=== PATIENT | female | born 1965 | race Caucasian/White ===

== ENCOUNTER 2017-12-01 06:01 | Day surgery (SDC) | payer BC, SELFPAY ==
[2017-12-01] VITALS (10 sets, daily range): BP systolic 102–133; BP diastolic 44–86; PULSE 57–73; RESP 16–17; TEMP 36.3–37.1; O2SAT 90–100; BMI 24.3
--- NOTE | 2017-12-01 07:30 | GALL_PTH ---
PATIENT: SEJAL BALTAZAR LOC: [facility] – [place] U#:[id number] AGE/SX: 52/F ROOM: RE12/01/[address]: Dr. Mikel Ayoub MD : 1965 BED: DIS: 12/01/2017 SPEC #: [id number] RECD: 12/01/17 09:08 STATUS: ANGELO EVIN #: [id number] SORIN: 12/01/17 07:[address]: Mikel Ayoub DEPT: SURGICAL PATHOLOGY RECD BY: Bibi Cummings ENTERED: 12/01/17 10:03 SP TYPE: MAURICIO BUSTILLO DR: Dr. Albaro Anaya III, MD Tissues: Gallbladder, NOS Procedures: Surgery Specimen Level III HEADER OPERATION: Laparoscopic cholecystectomy with IOC PRE-OP DIAGNOSIS: Right upper quadrant pain, abnormal biliary HIDA scan TISSUE SUBMITTED: Gallbladder MICROSCOPIC DIAGNOSIS Gallbladder: Minimal chronic cholecystitis. No stones are identified in the container or in the gallbladder. SJ:deyanira 12/02/17 MICROSCOPIC DESCRIPTION Slides are reviewed. GROSS DESCRIPTION Received is one container labeled with the patient's name and designated gallbladder. The specimen consists of a gallbladder measuring 8 x 2.5 x 2.5 cm. The external surface is smooth and glistening. Focally, it is granular, hemorrhagic and contains cautery artifact. The lumen of the gallbladder contains mucoid bile and no calculi. The mucosa is bile-stained and without any mass lesions. The gallbladder wall averages 0.1 cm in thickness and is free of mass lesions. Ip/Mosaic Technician sections of the gallbladder and the cystic duct are submitted in one cassette. / AM:deyanira 12/01/17 TC:3 CPT: 82702
[2017-12-01] MEDS: Cefazolin 2 GM in 0.9% Normal Saline 100 ML IV (07:41)
[2017-12-01] MEDS: Bupivacaine 0.5% PF 10 ML VIAL (09:00)
--- NOTE | 2017-12-01 09:07 | PCM.OPRPT ---
Report of Operation Date of Procedure: 12/01/17 Pre-Operative Diagnosis: biliary colic Post-Operative Diagnosis: biliary colic, normal IOC Surgery/Procedure Performed:: laparoscopic cholecystectomy with intraoperative cholangiogram Description of Surgical Findings:: as above learning and development associate: Alvarado Ribeiro Type of Anesthesia:: General Anesthesiologist: Zach Rodriguez - ASA2 Specimen's removed: gallbladder Estimated Blood Loss (mL): 10 Fluids Replaced: 900 Description of Procedure: The patient was brought to the operating suite. Sign in was performed verifying patient, site, position, SCIP antibiotic prophylaxis- 2 gm of Ancef and DVT prophylaxis with SCDs. Following induction of general anesthetic. The patients abdomen was prepped and draped in the usual fashion. Timeout was performed verifying patient, site, position. Local anesthetic was injected below the umbilicus. Incision made and dissection carried down to the umbilical root fascia. 2 stay sutures were placed. Incision made in the fascia, the peritoneum entered under direct visualization. A 10 mm Peralta trocar was inserted and secured with the stay sutures. Pneumoperitoneum to 15 mmHg was insufflated. Visual inspection revealed few adhesions to the gallbladder. the remainder of the visualized intra-abdominal structures were unremarkable. 3 right upper quadrant 5 ports were placed in the standard position. The gallbladder was grasped retracted upward and outward. Dissection was carried out in Calots triangle. When a critical view of the neck of the gallbladder funneling of the cystic duct with no signs of aberrant ductal structures were seen, a clip was placed on the neck of the gallbladder cystic duct junction. A partial ductotomy was made. A Cholangiocath was inserted into the duct and secured with a clip. Intraoperative cholangiogram was performed demonstrating filling of the cystic duct filling the common bile duct and emptying into the duodenum without signs of obstruction area and the clip and catheter were removed. 2 clips placed on the cystic duct and the cystic duct divided. Dissection was continued until the cystic artery was clearly dissected and identified. The artery was then doubly clipped proximally singly clipped distally and divided. The gallbladder was then dissected free from the gallbladder fossa using electrocautery. The gallbladder was placed in an Endobag and removed through the umbilical port site. An 0 PDS diouln-fk-wqavo suture was placed around the umbilical port site defect. Pneumoperitoneum was reestablished. The gallbladder fossa was checked for hemostasis. With good hemostasis, the area was irrigated and aspirated to clear. 5mm ports were removed under direct visualization with no signs of bleeding. Pneumoperitoneum was released. The Peralta trocar was removed. The umbilical fascial suture was secured area did skin was closed with interrupted 4-0 Monocryl subcuticular sutures. Steri-Strips and bandages were applied. The patient was brought to recovery room in stable condition. - Admit VTE Documentation VTE Present on Admission: No VTE Mechan Device Prophylaxis: SCD's VTE Pharm Prophylaxis ordered?: No
--- NOTE | 2017-12-01 09:12 | PCM.DC.GB ---
Discharge Diet: Light diet - advance as tolerated Discharge Activity: May Not Drive - for 2-3 days or while taking narcotic pain medications., - - Do not drive, work heavy equipment or sign legal documents for 24 hours. May shower in (days): 1 - with the bandage in place. Additional Activity Instructions:: Pain medication may cause nausea. You should typically eat light foods as you take your pain medications. Pain medication may also cause constipation. If this is a problem for you, please discuss with your doctor. Call your doctor if your incision/area has: Continuous Slow Oozing, Sudden Increased Bleeding, Increased Pain/ Swelling, Increased Redness, Foul Smelling Discharge Call your doctor if you observe: Fever of 101 or Higher Suture Line Care: Avoid Pulling/Pushing, Avoid Pinching/Bending Additional Dressing/Incision Instructions:: Leave operative bandaids on for 2 days. When you remove dressing, leave Steri-Strips on until your follow-up appointment, or until the Steri-Strips fall off on their own. Allergies/Adverse Reactions: Allergies doxycycline Adverse Reaction (Verified 12/01/17 06:55) not sure- n/v erythromycin base Adverse Reaction (Verified 11/26/17 11:01) Nausea/Vom/Diarrhea nitrofurantoin [From Macrobid] Adverse Reaction (Verified 11/26/17 11:01) Nausea/Vom/Diarrhea tramadol [From Ultram] Adverse Reaction (Verified 11/26/17 11:01) Nausea/Vom/Diarrhea Medications to take at Discharge Omeprazole [Prilosec] 20 mg PO DAILY 03/23/16 Multivitamin [Multiple Vitamins] 1 each PO DAILY 11/26/17 Oxycodone HCl/Acetaminophen [Percocet 5/325] 1 tab PO Q4H PRN PRN 7 Days #14 tab 12/01/17 The following prescriptions were given: Oxycodone HCl/Acetaminophen [Percocet 5/325] 1 tab PO Q4H PRN PRN 7 Days #14 tab PRN Reason: Pain Primary Care Physician: Albaro Anaya III, MD [Primary Care Provider] - Test Results: Test results from this visit will be discussed in further detail at your follow-up appointment, if applicable. Please Follow Up With: Mikel Ayoub MD - Please call [phone] to schedule an appointment. When: 7 days after your surgery
== END 2017-12-01 11:52 | disposition home or self-care (01) ==
LOC: SDC 06:03 → AC 06:04
PROVIDERS: Family Provider Family Medicine; PCP Family Medicine; Visit Provider Surgery
PROC: (CPT 47610; principal; 2017-12-01 07:10)
DX: K81.1 Chronic cholecystitis (principal); E78.4 Other hyperlipidemia; K21.9 Gastro-esophageal reflux disease without esophagitis; Z78.0 Asymptomatic menopausal state; Z79.899 Other long term (current) drug therapy
CPT/HCPCS: 00790; 47563; 74300; 76000; 88304; 93005; J7120

== ENCOUNTER → 2018-07-13 15:51 | Outpatient (CLI) | payer BC, SELFPAY ==
[2017-12-01 06:57] VITALS: BMI 24.3
== END ==
PROVIDERS: Family Provider Family Medicine; PCP Family Medicine; Referring Provider Otolaryngology; Visit Provider Otolaryngology
DX: H66.41 Suppurative otitis media, unspecified, right ear (principal)
CPT/HCPCS: 87070; 87075; 87077; 87186; 87205

== ENCOUNTER → 2023-06-09 | Outpatient (CLI) | payer OTHER, SELFPAY ==
--- OUTSIDE RECORDS SUMMARY | 2023-06-09 10:28 | XMS RPT_ITS | CCD ---
Author Name Unknown Address [address] [place] [address] Organization [facility] Care Team Providers Care [facility] Name Role Phone KERRY PARISH (SIMONIZER) Unavailable Unavailable JAMES, ANNIE PAC Admitting Unavailable JAMES, ANNIE PAC Attending Unavailable JAMES, ANNIE PAC Primary Care Unavailable CEBUL ALEXANDRE III Consulting Unavailable PROVIDER, UNKNOWN Consulting Unavailable JAMES, ANNIE PAC Admitting Unavailable JAMES, ANNIE PAC Attending Unavailable JAMES, ANNIE PAC Primary Care Unavailable CEBUAliyah ALEXANDRE III Consulting Unavailable PROVIDER, UNKNOWN Consulting Unavailable Ramez Sanchez MD Primary Care Provider Ramez Sanchez MD Primary Care Provider RAMEZ SANCHEZ Primary Care Unavailab RAMEZ Varela Primary Care Unavailab CYNTHIA Bunch Attending Unavailable JAZMYNE PINEDA Referring Unavailable RAMEZ SANCHEZ Primary Care Unavailab RAMEZ Varela Primary Care Unavailab JAZMYNE Schneider Attending Unavailable RAMEZ SANCHEZ Primary Care Unavailab MIKY Shelley Attending Unavailable MIKY URBANO Referring Unavailable RAMEZ SANCHEZ Primary Care Unavailab MIKY Shelley Attending Unavailable RAMEZ SANCHEZ Primary Care Unavailab MIKY Shelley Referring Unavailable RAMEZ SANCHEZ Primary Care Unavailab RAMEZ Varela Referring Unavailab RAMEZ Varela Primary Care Unavailab RAMEZ Varela Attending Unavailab RAMEZ Varela Primary Care Unavailab RAMEZ Varela Attending Unavailab RAMEZ Varela Referring Unavailab RAMEZ Varela Primary Care Unavailab RAMEZ Varela Primary Care Unavailab le Allergies Allergy Classification Reported Allergen(s) Allergy Type Date of Onset Reaction(s) Facility (20 sources) doxycycline; Translations: [DOXYCYCLINE] Drug Allergy 02-16-[address] [facility] Repository (20 sources) erythromycin; Translations: [ERYTHROMYCIN] Drug Allergy 11-21-[address] [facility]ository (20 sources) traMADol; Translations: [TRAMADOL HCL] Drug Allergy 11-21-[address] [facility]ository (20 sources) NITROFURANTOIN MONOHYD/M-CRYST; Translations: [NITROFURANTOIN MONOHYD/M-CRYST] Propensity to adverse reactions to drug (disorder) 08-18-19 10 GI Upset, Vomiting [facility] Medications Current Medications Medication Drug Class(es) Dates Sig (Normalized) Sig (Original) cephalexin 500 mg oral capsule (2 sources) Cephalosporin Antibacterial Start: 06-02-2023 End: 06-09-2023 take 1 capsule by mouth twice daily cephALEXin (KEFLEX) 500 mg capsule Indications: Urinary frequency Take 1 capsule by mouth two times a day for 7 days. 14 capsule 0 06/02/2023 06/09/2023 Active Completed/Discontinued Medications Medication Drug Class(es) Dates Sig (Normalized) Sig (Original) MULTI-VITAMIN TAB (19 sources) Start: 03-03-2005 MULTI-VITAMIN TAB .QD 0 03/03/2005 Active Problems Active Problems Problem Classification Problem Date Documented Date Episodic/Chronic Esophageal disorders (20 sources) Gastroesophageal reflux disease without esophagitis; Translations: [Gastro-esophageal reflux disease without esophagitis] Onset: 11-20-2004 10-17-2018 Chronic Nonmalignant breast conditions (1 source) Mastodynia; Translations: [Mastodynia] Episodic Other connective tissue disease (1 source) Pain of left upper arm; Translations: [Pain in left upper arm] Episodic Other female genital disorders (1 source) Vaginal irritation; Translations: [Other specified noninflammatory disorders of vagina] Episodic Other nervous system disorders (20 sources) Bilateral carpal tunnel syndrome; Translations: [Carpal tunnel syndrome, bilateral upper limbs] Onset: 04-17-2019 04-17-2019 Chronic Other nervous system disorders (1 source) Neuropathy; Translations: [Polyneuropathy, unspecified] 12-14-2022 Chronic Other nervous system disorders (1 source) Numbness and tingling sensation of skin; Translations: [Anesthesia of skin] Episodic Other nutritional; endocrine; and metabolic disorders (1 source) Overweight in adulthood with body mass index of 25 or more but less than 30; Translations: [Overweight] 12-14-2022 Episodic Other screening for suspected conditions (not mental disorders or infectious disease) (5 sources) Patient encounter status; Translations: [Encounter for screening mammogram for malignant neoplasm of breast] Onset: 03-09-2023 Episodic Other skin disorders (1 source) Longitudinal melanonychia; Translations: [Other nail disorders] Episodic Other upper respiratory disease (1 source) Other seasonal allergic rhinitis; Translations: [Seasonal allergies] Onset: 08-24-2022 Chronic Other upper respiratory infections (3 sources) Acute upper respiratory infection; Translations: [Acute upper respiratory infection, unspecified] Episodic Spondylosis; intervertebral disc disorders; other back problems (20 sources) Degeneration of lumbar intervertebral disc; Translations: [Other intervertebral disc degeneration, lumbar region] Onset: 08-20-2015 08-20-2015 Chronic Past or Other Problems Problem Classification Problem Date Documented Date Episodic/Chronic Abdominal pain (20 sources) Right upper quadrant pain; Translations: [Epigastric pain] Onset: 10-19-2017 10-17-2018 Episodic Genitourinary symptoms and ill-defined conditions (4 sources) Increased frequency of urination; Translations: [Frequency of micturition] Onset: 10-13-2022 Episodic Immunizations and screening for infectious disease (4 sources) Needs influenza immunization; Translations: [Encounter for immunization] Onset: 12-14-2022 Episodic Other female genital disorders (1 source) Other specified noninflammatory disorders of vagina; Translations: [Vaginal irritation] Onset: 10-13-2022 Episodic Other nervous system disorders (1 source) Anesthesia of skin; Translations: [Numbness and tingling] Onset: 06-19-2022 Episodic Other nervous system disorders (1 source) Paresthesia of skin; Translations: [Numbness and tingling] Onset: 06-19-2022 Episodic Other nutritional; endocrine; and metabolic disorders (1 source) Overweight; Translations: [Overweight (BMI 25.0-29.9)] Onset: 08-24-2022 Episodic Residual codes; unclassified (19 sources) Family history of osteoporosis; Translations: [Family history of osteoporosis] Onset: 12-18-2014 12-18-2014 Episodic Sexually transmitted infections (not HIV or hepatitis) (20 sources) Human papillomavirus deoxyribonucleic acid test positive, high risk on cervical specimen; Translations: [Cervical high risk human papillomavirus (HPV) DNA test positive] Onset: 03-29-2020 03-29-2020 Episodic Spondylosis; intervertebral disc disorders; other back problems (20 sources) Low back pain; Translations: [Lumbago] Onset: 05-11-2000 11-20-2004 Episodic Results Test Name Value Interpretation Reference Range Facil ity Vital Signs Date Time Vital Sign Value Performing Clinician Faci lity 06-02-2023 11:37-0500 Body temperature 97.81 [degF] Nancy Bennett APRN.SIMONIZER Work Phone: [facility] 06-02-2023 11:37-0500 Body weight 71.58 kg Nancy Bennett APRN.SIMONIZER Work Phone: [facility] 06-02-2023 11:37-0500 Diastolic blood pressure 82 mm[Hg] Nancy Bennett APRN.SIMONIZER Work Phone: [facility] 06-02-2023 11:37-0500 Heart rate 81 /min Nancy Bennett APRN.SIMONIZER Work Phone: [facility] 06-02-2023 11:37-0500 Respiratory rate 19 /min Nancy Bennett APRN.SIMONIZER Work Phone: [facility] 06-02-2023 11:37-0500 SaO2% (BldA) [Mass fraction] 97 % Nancy Bennett APRN.SIMONIZER Work Phone: [facility] 06-02-2023 11:37-0500 Systolic blood pressure 110 mm[Hg] Nancy Bennett APRN.SIMONIZER Work Phone: [facility] 12-14-2022 09:37-0400 Body weight 71.76 kg Ramez Sanchez MD Work Phone: [facility] 12-14-2022 09:37-0400 Diastolic blood pressure 76 mm[Hg] Ramez Sanchez MD Work Phone: [facility] 12-14-2022 09:37-0400 Heart rate 74 /min Ramez Sanchez MD Work Phone: [facility] 12-14-2022 09:37-0400 Respiratory rate 16 /min Ramez Sanchez MD Work Phone: [facility] 12-14-2022 09:37-0400 SaO2% (BldA) [Mass fraction] 100 % Ramez Sanchez MD Work Phone: [facility] 12-14-2022 09:37-0400 Systolic blood pressure 112 mm[Hg] Ramez Sanchez MD Work Phone: [facility] 10-13-2022 10:41-0400 Body temperature 97.59 [degF] Ramez Sanchez MD Work Phone: [facility] 10-13-2022 10:41-0400 Diastolic blood pressure 70 mm[Hg] Ramez Sanchez MD Work Phone: [facility] 10-13-2022 10:41-0400 Heart rate 66 /min Ramez Sanchez MD Work Phone: [facility] 10-13-2022 10:41-0400 Respiratory rate 16 /min Ramez Sanchez MD Work Phone: [facility] 10-13-2022 10:41-0400 SaO2% (BldA) [Mass fraction] 98 % Ramez Sanchez MD Work Phone: [facility] 10-13-2022 10:41-0400 Systolic blood pressure 110 mm[Hg] Ramez Sanchez MD Work Phone: [facility] 10-02-2022 15:28-0400 Body temperature 99.7 [degF] Reji Lafleur MD Work Phone: [facility] 10-02-2022 15:28-0400 Body weight 70.58 kg Reji Lafleur MD Work Phone: [facility] 10-02-2022 15:28-0400 Diastolic blood pressure 94 mm[Hg] Reji Lafleur MD Work Phone: [facility] 10-02-2022 15:28-0400 Heart rate 92 /min Reji Lafleur MD Work Phone: [facility] 10-02-2022 15:28-0400 Respiratory rate 18 /min Reji Lafleur MD Work Phone: [facility] 10-02-2022 15:28-0400 SaO2% (BldA) [Mass fraction] 98 % Reji Lafleur MD Work Phone: [facility] 10-02-2022 15:28-0400 Systolic blood pressure 130 mm[Hg] Reji Lafleur MD Work Phone: [facility] 09-21-2022 13:43-0400 Body temperature 96.91 [degF] Maggi Praisler-Wood ADMINISTRATIVE SERVICES OFFICER.SIMONIZER Work Phone: [facility] 09-21-2022 13:43-0400 Body weight 71.67 kg Maggi Praisler-Wood ADMINISTRATIVE SERVICES OFFICER.SIMONIZER Work Phone: [facility] 09-21-2022 13:43-0400 Diastolic blood pressure 72 mm[Hg] Maggi Praisler-Wood ADMINISTRATIVE SERVICES OFFICER.SIMONIZER Work Phone: [facility] 09-21-2022 13:43-0400 Heart rate 80 /min Maggi Praisler-Wood ADMINISTRATIVE SERVICES OFFICER.SIMONIZER Work Phone: [facility] 09-21-2022 13:43-0400 Respiratory rate 16 /min Maggi Praisler-Wood ADMINISTRATIVE SERVICES OFFICER.SIMONIZER Work Phone: [facility] 09-21-2022 13:43-0400 SaO2% (BldA) [Mass fraction] 95 % Maggi Praisler-Wood ADMINISTRATIVE SERVICES OFFICER.SIMONIZER Work Phone: [facility] 09-21-2022 13:43-0400 Systolic blood pressure 122 mm[Hg] Maggi Praisler-Wood ADMINISTRATIVE SERVICES OFFICER.SIMONIZER Work Phone: [facility] 06-19-2022 11:41-0500 Body temperature 98.1 [degF] Jazmyne Tannhof ADMINISTRATIVE SERVICES OFFICER.SIMONIZER Work Phone: [facility] 06-19-2022 11:41-0500 Body weight 69.4 kg Jazmyne Tannhof ADMINISTRATIVE SERVICES OFFICER.SIMONIZER Work Phone: [facility] 06-19-2022 11:41-0500 Diastolic blood pressure 88 mm[Hg] Jazmyne Tannhof ADMINISTRATIVE SERVICES OFFICER.SIMONIZER Work Phone: [facility] 06-19-2022 11:41-0500 Heart rate 82 /min Jazmyne Tannhof ADMINISTRATIVE SERVICES OFFICER.SIMONIZER Work Phone: [facility] 06-19-2022 11:41-0500 Respiratory rate 16 /min Jazmyne Tannhof ADMINISTRATIVE SERVICES OFFICER.SIMONIZER Work Phone: [facility] 06-19-2022 11:41-0500 SaO2% (BldA) [Mass fraction] 96 % Jazmyne Tannhof ADMINISTRATIVE SERVICES OFFICER.SIMONIZER Work Phone: [facility] 06-19-2022 11:41-0500 Systolic blood pressure 120 mm[Hg] Jazmyne Tannhof ADMINISTRATIVE SERVICES OFFICER.SIMONIZER Work Phone: [facility] 04-27-2022 15:06-0500 Body temperature 97.81 [degF] Cynthia Podlogar ADMINISTRATIVE SERVICES OFFICER.SIMONIZER Work Phone: [facility] 04-27-2022 15:06-0500 Body weight 70.22 kg Cynthia Podlogar ADMINISTRATIVE SERVICES OFFICER.SIMONIZER Work Phone: [facility] 04-27-2022 15:06-0500 Diastolic blood pressure 68 mm[Hg] Cynthia Podlogar ADMINISTRATIVE SERVICES OFFICER.SIMONIZER Work Phone: [facility] 04-27-2022 15:06-0500 Heart rate 81 /min Cynthia Podlogar ADMINISTRATIVE SERVICES OFFICER.SIMONIZER Work Phone: [facility] 04-27-2022 15:06-0500 Respiratory rate 20 /min Cynthia Podlogar ADMINISTRATIVE SERVICES OFFICER.SIMONIZER Work Phone: [facility] 04-27-2022 15:06-0500 SaO2% (BldA) [Mass fraction] 99 % Cynthia Podlogar ADMINISTRATIVE SERVICES OFFICER.SIMONIZER Work Phone: [facility] 04-27-2022 15:06-0500 Systolic blood pressure 126 mm[Hg] Cynthia Podlogar ADMINISTRATIVE SERVICES OFFICER.SIMONIZER Work Phone: [facility] 03-23-2022 15:16-0500 Body weight 69.4 kg Miky Urbano MD Work Phone: [facility] 03-23-2022 15:16-0500 Diastolic blood pressure 82 mm[Hg] Miky Urbano MD Work Phone: [facility] 03-23-2022 15:16-0500 Systolic blood pressure 122 mm[Hg] Miky Urbano MD Work Phone: [facility] 03-03-2022 14:01-0500 Body height 158.8 cm Miky Urbano MD Work Phone: [facility] 03-03-2022 14:01-0500 Body weight 68.49 kg Miky Urbano MD Work Phone: [facility] 03-03-2022 14:01-0500 Diastolic blood pressure 78 mm[Hg] Miky Urbano MD Work Phone: [facility] 03-03-2022 14:01-0500 Systolic blood pressure 116 mm[Hg] Miky Urbano MD Work Phone: [facility] 02-11-2022 14:42-0400 Body weight 69.31 kg Cynthia Podlogar ADMINISTRATIVE SERVICES OFFICER.SIMONIZER Work Phone: [facility] 02-11-2022 14:42-0400 Diastolic blood pressure 84 mm[Hg] Cynthia Podlogar ADMINISTRATIVE SERVICES OFFICER.SIMONIZER Work Phone: [facility] 02-11-2022 14:42-0400 Heart rate 69 /min Cynthia Podlogar ADMINISTRATIVE SERVICES OFFICER.SIMONIZER Work Phone: [facility] 10-26-2022 14:42-0400 Respiratory rate 16 /min Cynthia Podlogar ADMINISTRATIVE SERVICES OFFICER.SIMONIZER Work Phone: [facility] 02-11-2022 14:42-0400 SaO2% (BldA) [Mass fraction] 96 % Cynthia Podlogar ADMINISTRATIVE SERVICES OFFICER.SIMONIZER Work Phone: [facility] 02-11-2022 14:42-0400 Systolic blood pressure 122 mm[Hg] Cynthia Podlogar ADMINISTRATIVE SERVICES OFFICER.SIMONIZER Work Phone: [facility] Encounters Encounter Date Encounter Type Care Provider Facility Start: 06-02-2023 End: 06-02-2023 ambulatory RAMEZ SANCHEZ Facility:[facility] Start: 06-02-2023 End: 06-02-2023 Patient encounter procedure Nancy Bennett APRN.SIMONIZER Work Phone: [facility] Procedures Date Procedure Procedure Detail Performing Clinician Start: 06-02-2023 Urnls dip stick/tabl et rgnt auto w/o microscopy Nancy Bennett APRN.SIMONIZER Work Phone: Start: 12-14-2022 Lipid 1996 panel - S dilan or Plasma Screen Wstr Start: 10-13-2022 Urnls dip stick/tabl et rgnt auto w/o microscopy Ramez Sanchez MD Work Phone: Start: 10-13-2022 Urnls dip stick/tabl et rgnt auto w/o microscopy Ramez Sanchez MD Work Phone: Start: 10-02-2022 Urnls dip stick/tabl et rgnt auto w/o microscopy Nancy Bennett APRN.SIMONIZER Work Phone: Start: 09-21-2022 COVID WITH FLUA+B, ROUTINE Maggi Taveras ADMINISTRATIVE SERVICES OFFICER.SIMONIZER Work Phone: Start: 09-21-2022 STREP A MOLECULAR (POC) Jaquelin Schmid PA-C Work Phone: Start: 03-23-2022 INFLUENZA VACCINE QUADRIVALENT 6 MO - 64 YRS IM Miky Urbano MD Work Phone: Start: 03-23-2022 Urine test visual color cmprsn meths Miky Urbano MD Work Phone: Start: 03-05-2022 MINDI SCREENING W JEZ Co juanito Noble ADMINISTRATIVE SERVICES OFFICER.CNM Work Phone: Start: 03-05-2022 Mammography Mammograph y Coordinator Start: 02-19-2021 Mammography Cynthia Podl joon ADMINISTRATIVE SERVICES OFFICER.SIMONIZER Work Phone: Start: 07-16-2017 Colonoscopy Cynthia Podl ogdanis ADMINISTRATIVE SERVICES OFFICER.SIMONIZER Work Phone: Plan of Treatment Date Care Activity Detail Author Start: 03-09-2028 HPV Testing HPV Testing [facility] Start: 03-09-2028 Pap Testing Pap Testing [facility] Start: 03-09-2028 Screening for malign ant neoplasm of cervix [facility] Start: 12-15-2027 Lipid 1996 panel - S dilan or Plasma Lipid Screening [facility] Start: 12-15-2027 Lipid panel Lipid Screening [facility] Start: 12-15-2027 LIPID SCREEN LIPID SCREEN [facility] Start: 09-28-2027 Urine microalbumin profile [facility] Start: 07-17-2027 Colonoscopy COLONOSCOPY [facility] Start: 07-17-2027 COLORECTAL CANCER SCREENING COLORECTAL CANCER SCREENING [facility] Start: 07-17-2027 Screening for malign ant neoplasm of colon [facility] Start: 03-03-2027 HPV TESTING HPV TESTING [facility] Start: 03-03-2027 PAP TESTING PAP TESTING [facility] Start: 04-14-2026 LIPID SCREEN LIPID SCREEN [facility] Start: 03-07-2026 HPV TESTING HPV TESTING [facility] Start: 03-07-2026 PAP TESTING PAP TESTING [facility] Start: 12-14-2025 DIABETES SCREEN DIABETES SCREEN [facility] Start: 12-14-2025 Diabetes Screening Diabetes Screenin g [facility] Start: 06-19-2025 DIABETES SCREEN DIABETES SCREEN [facility] Start: 04-14-2024 DIABETES SCREEN DIABETES SCREEN [facility] Start: 03-09-2024 Mammography Mammogram Screening [facility] Start: 03-09-2024 Screening for malign ant neoplasm of breast Mammogram Screening [facility] Start: 12-15-2023 COVID-19 VACCINE (#1) COVID-19 VACCI NE (#1) [facility] Immunizations Immunization Date Immunization Notes Care Provider Dayana matos 03-23-2022 influenza, injectabl e, quadrivalent, contains preservative Miky Urbano MD Work Phone: [facility] 03-23-2022 influenza virus vacc ine, unspecified formulation Screen Wstr [facility] 03-19-2021 influenza, injectabl e, quadrivalent, contains preservative Cynthia Podlogar ADMINISTRATIVE SERVICES OFFICER.SIMONIZER Work Phone: [facility] 02-18-2020 influenza, seasonal, injectable Cynthia Podlogar ADMINISTRATIVE SERVICES OFFICER.[facility] Work Phone: [facility] 02-17-2019 influenza, seasonal, injectable Cynthia Podlogar ADMINISTRATIVE SERVICES OFFICER.[facility] Work Phone: [facility] 01-26-2018 influenza, injectabl e, quadrivalent, preservative free Cynthia Podlogar ADMINISTRATIVE SERVICES OFFICER.[facility] Work Phone: [facility] Work Phone: 09-27-2017 tetanus toxoid, redu jasper diphtheria toxoid, and acellular pertussis vaccine, adsorbed Cynthia Podlogar ADMINISTRATIVE SERVICES OFFICER.[facility] Work Phone: [facility] 02-17-2011 influenza virus vacc ine, unspecified formulation Cynthia Podlogar ADMINISTRATIVE SERVICES OFFICER.[facility] Work Phone: [facility] 04-03-2009 novel Influenza-H1N1 -09, live virus for nasal administration Cynthia Podlogar ADMINISTRATIVE SERVICES OFFICER.SIMONIZER Work Phone: [facility] Work Phone: 12-18-2002 influenza virus vacc ine, unspecified formulation Cynthia Podlogar ADMINISTRATIVE SERVICES OFFICER.[facility] Work Phone: [facility] 12-18-2002 influenza virus vacc ine, whole virus Cynthia Podlogar ADMINISTRATIVE SERVICES OFFICER.[facility] Work Phone: [facility] Work Phone: Payers Date Payer Category Payer Unknown [id number] 2022 Unknown [id number] 2011 Unknown [id number] 1965 Unknown [id number] 1965 Unknown [id number] Unknown [id number] Social History Date Type Detail Facility Start: 02-11-2022 Tobacco smoking stat us LAIS Never smoked tobacco [facility] Start: 02-11-2022 Tobacco use and exposure Smoke less tobacco non-user [facility] Start: 02-11-2022 End: 06-02-2023 Alcohol intake Current drinker of alcohol (finding) [facility] Start: 02-20-2020 End: 08-23-2022 History SDOH Alcohol Frequency 3 [facility] Start: 02-20-2020 End: 08-23-2022 History SDOH Alcohol Std Drinks 1 [facility] Start: 04-05-2014 [facility] Start: 1965 Sex Assigned At Not on file [facility] Start: 02-21-2022 End: 03-03-2022 Exposure to SARS-CoV-2 (event) Not sure [facility] Start: 08-23-2022 History SDOH Alcohol Std Drinks 2 [facility] Start: 08-23-2022 History SDOH Social Connections Phone 5 [facility] Start: 08-23-2022 History SDOH Physica l Activity DPW 4 [facility] Start: 08-23-2022 History SDOH Physica l Activity MPS 6 [facility] Start: 08-23-2022 End: 12-14-2022 [facility] Start: 08-23-2022 End: 12-14-2022 Social connection and isolation panel [facility] Do you belong to any clubs or organizations such as judaism groups, unions, fraternal or athletic groups, or school groups? No [facility] Attends Club or Organization Meetings Not on file [facility] Are you now , , , , never or living with a partner? [facility] How often to you hav e a drink containing alcohol? 2-4 times a month [facility] How many standard dr inks containing alcohol do you have on a typical day? 3 or 4 [facility] How often do you hav e 6 or more drinks on 1 occasion? Monthly [facility] Do you feel stress - tense, restless, nervous, or anxious, or unable to sleep at night because your mind is troubled all the time - these days [OSQ] Not at all [facility] (I/We) worried wheth er (my/our) food would run out before (I/we) got money to buy more. Never true [facility] How many standard dr inks containing alcohol do you have on a typical day? 1 or 2 [facility] How often do you hav e 6 or more drinks on 1 occasion? Never [facility] How often do you hav e 6 or more drinks on 1 occasion? Monthly [facility] Clinical Notes 10-17-2018 to 06-02-2023 Nancy Bennett APRN.[facility] - 06/02/2023 11:37 AM ESTTelephone Encounter - Lizette Urban LPN - 03/23/2023 10:16 AM ESTTelephone Encounter - Lizette Urban LPN - 03/23/2023 10:13 AM EST Note Date & Type Note Facility 06-02-2023 Note HNO ID: [id number] Author: NANCY BENNETT APRN.[place] Service: ? Author Type: Nurse Practitioner Type: Progress Notes Filed: 06/02/2023 11:49 Note Text: CC: Patient presents with: Urinary Problem: Frequency, painful x 3 days HPI Carlene Baltazar is a 57 year old female who presents with complaint of possible UTI. These symptoms have been present for 3 days. Associated symptoms: burning and frequency Denies: fever, chills, sweats, abdominal pain, and flank pain Treatments: nothing The ROS was otherwise negative. PMH, Medications, labs, allergies, and recent past visits with PCP were reviewed and updated as able. 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-[facility] [place] [facility] Carpal tunnel syndrome Right Cervical high risk HPV (human papillomavirus) test positive 2018,2019,2020 Degenerative lumbar disc 08/20/2015 Esophageal reflux resolved Hyperlipidemia LDL goal <130 11/20/2004 Lumbago Better Lumbosacral radiculopathy at S1 12/26/2015 Other and unspecified hyperlipidemia Palpitations resolved Piriformis syndrome of left side 08/20/2015 Plantar fasciitis Snoring PAST SURGICAL HISTORY Procedure Laterality Date COLONOSCOPY FLX DX W/COLLJ SPEC WHEN PFRMD 07/16/2017 Colonoscopy - normal-10 year follow-up ESOPHAGOGASTRODUODENOSCOPY TRANSORAL DIAGNOSTIC 11/05/2017 EGD ESSURE Approx 2004 LAPAROSCOPY SURG CHOLECYSTECTOMY 12/01/2017 Cholecystectomy, lap PAST SURGICAL HISTORY OF Left 08/2021 Removal of basosquamous skin cancer from left shoulder RETROGRADE URETHROGRAM REVISE MEDIAN N/CARPAL TUNNEL SURG Right 11/2021 ALLERGIES Doxycycline, Erythromycin, Macrobid [Nitrofurantoin Monohyd/M-Cryst], and Ultram [Tramadol Hcl] MEDICATIONS omeprazole (PRILOSEC) 20 mg capsule TAKE 1 CAPSULE DAILY BEFOREBREAKFAST; 1/2 HOUR BEFORE A MEAL MULTI-VITAMIN TAB .QD FAMILY HISTORY Problem Relation Age of Onset Thyroid Mother Osteoporosis Mother other (gerd) Mother Alcohol/Drug Father CIRRHOSIS Cancer Maternal Uncle Diabetes Paternal Grandmother Hypertension Paternal Grandmother Stroke Paternal Grandmother Diabetes Paternal Grandfather of [place] Diabetes Brother Alcohol/Drug Brother Social History Tobacco Use Smoking status: Never Smokeless tobacco: Never Vaping Use Vaping Use: Never used Substance Use Topics Alcohol use: Yes Alcohol/week: 3.0 standard drinks of alcohol Types: 3 Glasses of wine per week Comment: Occasionally Drug use: No ASSESSMENT/PLAN: 1. Urinary frequency - ICD9: 788.41, ICD10: R35.0 - UA DIP, URINE (POC) - URINE CULTURE - CEPHALEXIN 500 MG CAPSULE Prescription instructions reviewed with patient as applicable. Potential red flag symptoms discussed with the patient. Reviewed appropriate action plan to take if red flag symptoms occur. Patient agreeable to treatment plan. Nancy Bennett APRN.[facility] 06-02-2023 History of Presen t illness Narrative CC: Patient presents with: Urinary Problem: Frequency, painful x 3 days HPI Carlene Baltazar is a 57 year old female who presents with complaint of possible UTI. These symptoms have been present for 3 days. Associated symptoms: burning and frequency Denies: fever, chills, sweats, abdominal pain, and flank pain Treatments: nothing The ROS was otherwise negative. PMH, Medications, labs, allergies, and recent past visits with PCP were reviewed and updated as able. PHYSICAL EXAM: [facility] 12/09/2014 General: Well appearing and alert CV: Regular rate and rhythm without obvious murmur Lungs: clear to auscultation bilaterally Back: straight and symmetric Abdomen: soft, nontender, nondistended PAST MEDICAL HISTORY Diagnosis Date Arthritis of left hip 08/20/2015 Basosquamous carcinoma of skin Removed 08/2021-[facility] [place] [facility] Carpal tunnel syndrome Right Cervical high risk HPV (human papillomavirus) test positive 2018,2019,2020 Degenerative lumbar disc 08/20/2015 Esophageal reflux resolved Hyperlipidemia LDL goal <130 11/20/2004 Lumbago Better Lumbosacral radiculopathy at S1 12/26/2015 Other and unspecified hyperlipidemia Palpitations resolved Piriformis syndrome of left side 08/20/2015 Plantar fasciitis Snoring PAST SURGICAL HISTORY Procedure Laterality Date COLONOSCOPY FLX DX W/COLLJ SPEC WHEN PFRMD 07/16/2017 Colonoscopy - normal-10 year follow-up ESOPHAGOGASTRODUODENOSCOPY TRANSORAL DIAGNOSTIC 11/05/2017 EGD ESSURE Approx 2004 LAPAROSCOPY SURG CHOLECYSTECTOMY 12/01/2017 Cholecystectomy, lap PAST SURGICAL HISTORY OF Left 08/2021 Removal of basosquamous skin cancer from left shoulder RETROGRADE URETHROGRAM REVISE MEDIAN N/CARPAL TUNNEL SURG Right 11/2021 ALLERGIES Doxycycline, Erythromycin, Macrobid [Nitrofurantoin Monohyd/M-Cryst], and Ultram [Tramadol Hcl] MEDICATIONS omeprazole (PRILOSEC) 20 mg capsule TAKE 1 CAPSULE DAILY BEFOREBREAKFAST; 1/2 HOUR BEFORE A MEAL MULTI-VITAMIN TAB .QD FAMILY HISTORY Problem Relation Age of Onset Thyroid Mother Osteoporosis Mother other (gerd) Mother Alcohol/Drug Father CIRRHOSIS Cancer Maternal Uncle Diabetes Paternal Grandmother Hypertension Paternal Grandmother Stroke Paternal Grandmother Diabetes Paternal Grandfather of [place] Diabetes Brother Alcohol/Drug Brother Social History Tobacco Use Smoking status: Never Smokeless tobacco: Never Vaping Use Vaping Use: Never used Substance Use Topics Alcohol use: Yes Alcohol/week: 3.0 standard drinks of alcohol Types: 3 Glasses of wine per week Comment: Occasionally Drug use: No ASSESSMENT/PLAN: 1. Urinary frequency - ICD9: 788.41, ICD10: R35.0 - UA DIP, URINE (POC) - URINE CULTURE - CEPHALEXIN 500 MG CAPSULE Prescription instructions reviewed with patient as applicable. Potential red flag symptoms discussed with the patient. Reviewed appropriate action plan to take if red flag symptoms occur. Patient agreeable to treatment plan. Nancy Bennett APRN.[facility] documented in this encounter [facility] 03-31-2023 Note HNO ID: [id number] Author: Miky Urbano MD Service: ? Author Type: Physician Type: Progress Notes Filed: 03/31/2023 4:17 PM Note Text: Emergency Dispatch Operator offered: Patient accepts, visit chaperoned by Elisa Rodas MA. Carlene is a 57 year old who presents today for a colposcopy. The patient's last pap smear was Positive HPV from February 2023. Patient has a history of abnormal pap: Yes. The patient has had prior treatment: Colposcopy. test: negative UNIVERSAL PROTOCOL / SAFETY CHECKLIST Procedure to be Performed: Colposcopy Sign In: A Moment of CARE was completed. Personnel directly involved with the procedure wore the appropriate PPE (Personal Protective Equipment). Patient/Surrogate Stated/Verified: PATIENT VERIFIED(optional for EMERGENT procedures): Patient name, Date of , Relevant allergies, and The intended procedure Time Out Communication: Intended patient and procedure match the source documents. Consent documented and matches the intended procedure. Relevant labs, photos, and/or imaging studies have been reviewed. No implant(s) inserted. Sign Out: SIGN OUT (optional for EMERGENT procedures): All specimen containers correctly labeled. All instruments, equipment, possible retained foreign bodies accounted for. Post-procedure follow-up management communicated and Plan of Care Visit completed when applicable. PROCEDURE: EXTERNAL GENITALIA: Normal in appearance without lesions VAGINA: Normal in appearance without lesions CERVIX: Speculum placed in vagina and excellent visualization of cervix achieved. Cervix swabbed x 3 with 3% acetic acid solution. Cervix grossly normal. Squamocolumnar junction visualized. acetowhite changes noted at 12-1, 3 oclock, punctations noted -none, mosaicism noted -12 oclock, and atypical vasculature noted -none. BIOPSY: Done at 3:00, 6:00, 9:00, and 12:00 ECC: done HEMOSTASIS: Obtained with silver nitrate and pressure Procedure Summary: Patient tolerated procedure well and colposcopy was adequate. ASSESSMENT: HPV effect PLAN: Specimens labeled and sent to Pathology. Will notify patient of results in 1-2 weeks. Post-procedure instructions reviewed and written material given to the patient. If indicated, lesion by colpo is amenable to office LEEP as lesion is small. Miky Urbano MD [facility] 03-23-2023 Miscellaneous Notes Pt notified and appointment scheduled. Lizette Urban LPN ----- Message from Miky Urbano MD sent at 03/23/2023 10:03 AM EST ----- Please schedule colp. w/ me. Mychart message sent. documented in this encounter [facility] 03-09-2023 Note HNO ID: [id number] Author: Miky Urbano MD Service: ? Author Type: Physician Type: Progress Notes Filed: 03/09/2023 2:13 PM Note Text: Carlene is a 57 year old who presents for an annual gynecologic exam without complaints. Hot flashes improved Postmenopausal: yes HRT use: No. 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 History LMP: 12/09/2014, Postmenopausal Age at Menarche: Age at First : Age at Menopause: Press Assistant And Feeder History Comments: Sexual Activity: Yes; Male; ESSURE procedure Contraception: Surgical PAST MEDICAL HISTORY Diagnosis Date Arthritis of left hip 08/20/2015 Basosquamous carcinoma of skin Removed 08/2021-[facility] [place] [facility] Carpal tunnel syndrome Right Cervical high risk HPV (human papillomavirus) test positive 2018,2019,2020 Degenerative lumbar disc 08/20/2015 Esophageal reflux resolved Hyperlipidemia LDL goal <130 11/20/2004 Lumbago Better Lumbosacral radiculopathy at S1 12/26/2015 Other and unspecified hyperlipidemia Palpitations resolved Piriformis syndrome of left side 08/20/2015 Plantar fasciitis Snoring PAST SURGICAL HISTORY Procedure Laterality Date COLONOSCOPY FLX DX W/COLLJ SPEC WHEN PFRMD 07/16/2017 Colonoscopy - normal-10 year follow-up ESOPHAGOGASTRODUODENOSCOPY TRANSORAL DIAGNOSTIC 11/05/2017 EGD ESSURE Approx 2004 LAPAROSCOPY SURG CHOLECYSTECTOMY 12/01/2017 Cholecystectomy, lap PAST SURGICAL HISTORY OF Left 08/2021 Removal of basosquamous skin cancer from left shoulder RETROGRADE URETHROGRAM REVISE MEDIAN N/CARPAL TUNNEL SURG Right 11/2021 FAMILY HISTORY Problem Relation Age of Onset Thyroid Mother Osteoporosis Mother other (gerd) Mother Alcohol/Drug Father CIRRHOSIS Cancer Maternal Uncle Diabetes Paternal Grandmother Hypertension Paternal Grandmother Stroke Paternal Grandmother Diabetes Paternal Grandfather of [place] Diabetes Brother Alcohol/Drug Brother SOCIAL HISTORY Social History Tobacco Use Smoking status: Never Smokeless tobacco: Never Vaping Use Vaping Use: Never used Substance Use Topics Alcohol use: Yes Alcohol/week: 3.0 standard drinks of alcohol Types: 3 Glasses of wine per week Comment: Occasionally Drug use: No REVIEW OF SYSTEMS Abdomen: No abdominal pain, nausea, vomiting, diarrhea, or constipation. No bloating, early satiety, indigestion, or increased flatulence. Bladder: No dysuria, gross hematuria, urinary frequency, urinary urgency, or incontinence Breast: No breast lumps, nipple d/c, overlying skin changes, redness or skin retraction Allergies and current medication updated:Yes EXAM: BP 110/72 Ht 5' 2.5 (1.59m) Wt 159 lb (72.1kg) LMP 12/09/2014 BMI 28.60 kg/(m2). GENERAL: pleasant, female in no apparent distress HEENT: Normocephalic, atraumatic, mucus membranes moist, and no lesions NECK: Supple, full range of motion, no adenopathy, and thyroid normal DERMATOLOGY: Normal, without lesions, non-icteric, and non-hirsute BREAST: soft, non-tender, symmetric, no dominant mass, normal nipple-areolar complex, no lymphadenopathy, and no nipple discharge CHEST: Normal inspiratory effort ABDOMEN: soft, non-tender, and no masses PELVIC: external genitalia normal, normal Bartholin's glands, urethra, [place]'s glands, no vulvar lesions, no cervical lesions, good vaginal support, physiologic discharge present, normal appearing perineal body and perianal region BIMANUAL: uterus normal size, shape and consistency, no adnexal masses, and non-tender RECTOVAGINAL: deferred. NEURO: alert and oriented x3,exam grossly non-focal EXTREMITIES: normal ASSESSMENT/PLAN: 1) Health maintenance: Pap done with HPV. Mammogram ordered Colon cancer screening: up to date with screening 2) Follow up one year or sooner as needed Miky Urbano MD [facility] 03-09-2023 Note HNO ID: [id number] Author: Joe Vizcaino Mammo Tech Service: ? Author Type: Technologist Type: Progress Notes Filed: 03/09/2023 1:27 PM Note Text: Radiology Service Progress Note PATIENT NAME: Carlene Baltazar DATE OF SERVICE: March 09, 2023 TIME: 1:26 PM PATIENT IDENTITY VERIFICATION COMPLETED USING TWO (2) IDENTIFIERS: Name and Date of confirmed by patient verbally. FALL SCREENING: Has the patient had 2 falls in the last year or 1 fall with injury or currently using an Ambulatory Assistive Device (Walker, Cane, Wheelchair, Crutches, etc.)? No PATIENT GENDER DATA: Female. status: : No status: NO. PATIENT RELEVANT IMPLANT DATA REVIEWED: Not Applicable RADIOLOGY DEPARTMENT: Mammography PERIPHERAL IV DATA: Not applicable SIGNED BY: Joey Zamora March 09, 2023 1:26 PM [facility] documented in this encounter [facility]08-28-2023 NoteHNO ID: [id number] Author: Ramez Sanchez MD Service: ? Author Type: Physician Type: Progress Notes Filed: 12/14/2022 1:56 PM Note Text: Chief Complaint Patient presents with: Physical HPI Carlene Baltazar is a 57 year old female who presents here today for Above Complaints. Patient notes that she was evaluated for numbness/tingling all over her body back in June with normal blood work. States that she continues to get symptoms of a brief chill throughout her body and numbness/tingling in her hands and feet. History of carpal tunnel with surgery on right about a year ago. Has history of tarsal tunnel with surgery, but cannot remember how long ago. Denies slurred speech, vision changes, headache, weakness. Has been drinking plexus to help with weight loss for the last 8 months. Exercising 3-4 days per week with walking or use of elliptical. Does not follow specific diet and does not eat healthy typically. PHQ-2 / Depression screen He in the past two weeks denies having felt down, depressed, hopeless or with little interest or pleasure in doing things. Up to date on cancer screening. Refusing vaccinations today. Past medical history, appointments, medications, allergies reviewed. Previous Medical History PAST MEDICAL HISTORY Diagnosis Date Arthritis of left hip 08/20/2015 Cervical high risk HPV (human papillomavirus) test positive 2018,2019,2020 Degenerative lumbar disc 08/20/2015 Esophageal reflux resolved Hyperlipidemia LDL goal <130 11/20/2004 Lumbago Better Lumbosacral radiculopathy at S1 12/26/2015 Other and unspecified hyperlipidemia Palpitations resolved Piriformis syndrome of left side 08/20/2015 Plantar fasciitis Snoring Previous Surgical History PAST SURGICAL HISTORY Procedure Laterality Date COLONOSCOPY FLX DX W/COLLJ SPEC WHEN PFRMD 07/16/2017 Colonoscopy - normal-10 year follow-up ESOPHAGOGASTRODUODENOSCOPY TRANSORAL DIAGNOSTIC 11/05/2017 EGD ESSURE Approx 2004 LAPAROSCOPY SURG CHOLECYSTECTOMY 12/01/2017 Cholecystectomy, lap RETROGRADE URETHROGRAM Family History FAMILY HISTORY Problem Relation Age of Onset Thyroid Mother Osteoporosis Mother other (gerd) Mother Alcohol/Drug Father CIRRHOSIS Cancer Maternal Uncle Diabetes Paternal Grandmother Hypertension Paternal Grandmother Stroke Paternal Grandmother Diabetes Paternal Grandfather of [place] Diabetes Brother Alcohol/Drug Brother Patient Allergies ALLERGIES Allergen Reactions Doxycycline Erythromycin Macrobid [Nitrofura* GI Upset, Vomiting Ultram [Tramadol Hc* GI Upset Current Medications Current Outpatient Medications on File Prior to Visit Medication Sig omeprazole (PRILOSEC) 20 mg capsule TAKE 1 CAPSULE DAILY BEFOREBREAKFAST; 1/2 HOUR BEFORE A MEAL MULTI-VITAMIN TAB .QD No current facility-administered medications on file prior to visit. Social History Social History Tobacco Use Smoking status: Never Smokeless tobacco: Never Vaping Use Vaping Use: Never used Substance Use Topics Alcohol use: Yes Comment: Occasionally Drug use: No Review of Symptoms REVIEW OF SYSTEMS GENERAL: No weight loss, malaise or fevers HEENT: Negative for frequent or significant headaches, No changes in hearing or vision, no nose bleeds or other nasal problems NECK: Negative for lumps, goiter, pain and significant neck swelling RESPIRATORY: Negative for cough, hemoptysis, wheezing, COPD, dyspnea or shortness of breath CARDIOVASCULAR: Negative for chest pain, leg swelling, hypertension, CHF or palpitations GI: No nausea, vomiting, or diarrhea : No history of dysuria, frequency or incontinence 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: Negative for abnormal vaginal bleeding, abnormal vaginal discharge MUSCULOSKELETAL: Negative for joint pain or swelling, back pain or muscle pain SKIN: Negative for lesions, rash, and itching PSYCH: Negative for sleep disturbance, mood disorder and recent psychosocial stressors HEMATOLOGY/LYMPHOLOGY: Negative for prolonged bleeding, bruising easily or swollen nodes ENDOCRINE: Negative for cold or heat intolerance, polyuria, polydipsia and goiter NEURO: No history of headaches, syncope, paralysis, seizures or tremors EXAM: BP 112/76 Pulse 74 Resp 16 Wt 71.8 kg (158 lb 3.2 oz) LMP 12/09/2014 SpO2 100% BMI 28.47 kg/m? General Appearance: Well appearing, alert, in no acute distress, well-hydrated, well nourished.. Skin: Skin color, texture, turgor normal, no suspicious rashes or lesions. Head: Normocephalic, no masses, lesions, tenderness or abnormalities. Eyes: Anicteric sclera. Pupils are equally round and reactive to light. Extraocular movements are intact. . Ears: External ears normal, canals clear. Oropharynx: Lips, mucosa, and tongue normal, teeth and gums normal, oropharynx normal. Neck: Supple, no adenopathy; thyroid symmetric, normal size, no bruits. Lungs: Lungs clear to auscultation. No (more content not included)...[facility]08-28-2023 History of Present illness Narrative* Ramez Sanchez MD - 12/14/2022 9:48 AM EDT Chief Complaint Patient presents with: Physical HPI Carlene Baltazar is a 57 year old female who presents here today for Above Complaints. Patient notes that she was evaluated for numbness/tingling all over her body back in June with normal blood work. States that she continues to get symptoms of a brief chill throughout her body and numbness/tingling in her hands and feet. History of carpal tunnel with surgery on right about a year ago. Has history of tarsal tunnel with surgery, but cannot remember how long ago. Denies slurred speech, vision changes, headache, weakness. Has been drinking plexus to help with weight loss for the last 8 months. Exercising 3-4 days per week with walking or use of elliptical. Does not follow specific diet and does not eat healthy typically. PHQ-2 / Depression screen He in the past two weeks denies having felt down, depressed, hopeless or with little interest or pleasure in doing things. Up to date on cancer screening. Refusing vaccinations today. Past medical history, appointments, medications, allergies reviewed. Previous Medical History PAST MEDICAL HISTORY Diagnosis Date Arthritis of left hip 08/20/2015 Cervical high risk HPV (human papillomavirus) test positive 2018,2019,2020 Degenerative lumbar disc 08/20/2015 Esophageal reflux resolved Hyperlipidemia LDL goal <130 11/20/2004 Lumbago Better Lumbosacral radiculopathy at S1 12/26/2015 Other and unspecified hyperlipidemia Palpitations resolved Piriformis syndrome of left side 08/20/2015 Plantar fasciitis Snoring Previous Surgical History PAST SURGICAL HISTORY Procedure Laterality Date COLONOSCOPY FLX DX W/COLLJ SPEC WHEN PFRMD 07/16/2017 Colonoscopy - normal-10 year follow-up ESOPHAGOGASTRODUODENOSCOPY TRANSORAL DIAGNOSTIC 11/05/2017 EGD ESSURE Approx 2004 LAPAROSCOPY SURG CHOLECYSTECTOMY 12/01/2017 Cholecystectomy, lap RETROGRADE URETHROGRAM Family History FAMILY HISTORY Problem Relation Age of Onset Thyroid Mother Osteoporosis Mother other (gerd) Mother Alcohol/Drug Father CIRRHOSIS Cancer Maternal Uncle Diabetes Paternal Grandmother Hypertension Paternal Grandmother Stroke Paternal Grandmother Diabetes Paternal Grandfather of [place] Diabetes Brother Alcohol/Drug Brother Patient Allergies ALLERGIES Allergen Reactions Doxycycline Erythromycin Macrobid [Nitrofura* GI Upset, Vomiting Ultram [Tramadol Hc* GI Upset Current Medications Current Outpatient Medications on File Prior to Visit Medication Sig omeprazole (PRILOSEC) 20 mg capsule TAKE 1 CAPSULE DAILY BEFOREBREAKFAST; 1/2 HOUR BEFORE A MEAL MULTI-VITAMIN TAB .QD No current facility-administered medications on file prior to visit. Social History Social History Tobacco Use Smoking status: Never Smokeless tobacco: Never Vaping Use Vaping Use: Never used Substance Use Topics Alcohol use: Yes Comment: Occasionally Drug use: No Review of Symptoms REVIEW OF SYSTEMS GENERAL: No weight loss, malaise or fevers HEENT: Negative for frequent or significant headaches, No changes in hearing or vision, no nose bleeds or other nasal problems NECK: Negative for lumps, goiter, pain and significant neck swelling RESPIRATORY: Negative for cough, hemoptysis, wheezing, COPD, dyspnea or shortness of breath CARDIOVASCULAR: Negative for chest pain, leg swelling, hypertension, CHF or palpitations GI: No nausea, vomiting, or diarrhea : No history of dysuria, frequency or incontinence 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: Negative for abnormal vaginal bleeding, abnormal vaginal discharge MUSCULOSKELETAL: Negative for joint pain or swelling, back pain or muscle pain SKIN: Negative for lesions, rash, and itching PSYCH: Negative for sleep disturbance, mood disorder and recent psychosocial stressors HEMATOLOGY/LYMPHOLOGY: Negative for prolonged bleeding, bruising easily or swollen nodes ENDOCRINE: Negative for cold or heat intolerance, polyuria, polydipsia and goiter NEURO: No history of headaches, syncope, paralysis, seizures or tremors EXAM: BP 112/76 Pulse 74 Resp 16 Wt 71.8 kg (158 lb 3.2 oz) LMP 12/09/2014 SpO2 100% BMI 28.47 kg/m General Appearance: Well appearing, alert, in no acute distress, well-hydrated, well nourished.. Skin: Skin color, texture, turgor normal, no suspicious rashes or lesions. Head: Normocephalic, no masses, lesions, tenderness or abnormalities. Eyes: Anicteric sclera. Pupils are equally round and reactive to light. Extraocular movements are intact. . Ears: External ears normal, canals clear. Oropharynx: Lips, mucosa, and tongue normal, teeth and gums normal, oropharynx normal. Neck: Supple, no adenopathy; thyroid symmetric, normal size, no bruits. Lungs: Lungs clear to auscultation. No wheezing, rhonchi, rales.. Heart: RRR without murmur, gallop, or rubs. No ectopy. Abdomen: Normal abdominal exam, Abdomen soft, non-tender. Bowel sounds normal. No masses, organomegaly. Extremities: No deformities, edema, skin discoloration, clubbing or cyanosis. Good capillary refill. . Musculoskeletal: No joint swelling, deformity, or tenderness, 5/5 director graphics strength bilaterally. Peripheral Pulses: Pulses: radial=4/4,dorsalis pedis=4/4, posterior tibial=4/4. Lymph Nodes: No cervical lymphadenopathy and No supraclavicular lymphadenopathy. Feet: Shoes and socks removed, No deformities, ulcers, calluses, normal distal pulses, and sensitive to 10 gm monofilament Health Maintenance List HEPATITIS B(1 of 3 - 3-dose series) Never done COVID-19 VACCINE(1) Never done HEPATITIS C SCREENING Never done HIV SCREENING Never done SHINGRIX VACCINE(1 of 2) Never done DEPRESSION ASSESSMENT Never done MAMMOGRAM due on 03/05/2023 INFLUENZA(1) due on 12/18/2022 DIABETES SCREEN due on 06/19/2025 LIPID SCREEN due on 04/14/2026 PAP TESTING due on 03/03/2027 HPV TESTING due on 03/03/2027 COLORECTAL CANCER SCREENING due on 07/17/2027 DTAP,TDAP,TD(2 - Td or Tdap) due on 09/28/2027 ASSESSMENT/PLAN: 1. Annual physical exam - ICD9: V70.0, ICD10: Z00.00 (primary diagnosis) - Counseled on healthy diet and regular exercise - Calcium intake with supplements or by diet of 1000 mg/day for under 50, 1200- 1500 mg/day for 50+ - Depression screening tool completed and reviewed with patient. Based on score and interview, patient is not at risk for depression and recommended no further intervention at this time. - Follow up for annual exam in one year - CBC + DIFF - COMP METABOLIC PANEL - LIPID PANEL, NONFASTING - HGB A1C - DEPRESSION SCREENING/ASSESSMENT - TSH BLD 2. Neuropathy - ICD9: 355.9, ICD10: G62.9 Previous workup negative. Discussed symptoms are remnants of carpal tunnel and tarsal tunnel and should follow back up with surgeons if symptoms persist or worsen. Red flags for re-assessment reviewed with patient in detail. 3. Carpal tunnel syndrome, bilateral - ICD9: 354.0, ICD10: G56.03 See above. 4. Gastroesophageal reflux disease without esophagitis - ICD9: 530.81, ICD10: K21.9 - Discussed lifestyle modifications including losing weight, limiting caffeine, and no meals three hours before sleep 5. Overweight with body mass index (BMI) of 28 to 28.9 in adult - ICD9: 278.02, V85.24, ICD10: E66.3, Z68.28 Weight increasing - Behavioral intervention - Recommended stopping plexus if not helping with weight loss after 8 months. 6. Special screening examination for viral disease - ICD9: V73.99, ICD10: Z11.59 - HEPATITIS C ANTIBODY IA WITH CONFIRMATION 7. Screening for HIV (human immunodeficiency virus) - ICD9: V73.89, ICD10: Z11.4 - HIV 1 2 COMBO(AG/AB),WITH REFLEX TO DIFFERENTIATION Ramez Sanchez MD documented in this encounterOhio[facility] Miscellaneous Notes* Telephone Encounter - Rebekah Garrett - 10/29/2022 8:40 AM EDT Patient has been identified by name and date of : Yes Requested Prescriptions Pending Prescriptions Disp Refills omeprazole (PRILOSEC) 20 mg capsule 90 capsule 1 Sig: TAKE 1 CAPSULE DAILY BEFOREBREAKFAST; 1/2 HOUR BEFORE A MEAL ARABELLA-10/13/22 Labs-06/19/22 NOV-12/14/22 RX INSTRUCTIONS: Patient aware RX will be sent to pharmacy. No need to notify patient. Rebekah Jimenez documented in this encounterOhiohealth [facility]06-27-2023 NoteHNO ID: [id number] Author: Ramez Sanchez MD Service: ? Author Type: Physician Type: Progress Notes Filed: 10/13/2022 11:49 AM Note Text: Chief Complaint Patient presents with: Follow Up: Patient seen in 10/02/22 and treated for UTI. Completed ATB and reports yeast infection. Wanting to see if UTI gone due to still having back pain. HPI Carlene Baltazar is a 57 year old female who presents here today for Above Complaints.. Evaluated at on 10/02 for complaint of urinary frequency with following HPI: Symptoms since yesterday. Dysuria: Yes Frequency: Yes Hematuria: No Nausea: No Fever or chills: chills. Has had nasal congestion, sinus pressure, and sore throat yesterday. Back pain: bilateral lumbar Abdominal pain: No Prior UTI: Yes Personal history of kidney stones: No Family history of kidney stones: No UA at that time was positive for WBC and hemoglobin and was started on Keflex. Urine culture negative for infection. Patient states that she completed 5 days of Keflex and urinary symptoms have resolved. States that she has developed vaginal itching and thinks that she may have yeast infection. Denies vaginal discharge or foul odor, fever/chills, nausea, vomiting, abdominal pain. No new sexual partners. Not taking anything OTC for these symptoms. Past medical history, appointments, medications, allergies reviewed. Previous Medical History PAST MEDICAL HISTORY Diagnosis Date Arthritis of left hip 08/20/2015 Cervical high risk HPV (human papillomavirus) test positive 2018,2019,2020 Degenerative lumbar disc 08/20/2015 Esophageal reflux resolved Hyperlipidemia LDL goal <130 11/20/2004 Lumbago Better Lumbosacral radiculopathy at S1 12/26/2015 Other and unspecified hyperlipidemia Palpitations resolved Piriformis syndrome of left side 08/20/2015 Snoring Previous Surgical History PAST SURGICAL HISTORY Procedure Laterality Date COLONOSCOPY FLX DX W/COLLJ SPEC WHEN PFRMD 07/16/2017 Colonoscopy - normal-10 year follow-up ESOPHAGOGASTRODUODENOSCOPY TRANSORAL DIAGNOSTIC 11/05/2017 EGD ESSURE Approx 2004 LAPAROSCOPY SURG CHOLECYSTECTOMY 12/01/2017 Cholecystectomy, lap RETROGRADE URETHROGRAM Family History FAMILY HISTORY Problem Relation Age of Onset Thyroid Mother Osteoporosis Mother other (gerd) Mother Alcohol/Drug Father CIRRHOSIS Cancer Maternal Uncle Diabetes Paternal Grandmother Hypertension Paternal Grandmother Stroke Paternal Grandmother Diabetes Paternal Grandfather of [place] Diabetes Brother Alcohol/Drug Brother Patient Allergies ALLERGIES Allergen Reactions Doxycycline Erythromycin Macrobid [Nitrofura* GI Upset, Vomiting Ultram [Tramadol Hc* GI Upset Current Medications Current Outpatient Medications on File Prior to Visit Medication Sig olopatadine (PATANOL) 0.1 % ophthalmic solution Use 1 Drop in both eyes twice daily. omeprazole (PRILOSEC) 20 mg capsule TAKE 1 CAPSULE DAILY BEFOREBREAKFAST; 1/2 HOUR BEFORE A MEAL MULTI-VITAMIN TAB .QD No current facility-administered medications on file prior to visit. Social History Social History Tobacco Use Smoking status: Never Smokeless tobacco: Never Vaping Use Vaping Use: Never used Substance Use Topics Alcohol use: Yes Comment: Occasionally Drug use: No Review of Symptoms REVIEW OF SYSTEMS See HPI EXAM: BP 110/70 Pulse 66 Temp 36.4 ?C (97.6 ?F) Resp 16 LMP 12/09/2014 SpO2 98% General Appearance: Well appearing, alert, in no acute distress, well-hydrated, well nourished.. Skin: Skin color, texture, turgor normal, no suspicious rashes or lesions. Abdomen: Normal abdominal exam, Abdomen soft, non-tender. Bowel sounds normal. No masses, organomegaly, Negative CVA tenderness. Health Maintenance List HEPATITIS B(1 of 3 - 3-dose series) Never done COVID-19 VACCINE(1) Never done HEPATITIS C SCREENING Never done HIV SCREENING Never done SHINGRIX VACCINE(1 of 2) Never done DEPRESSION ASSESSMENT Never done MAMMOGRAM due on 03/05/2023 DIABETES SCREEN due on 06/19/2025 LIPID SCREEN due on 04/14/2026 PAP TESTING due on 03/03/2027 HPV TESTING due on 03/03/2027 COLORECTAL CANCER SCREENING due on 07/17/2027 DTAP,TDAP,TD(2 - Td or Tdap) due on 09/28/2027 INFLUENZA Completed Data reviewed Component Latest Ref Rng AND Units 10/13/2022 GLUCOSE UA (POCT) Negative mg/dL Negative BILIRUBIN UA (POCT) Negative Negative KETONE UA (POCT) Negative mg/dL Negative SPECIFIC GRAVITY UA (POCT) 1.005 - 1.030 1.015 HEMOGLOBIN/BLOOD UA (POCT) Negative Negative PH UA (POCT) 4.5 - 8.0 6.5 PROTEIN UA (POCT) Negative mg/dL Negative UROBILINOGEN UA (POCT) Normal E.U./dL 0.2 NITRITE UA (POCT) Negative Negative LEUKOCYTES UA (POCT) Negative Negative COLOR UA (POCT) Yellow CLARITY UA (POCT) Clear ASSESSMENT/PLAN: 1. Dysuria - ICD9: 788.1, ICD10: R30.0 (primary diagnosis) Resolved with abx. Repea (more content not included)...[facility]06-27-2023 History of Present illness Narrative* Ramez Sanchez MD - 10/13/2022 10:34 AM EDT Chief Complaint Patient presents with: Follow Up: Patient seen in 10/02/22 and treated for UTI. Completed ATB and reports yeast infection. Wanting to see if UTI gone due to still having back pain. HPI Carlene Baltazar is a 57 year old female who presents here today for Above Complaints.. Evaluated at on 10/02 for complaint of urinary frequency with following HPI: Symptoms since yesterday. Dysuria: Yes Frequency: Yes Hematuria: No Nausea: No Fever or chills: chills. Has had nasal congestion, sinus pressure, and sore throat yesterday. Back pain: bilateral lumbar Abdominal pain: No Prior UTI: Yes Personal history of kidney stones: No Family history of kidney stones: No UA at that time was positive for WBC and hemoglobin and was started on Keflex. Urine culture negative for infection. Patient states that she completed 5 days of Keflex and urinary symptoms have resolved. States that she has developed vaginal itching and thinks that she may have yeast infection. Denies vaginal discharge or foul odor, fever/chills, nausea, vomiting, abdominal pain. No new sexual partners. Not taking anything OTC for these symptoms. Past medical history, appointments, medications, allergies reviewed. Previous Medical History PAST MEDICAL HISTORY Diagnosis Date Arthritis of left hip 08/20/2015 Cervical high risk HPV (human papillomavirus) test positive 2018,2019,2020 Degenerative lumbar disc 08/20/2015 Esophageal reflux resolved Hyperlipidemia LDL goal <130 11/20/2004 Lumbago Better Lumbosacral radiculopathy at S1 12/26/2015 Other and unspecified hyperlipidemia Palpitations resolved Piriformis syndrome of left side 08/20/2015 Snoring Previous Surgical History PAST SURGICAL HISTORY Procedure Laterality Date COLONOSCOPY FLX DX W/COLLJ SPEC WHEN PFRMD 07/16/2017 Colonoscopy - normal-10 year follow-up ESOPHAGOGASTRODUODENOSCOPY TRANSORAL DIAGNOSTIC 11/05/2017 EGD ESSURE Approx 2004 LAPAROSCOPY SURG CHOLECYSTECTOMY 12/01/2017 Cholecystectomy, lap RETROGRADE URETHROGRAM Family History FAMILY HISTORY Problem Relation Age of Onset Thyroid Mother Osteoporosis Mother other (gerd) Mother Alcohol/Drug Father CIRRHOSIS Cancer Maternal Uncle Diabetes Paternal Grandmother Hypertension Paternal Grandmother Stroke Paternal Grandmother Diabetes Paternal Grandfather of [place] Diabetes Brother Alcohol/Drug Brother Patient Allergies ALLERGIES Allergen Reactions Doxycycline Erythromycin Macrobid [Nitrofura* GI Upset, Vomiting Ultram [Tramadol Hc* GI Upset Current Medications Current Outpatient Medications on File Prior to Visit Medication Sig olopatadine (PATANOL) 0.1 % ophthalmic solution Use 1 Drop in both eyes twice daily. omeprazole (PRILOSEC) 20 mg capsule TAKE 1 CAPSULE DAILY BEFOREBREAKFAST; 1/2 HOUR BEFORE A MEAL MULTI-VITAMIN TAB .QD No current facility-administered medications on file prior to visit. Social History Social History Tobacco Use Smoking status: Never Smokeless tobacco: Never Vaping Use Vaping Use: Never used Substance Use Topics Alcohol use: Yes Comment: Occasionally Drug use: No Review of Symptoms REVIEW OF SYSTEMS See HPI EXAM: BP 110/70 Pulse 66 Temp 36.4 C (97.6 F) Resp 16 LMP 12/09/2014 SpO2 98% General Appearance: Well appearing, alert, in no acute distress, well-hydrated, well nourished.. Skin: Skin color, texture, turgor normal, no suspicious rashes or lesions. Abdomen: Normal abdominal exam, Abdomen soft, non-tender. Bowel sounds normal. No masses, organomegaly, Negative CVA tenderness. Health Maintenance List HEPATITIS B(1 of 3 - 3-dose series) Never done COVID-19 VACCINE(1) Never done HEPATITIS C SCREENING Never done HIV SCREENING Never done SHINGRIX VACCINE(1 of 2) Never done DEPRESSION ASSESSMENT Never done MAMMOGRAM due on 03/05/2023 DIABETES SCREEN due on 06/19/2025 LIPID SCREEN due on 04/14/2026 PAP TESTING due on 03/03/2027 HPV TESTING due on 03/03/2027 COLORECTAL CANCER SCREENING due on 07/17/2027 DTAP,TDAP,TD(2 - Td or Tdap) due on 09/28/2027 INFLUENZA Completed Data reviewed Component Latest Ref Rng & Units 10/13/2022 GLUCOSE UA (POCT) Negative mg/dL Negative BILIRUBIN UA (POCT) Negative Negative KETONE UA (POCT) Negative mg/dL Negative SPECIFIC GRAVITY UA (POCT) 1.005 - 1.030 1.015 HEMOGLOBIN/BLOOD UA (POCT) Negative Negative PH UA (POCT) 4.5 - 8.0 6.5 PROTEIN UA (POCT) Negative mg/dL Negative UROBILINOGEN UA (POCT) Normal E.U./dL 0.2 NITRITE UA (POCT) Negative Negative LEUKOCYTES UA (POCT) Negative Negative COLOR UA (POCT) Yellow CLARITY UA (POCT) Clear ASSESSMENT/PLAN: 1. Dysuria - ICD9: 788.1, ICD10: R30.0 (primary diagnosis) Resolved with abx. Repeat UA negative/normal. Discussed pushing PO fluids to prevent UTI. Call if symptoms return. - UA DIP, URINE (POC) 2. Vaginal irritation - ICD9: 623.9, ICD10: N89.8 Will treat possible vaginal yeast infection with up to 3 doses of diflucan. Call if not improving in 2 days and will call in additional rx if first dose does not resolve her symptoms. Ramez Sanchez MD documented in this encounterOhio[facility]06-26-2023 Miscellaneous Notes* Telephone Encounter - Ziggy Jiang RN - 10/12/2022 4:35 PM EDT Phoned patient and given provider's message below with verbalized understanding. Scheduled appt. * Telephone Encounter - Ramez Sanchez MD - 10/12/2022 2:02 PM EDT Recommend OV to address. I have openings today if she would like * Telephone Encounter - Angelic Nickerson RN - 10/12/2022 1:40 PM EDT Patient calling to ask Dr. Sanchez to advise. Pt states she was seen in (10/02/22) and was prescribed cephalexin for 5 days for treatment of probable UTI. Her urine culture revealed insignificant bacterial growth, however was advised that if her symptoms were improving, to continue the antibiotics, which she has completed. She was also advised to follow up with Dr. Sanchez to ensure that the blood in her urine has resolved. Pt reports her lumbar discomfort continues but states it may not be urinary related because she hasa history of low back pain at times. She is also experiencing vaginal itching and irritation. Pt asking if she needs to make a F/U appt or if any orders or treatment can be ordered and she can be advised by phone? Please advise. Thank you. documented in this encounterOhiohealth [facility]06-16-2023 NoteHNO ID: [id number] Author: Reji Lafleur MD Service: ? Author Type: Physician Type: Progress Notes Filed: 10/02/2022 3:49 PM Note Text: Patient presents with: Urinary Frequency: With low back pain x1 day HPI: Symptoms since yesterday. Dysuria: Yes Frequency: Yes Hematuria: No Nausea: No Fever or chills: chills. Has had nasal congestion, sinus pressure, and sore throat yesterday. Back pain: bilateral lumbar Abdominal pain: No Prior UTI: Yes Personal history of kidney stones: No Family history of kidney stones: No MEDICATIONS: Current Outpatient Medications Medication Sig olopatadine (PATANOL) 0.1 % ophthalmic solution Use 1 Drop in both eyes twice daily. omeprazole (PRILOSEC) 20 mg capsule TAKE 1 CAPSULE DAILY BEFOREBREAKFAST; 1/2 HOUR BEFORE A MEAL MULTI-VITAMIN TAB .QD No current facility-administered medications for this visit. ALLERGIES: ALLERGIES Allergen Reactions Doxycycline Erythromycin Macrobid [Nitrofura* GI Upset, Vomiting Ultram [Tramadol Hc* GI Upset VITALS: BP 130/94 Pulse 92 Temp 37.6 ?C (99.7 ?F) Resp 18 Wt 70.6 kg (155 lb 9.6 oz) LMP 12/09/2014 SpO2 98% BMI 28.01 kg/m? PHYSICAL EXAM: GEN: NAD HEENT: EOMI, conjunctiva clear, HEART: regular rate and rhythm, no murmurs LUNGS: clear to auscultation, no wheezes or crackles, no increased WOB ABDOMEN: Soft, nondistended, no masses, no suprapubic pressure BACK: No CVA tenderness ASSESSMENT/PLAN: 1. Urinary frequency - ICD9: 788.41, ICD10: R35.0 - UA positive for moderate kasie esterase and blood -probable UTI. - UA DIP, URINE (POC) - URINE CULTURE - CEPHALEXIN 500 MG CAPSULE Allergies versus viral URI also. Continue allergy medication. Reji Lafleur [facility]06-16-2023 History of Present illness Narrative* Reji Lafleur MD - 10/02/2022 3:40 PM EDT Patient presents with: Urinary Frequency: With low back pain x1 day HPI: Symptoms since yesterday. Dysuria: Yes Frequency: Yes Hematuria: No Nausea: No Fever or chills: chills. Has had nasal congestion, sinus pressure, and sore throat yesterday. Back pain: bilateral lumbar Abdominal pain: No Prior UTI: Yes Personal history of kidney stones: No Family history of kidney stones: No MEDICATIONS: Current Outpatient Medications Medication Sig olopatadine (PATANOL) 0.1 % ophthalmic solution Use 1 Drop in both eyes twice daily. omeprazole (PRILOSEC) 20 mg capsule TAKE 1 CAPSULE DAILY BEFOREBREAKFAST; 1/2 HOUR BEFORE A MEAL MULTI-VITAMIN TAB .QD No current facility-administered medications for this visit. ALLERGIES: ALLERGIES Allergen Reactions Doxycycline Erythromycin Macrobid [Nitrofura* GI Upset, Vomiting Ultram [Tramadol Hc* GI Upset VITALS: BP 130/94 Pulse 92 Temp 37.6 C (99.7 F) Resp 18 Wt 70.6 kg (155 lb 9.6 oz) LMP 12/09/2014 SpO2 98% BMI 28.01 kg/m PHYSICAL EXAM: GEN: NAD HEENT: EOMI, conjunctiva clear, HEART: regular rate and rhythm, no murmurs LUNGS: clear to auscultation, no wheezes or crackles, no increased WOB ABDOMEN: Soft, nondistended, no masses, no suprapubic pressure BACK: No CVA tenderness ASSESSMENT/PLAN: 1. Urinary frequency - ICD9: 788.41, ICD10: R35.0 - UA positive for moderate kasie esterase and blood -probable UTI. - UA DIP, URINE (POC) - URINE CULTURE - CEPHALEXIN 500 MG CAPSULE Allergies versus viral URI also. Continue allergy medication. Reji Lafleur MD documented in this encounterOhiohealth Marion [facility] Hospital06-05-2023 NoteHNO ID: [id number] Author: Maggi Taveras APRN.SIMONIZER Service: ? Author Type: Nurse Practitioner Type: Progress Notes Filed: 09/21/2022 2:42 PM Note Text: Subjective Cough Associated symptoms include sore throat. Pertinent negatives include no chills, no ear pain, no headaches and no myalgias. Carlene Baltazar is a 57 year old female who presents with a cough, sore throat and fatigue since yesterday. She returned from a trip to [place] yesterday and was on planes and in airports. She has not had any known sick contacts. She has not had a fever. She has not taken any medication for her symptoms. Review of Systems Constitutional: Positive for malaise/fatigue. Negative for chills and fever. HENT: Positive for sore throat. Negative for congestion and ear pain. Respiratory: Positive for cough. Cardiovascular: Negative. Musculoskeletal: Negative for myalgias. Neurological: Negative for headaches. BP 122/72 Pulse 80 Temp 36.1 ?C (96.9 ?F) Resp 16 Wt 71.7 kg (158 lb) LMP 12/09/2014 SpO2 95% BMI 28.44 kg/m? PAST MEDICAL HISTORY Diagnosis Date Arthritis of left hip 08/20/2015 Cervical high risk HPV (human papillomavirus) test positive 2018,2019,2020 Degenerative lumbar disc 08/20/2015 Esophageal reflux resolved Hyperlipidemia LDL goal <130 11/20/2004 Lumbago Better Lumbosacral radiculopathy at S1 12/26/2015 Other and unspecified hyperlipidemia Palpitations resolved Piriformis syndrome of left side 08/20/2015 Snoring PAST SURGICAL HISTORY Procedure Laterality Date COLONOSCOPY FLX DX W/COLLJ SPEC WHEN PFRMD 07/16/2017 Colonoscopy - normal-10 year follow-up ESOPHAGOGASTRODUODENOSCOPY TRANSORAL DIAGNOSTIC 11/05/2017 EGD ESSURE Approx 2004 LAPAROSCOPY SURG CHOLECYSTECTOMY 12/01/2017 Cholecystectomy, lap RETROGRADE URETHROGRAM ALLERGIES Doxycycline, Erythromycin, Macrobid [Nitrofurantoin Monohyd/M-Cryst], and Ultram [Tramadol Hcl] MEDICATIONS olopatadine (PATANOL) 0.1 % ophthalmic solution Use 1 Drop in both eyes twice daily. omeprazole (PRILOSEC) 20 mg capsule TAKE 1 CAPSULE DAILY BEFOREBREAKFAST; 1/2 HOUR BEFORE A MEAL MULTI-VITAMIN TAB .QD FAMILY HISTORY Problem Relation Age of Onset Thyroid Mother Osteoporosis Mother other (gerd) Mother Alcohol/Drug Father CIRRHOSIS Cancer Maternal Uncle Diabetes Paternal Grandmother Hypertension Paternal Grandmother Stroke Paternal Grandmother Diabetes Paternal Grandfather of [place] Diabetes Brother Alcohol/Drug Brother Social History Tobacco Use Smoking status: Never Smokeless tobacco: Never Vaping Use Vaping Use: Never used Substance Use Topics Alcohol use: Yes Comment: Occasionally Drug use: No Objective Physical Exam Vitals and nursing note reviewed. Constitutional: General: She is not in acute distress. Appearance: Normal appearance. She is not ill-appearing. HENT: Right Ear: Tympanic membrane, ear canal and external ear normal. Left Ear: Tympanic membrane, ear canal and external ear normal. Nose: Nose normal. Mouth/Throat: Mouth: Mucous membranes are moist. Pharynx: Uvula midline. Posterior oropharyngeal erythema present. No oropharyngeal exudate. Cardiovascular: Rate and Rhythm: Normal rate and regular rhythm. Heart sounds: Normal heart sounds. Pulmonary: Effort: Pulmonary effort is normal. No respiratory distress. Breath sounds: Normal breath sounds. No wheezing or rales. Musculoskeletal: Cervical back: Neck supple. Lymphadenopathy: Cervical: No cervical adenopathy. Skin: General: Skin is warm and dry. Findings: No erythema or rash. Neurological: Mental Status: She is alert. ASSESSMENT/PLAN: 1. Sore throat - ICD9: 462, ICD10: J02.9 (primary diagnosis) - suspect viral - Alere Strep Test negative, no culture pending - Discussed supportive care treatment with fluids, rest and analgesia. - STREP A MOLECULAR (POC) 2. Viral URI with cough - ICD9: 465.9, ICD10: J06.9 - Discussed viral etiology and rationale for treatment. - Symptomatic treatment with prn analgesia - Supportive care with fluids and rest - COVID WITH FLUA+B, ROUTINE - Follow-up with your PCP in 3-5 days if symptoms have not improved or sooner if symptoms worsen - Discussed red flags and need for immediate medical evaluation if any occur. - Discussed supportive care treatment with fluids, rest and analgesia. - Discussed expected course of illness Maggi Taveras APRN.CNPAdams County Hospital06-05-2023 Instructions* Patient Instructions* Maggi Taveras APRN.CNP - 09/21/2022 2:07 PM EDT ASSESSMENT/PLAN: 1. Sore throat - ICD9: 462, ICD10: J02.9 (primary diagnosis) - suspect viral - Alere Strep Test negative, no culture pending - Discussed supportive care treatment with fluids, rest and analgesia. - STREP A MOLECULAR (POC) 2. Viral URI with cough - ICD9: 465.9, ICD10: J06.9 - Discussed viral etiology and rationale for treatment. - Symptomatic treatment with prn analgesia - Supportive care with fluids and rest - COVID WITH FLUA+B, ROUTINE - Follow-up with your PCP in 3-5 days if symptoms have not improved or sooner if symptoms worsen - Discussed red flags and need for immediate medical evaluation if any occur. - Discussed supportive care treatment with fluids, rest and analgesia. - Discussed expected course of illness Maggi Taveras APRN.CNP Treatment for Viral Upper Respiratory Tract Infections Your body will kill off the virus by itself. Additionally, you can prime your body's immune system.This may help you get better more quickly. Drink lots of fluids Make sure you are eating well Get plenty of rest We do not have any medications that kill off these viruses. Antibiotics are used to treat bacterialinfections; however, they are not active against viral infections. There are some things that mighthelp you feel better, though. Vaporizers, humidifiers, hot showers, and hot fluids help open respiratory and sinus passages [place] Nasal [place] may offer relief of nasal and head congestion Trevor's Vapor Rub may relieve congestion Tylenol and Advil help control fevers and headaches Salt water gargles help relieve sore throats Chloraceptic spray or throat lozenges may also help relieve sore throat symptoms Occasionally, viral infections turn into something more serious. You should see your doctor or return to the Urgent Care if: You have fevers for longer than five days You have fevers above 102 degrees You are still sick after 10 days You have shortness of breath or wheezing After several days you are getting worse rather than better documented in this encounterOhiohealth [facility]06-05-2023 History of Present illness Narrative* Maggi Taveras APRN.CHADWICK - 09/21/2022 2:06 PM EDT Subjective Cough Associated symptoms include sore throat. Pertinent negatives include no chills, no ear pain, no headaches and no myalgias. Carlene Baltazar is a 57 year old female who presents with a cough, sore throat and fatigue since yesterday. She returned from a trip to [place] yesterday and [place] and[employer] [place]. She has not had any known sick contacts. She has not had a fever. She has not taken any medication for her symptoms. Review of Systems Constitutional: Positive for malaise/fatigue. Negative for chills and fever. HENT: Positive for sore throat. Negative for congestion and ear pain. Respiratory: Positive for cough. Cardiovascular: Negative. Musculoskeletal: Negative for myalgias. Neurological: Negative for headaches. BP 122/72 Pulse 80 Temp 36.1 C (96.9 F) Resp 16 Wt 71.7 kg (158 lb) LMP 12/09/2014 CcO506% BMI 28.44 kg/m PAST MEDICAL HISTORY Diagnosis Date Arthritis of left hip 08/20/2015 Cervical high risk HPV (human papillomavirus) test positive 2018,2019,2020 Degenerative lumbar disc 08/20/2015 Esophageal reflux resolved Hyperlipidemia LDL goal <130 11/20/2004 Lumbago Better Lumbosacral radiculopathy at S1 12/26/2015 Other and unspecified hyperlipidemia Palpitations resolved Piriformis syndrome of left side 08/20/2015 Snoring PAST SURGICAL HISTORY Procedure Laterality Date COLONOSCOPY FLX DX W/COLLJ SPEC WHEN PFRMD 07/16/2017 Colonoscopy - normal-10 year follow-up ESOPHAGOGASTRODUODENOSCOPY TRANSORAL DIAGNOSTIC 11/05/2017 EGD ESSURE Approx 2004 LAPAROSCOPY SURG CHOLECYSTECTOMY 12/01/2017 Cholecystectomy, lap RETROGRADE URETHROGRAM ALLERGIES Doxycycline, Erythromycin, Macrobid [Nitrofurantoin Monohyd/M-Cryst], and Ultram [Tramadol Hcl] MEDICATIONS olopatadine (PATANOL) 0.1 % ophthalmic solution Use 1 Drop in both eyes twice daily. omeprazole (PRILOSEC) 20 mg capsule TAKE 1 CAPSULE DAILY BEFOREBREAKFAST; 1/2 HOUR BEFORE A MEAL MULTI-VITAMIN TAB .QD FAMILY HISTORY Problem Relation Age of Onset Thyroid Mother Osteoporosis Mother other (gerd) Mother Alcohol/Drug Father CIRRHOSIS Cancer Maternal Uncle Diabetes Paternal Grandmother Hypertension Paternal Grandmother Stroke Paternal Grandmother Diabetes Paternal Grandfather of [place] Diabetes Brother Alcohol/Drug Brother Social History Tobacco Use Smoking status: Never Smokeless tobacco: Never Vaping Use Vaping Use: Never used Substance Use Topics Alcohol use: Yes Comment: Occasionally Drug use: No Objective Physical Exam Vitals and nursing note reviewed. Constitutional: General: She is not in acute distress. Appearance: Normal appearance. She is not ill-appearing. HENT: Right Ear: Tympanic membrane, ear canal and external ear normal. Left Ear: Tympanic membrane, ear canal and external ear normal. Nose: Nose normal. Mouth/Throat: Mouth: Mucous membranes are moist. Pharynx: Uvula midline. Posterior oropharyngeal erythema present. No oropharyngeal exudate. Cardiovascular: Rate and Rhythm: Normal rate and regular rhythm. Heart sounds: Normal heart sounds. Pulmonary: Effort: Pulmonary effort is normal. No respiratory distress. Breath sounds: Normal breath sounds. No wheezing or rales. Musculoskeletal: Cervical back: Neck supple. Lymphadenopathy: Cervical: No cervical adenopathy. Skin: General: Skin is warm and dry. Findings: No erythema or rash. Neurological: Mental Status: She is alert. ASSESSMENT/PLAN: 1. Sore throat - ICD9: 462, ICD10: J02.9 (primary diagnosis) - suspect viral - Alere Strep Test negative, no culture pending - Discussed supportive care treatment with fluids, rest and analgesia. - STREP A MOLECULAR (POC) 2. Viral URI with cough - ICD9: 465.9, ICD10: J06.9 - Discussed viral etiology and rationale for treatment. - Symptomatic treatment with prn analgesia - Supportive care with fluids and rest - COVID WITH FLUA+B, ROUTINE - Follow-up with your PCP in 3-5 days if symptoms have not improved or sooner if symptoms worsen - Discussed red flags and need for immediate medical evaluation if any occur. - Discussed supportive care treatment with fluids, rest and analgesia. - Discussed expected course of illness Maggi Taveras APRN.CNP documented in this encounterOhiohealth [facility]-08-[facility]23 NoteHNO ID: [id number] Author: Cynthia Rubio APRN.CNP Service: ? Author Type: Nurse Practitioner Type: Progress Notes Filed: 08/24/2022 8:16 AM Note Text: 08/24/2022 Patient presents with: Weight loss Allergies: Has had for 2 weeks and is currently taking zyzol SUBJECTIVE: This is a 57 year old that is here today for Above Complaints. Allergies: For the past two weeks has had allergy symptoms of sneezing, runny nose, watery/itchy eyes. Zyzol OTC works some what but wears off. Not using any other OTC meds. Reports used to get allergy shots but that was some time ago Reports gaining weight. Has been doing intermittent fasting,. Quit her job but has remained active. Works out about 4 days a week. Does treadmill and ellipictal PAST MEDICAL HISTORY Diagnosis Date Arthritis of left hip 08/20/2015 Cervical high risk HPV (human papillomavirus) test positive 2018,2019,2020 Degenerative lumbar disc 08/20/2015 Esophageal reflux resolved Hyperlipidemia LDL goal <130 11/20/2004 Lumbago Better Lumbosacral radiculopathy at S1 12/26/2015 Other and unspecified hyperlipidemia Palpitations resolved Piriformis syndrome of left side 08/20/2015 Snoring ALLERGIES Doxycycline, Erythromycin, Macrobid [Nitrofurantoin Monohyd/M-Cryst], and Ultram [Tramadol Hcl] MEDICATIONS Current Outpatient Medications Medication Sig omeprazole (PRILOSEC) 20 mg capsule TAKE 1 CAPSULE DAILY BEFOREBREAKFAST; 1/2 HOUR BEFORE A MEAL MULTI-VITAMIN TAB .QD No current facility-administered medications for this visit. Medications and allergies reviewed by this provider. SOCIAL HISTORY Social History Tobacco Use Smoking status: Never Smokeless tobacco: Never Vaping Use Vaping Use: Never used Substance Use Topics Alcohol use: Yes Comment: Occasionally Drug use: No REVIEW OF SYSTEMS All other reviewed and negative other than HPI. OBJECTIVE: BP 122/84 Pulse 75 Resp 18 Wt 71.2 kg (157 lb) LMP 12/09/2014 SpO2 98% BMI 28.26 kg/m? . Vital signs reviewed by this provider. APPEARANCE Well appearing, alert, in no acute distress, well-hydrated, well nourished. EYES: Mild puffiness to under eyes. Clear drainage observed HEPATITIS B(1 of 3 - 3-dose series) Never done COVID-19 VACCINE(1) Never done HEPATITIS C SCREENING Never done HIV SCREENING Never done SHINGRIX VACCINE(1 of 2) Never done DEPRESSION ASSESSMENT Never done MAMMOGRAM due on 03/05/2023 DIABETES SCREEN due on 06/19/2025 LIPID SCREEN due on 04/14/2026 PAP TESTING due on 03/03/2027 HPV TESTING due on 03/03/2027 COLORECTAL CANCER SCREENING due on 07/17/2027 DTAP,TDAP,TD(2 - Td or Tdap) due on 09/28/2027 INFLUENZA Completed ASSESSMENT/PLAN: 1. Seasonal allergies - ICD9: 477.9, ICD10: J30.2 (primary diagnosis) - may use zyrtec/Claritin OTC and Flonase nasal spray as directed on packaging. Rinse mouth after using Flonase - may use benadryl at night to help sleep - OLOPATADINE 0.1 % EYE DROPS - would recommend seeing observatory director if not improving 2. Overweight (BMI 25.0-29.9) - ICD9: 278.02, ICD10: E66.3 Newly diagnosed - Behavioral intervention - discussed different medication options for weight loss along with trying NOOM or weight watchers - Lengthy discussion in office today regarding diet and exercise. Discussed use of small plate to eat meals from, drink 1 glass of water 10-15 minutes prior to eating meal, drink 8 glasses of water daily, eat fresh fruit and vegetable during meal first then lean protein such as grilled/baked chicken breast or fish, limit carbohydrate intake (less pasta, breads, rice and snack foods) as well as limiting sugars (desserts etc). Important to count / track your calories and exercise as well. - follow-up as needed Cynthia Podlogar, ADMINISTRATIVE SERVICES OFFICER.SIMONIZER Prescription instructions reviewed with patient as applicable. Patient advised if symptoms do not improve or if symptoms worsen sooner, to contact their primary care physician. Potential red flag symptoms discussed with the patient. Reviewed appropriate action plan to take if red flag symptoms occur. Patient agreeable to treatment plan. I spent a total of 30 minutes on the date of the service which included preparing to see the patient, [id number] patient care, completing clinical documentation, obtaining and/or reviewing separately obtained history, performing a medically appropriate examination, counseling and educating the patient/family/caregiver, and ordering medications, tests, or procedures. .[facility]03-10-2023 Miscellaneous Notes* Telephone Encounter - Paola Hagan Ma - 06/26/2022 2:39 PM EST Provider message sent to pt via [email or web address]. Paola Hagan Ma * Telephone Encounter - Mellisa Buck Ma - 06/22/2022 9:19 AM EST [email or web address] message sent to pt notifying her of results below from Provider. Asked pt to contact officein regards to symptoms. Will keep encounter open until pt provides update. Mellisa Buck Ma * Telephone Encounter - Jazmyne Pineda APRN.CNP - 06/22/2022 8:19 AM EST Can you please call the patient and let her know that I reviewed her lab results. Labs were all normal. At this time I do not see any causes for her current symptoms. Can you pleaseask if symptoms have improved since stopping supplement? Thank you. Jazmyne Pineda APRN.CNP documented in this encounterOhio[facility]03-03-2023 NoteHNO ID: [id number] Author: Jazmyne Pineda APRN.CNP Service: ? Author Type: Nurse Practitioner Type: Progress Notes Filed: 06/19/2022 2:49 PM Note Text: This is a 56 year old female who presents today with: Patient presents with: Acute Visit: pins and needles all over. worst on feet HISTORY OF PRESENT ILLNESS: Carlene Baltazar is a 56 year old female. Patient presents with: Acute Visit: pins and needles all over. worst on feet Patient of Dr. Sanchez here in the office for pins and needle sensation all over body. Sensation is intermittent, will come and go. Symptoms started about 1 week ago. No history of diabetes or B-12 deficiency. Refer she just started a new supplement 1 week ago, Plexus Xfactor: Vit C, E, D, Thiamin, B6, folate, B12, Pantothenic acid PAST MEDICAL HISTORY: PAST MEDICAL HISTORY Diagnosis Date Arthritis of left hip 08/20/2015 Cervical high risk HPV (human papillomavirus) test positive 2018,2019,2020 Degenerative lumbar disc 08/20/2015 Esophageal reflux resolved Hyperlipidemia LDL goal <130 11/20/2004 Lumbago Better Lumbosacral radiculopathy at S1 12/26/2015 Other and unspecified hyperlipidemia Palpitations resolved Piriformis syndrome of left side 08/20/2015 Snoring PAST SURGICAL HISTORY Procedure Laterality Date COLONOSCOPY FLX DX W/COLLJ SPEC WHEN PFRMD 07/16/2017 Colonoscopy - normal-10 year follow-up ESOPHAGOGASTRODUODENOSCOPY TRANSORAL DIAGNOSTIC 11/05/2017 EGD ESSURE Approx 2004 LAPAROSCOPY SURG CHOLECYSTECTOMY 12/01/2017 Cholecystectomy, lap RETROGRADE URETHROGRAM ALLERGIES Doxycycline, Erythromycin, Macrobid [Nitrofurantoin Monohyd/M-Cryst], and Ultram [Tramadol Hcl] MEDICATIONS Current Outpatient Medications Medication Sig omeprazole (PRILOSEC) 20 mg capsule TAKE 1 CAPSULE DAILY BEFOREBREAKFAST; 1/2 HOUR BEFORE A MEAL MULTI-VITAMIN TAB .QD No current facility-administered medications for this visit. FAMILY HISTORY Problem Relation Age of Onset Thyroid Mother Osteoporosis Mother other (gerd) Mother Alcohol/Drug Father CIRRHOSIS Cancer Maternal Uncle Diabetes Paternal Grandmother Hypertension Paternal Grandmother Stroke Paternal Grandmother Diabetes Paternal Grandfather of [place] Diabetes Brother Alcohol/Drug Brother Social History Tobacco Use Smoking status: Never Smokeless tobacco: Never Vaping Use Vaping Use: Never used Substance Use Topics Alcohol use: Yes Comment: Occasionally Drug use: No REVIEW OF SYSTEMS GENERAL: No weight loss, malaise or fevers/chills HEENT: Negative for frequent or significant headaches, No changes in hearing or vision. NECK: Negative for lumps, goiter, pain and significant neck swelling RESPIRATORY: Negative for cough, hemoptysis, wheezing, dyspnea or shortness of breath CARDIOVASCULAR: Negative for chest pain, leg swelling, orthopnea, or palpitations GI: No nausea, vomiting, or diarrhea/constipation. No hematochezia/melena. No heartburn or reflux symptoms. : No history of dysuria, frequency or incontinence MUSCULOSKELETAL: Negative for joint pain or swelling. SKIN: Negative for lesions, rash, and itching ENDOCRINE: Negative for cold or heat intolerance, polyuria, polydipsia and goiter NEURO: + Tingling Sensation MOOD: Negative for depression, anxiety, or suicidal ideation. EXAM: BP 120/88 Pulse 82 Temp 36.7 ?C (98.1 ?F) (Left Tympanic) Resp 16 Wt 69.4 kg (153 lb) LMP 12/09/2014 SpO2 96% BMI 27.54 kg/m? PHYSICAL EXAM: General Appearance: Well appearing, alert, in no acute distress, well-hydrated, well nourished. Skin: Skin color, texture, turgor normal, no suspicious rashes or lesions. Head: Normocephalic, no masses, lesions, tenderness or abnormalities. Eyes: Anicteric sclera. Extraocular movements are intact. Lungs: Lungs clear to auscultation. No wheezing, rhonchi, rales. Heart: RRR without murmur, gallop, or rubs. No ectopy. Extremities: No deformities, edema, skin discoloration, clubbing or cyanosis. Good capillary refill. Musculoskeletal: No joint swelling, deformity, or tenderness. Peripheral Pulses: Normal, Capillary refill <2secs, strong peripheral pulses, Pulses palpable. Neurologic: Gait normal. Reflexes normal and symmetric. Sensation grossly intact., Negative findings: speech normal, mental status intact, cranial nerves 2-12 intact, muscle tone normal, muscle strength normal, sensation to light touch and pinprick normal, reflexes normal and symmetric. ASSESSMENT/PLAN: 1. Numbness and tingling - ICD9: 782.0, ICD10: R20.0, R20.2 - Exam WNL - Instructed to stop taking new supplement, concerns that this could be causing her symptoms. - Get the following labs completed for further evaluation. - VITAMIN D 25 HYDROXY - VITAMIN B12 BLOOD - CBC + DIFF - COMP METABOLIC PANEL - HGB A1C - FOLATE SERUM - TSH BLD - MAGNESIUM BLD Follow-up pending test results or sooner as needed. (more content not included)...[facility]03-03-2023 Instructions * Patient Instructions* Jazmyne Pineda APRN.CNP - 06/19/2022 11:59 AM EST Get labs completed today. Stop taking new supplement today. Rest from exercise over the weekend. Stay well hydrated. Follow up pending test results or sooner as needed. documented in this encounterOhio[facility]03-03-2023 History of Present illness Narrative* Jazmyne Pineda APRN.CNP - 06/19/2022 11:40 AM EST This is a 56 year old female who presents today with: Patient presents with: Acute Visit: pins and needles all over. worst on feet HISTORY OF PRESENT ILLNESS: Carlene Baltazar is a 56 year old female. Patient presents with: Acute Visit: pins and needles all over. worst on feet Patient of Dr. Sanchez here in the office for pins and needle sensation all over body. Sensation isintermittent, will come and go. Symptoms started about 1 week ago. No history of diabetes or B-12 deficiency. Refer she just started a new supplement 1 week ago, Plexus Xfactor: Vit C, E, D, Thiamin, B6, folate, B12, Pantothenic acid PAST MEDICAL HISTORY: PAST MEDICAL HISTORY Diagnosis Date Arthritis of left hip 08/20/2015 Cervical high risk HPV (human papillomavirus) test positive 2018,2019,2020 Degenerative lumbar disc 08/20/2015 Esophageal reflux resolved Hyperlipidemia LDL goal <130 11/20/2004 Lumbago Better Lumbosacral radiculopathy at S1 12/26/2015 Other and unspecified hyperlipidemia Palpitations resolved Piriformis syndrome of left side 08/20/2015 Snoring PAST SURGICAL HISTORY Procedure Laterality Date COLONOSCOPY FLX DX W/COLLJ SPEC WHEN PFRMD 07/16/2017 Colonoscopy - normal-10 year follow-up ESOPHAGOGASTRODUODENOSCOPY TRANSORAL DIAGNOSTIC 11/05/2017 EGD ESSURE Approx 2004 LAPAROSCOPY SURG CHOLECYSTECTOMY 12/01/2017 Cholecystectomy, lap RETROGRADE URETHROGRAM ALLERGIES Doxycycline, Erythromycin, Macrobid [Nitrofurantoin Monohyd/M-Cryst], and Ultram [Tramadol Hcl] MEDICATIONS Current Outpatient Medications Medication Sig omeprazole (PRILOSEC) 20 mg capsule TAKE 1 CAPSULE DAILY BEFOREBREAKFAST; 1/2 HOUR BEFORE A MEAL MULTI-VITAMIN TAB .QD No current facility-administered medications for this visit. FAMILY HISTORY Problem Relation Age of Onset Thyroid Mother Osteoporosis Mother other (gerd) Mother Alcohol/Drug Father CIRRHOSIS Cancer Maternal Uncle Diabetes Paternal Grandmother Hypertension Paternal Grandmother Stroke Paternal Grandmother Diabetes Paternal Grandfather of [place] Diabetes Brother Alcohol/Drug Brother Social History Tobacco Use Smoking status: Never Smokeless tobacco: Never Vaping Use Vaping Use: Never used Substance Use Topics Alcohol use: Yes Comment: Occasionally Drug use: No REVIEW OF SYSTEMS GENERAL: No weight loss, malaise or fevers/chills HEENT: Negative for frequent or significant headaches, No changes in hearing or vision. NECK: Negative for lumps, goiter, pain and significant neck swelling RESPIRATORY: Negative for cough, hemoptysis, wheezing, dyspnea or shortness of breath CARDIOVASCULAR: Negative for chest pain, leg swelling, orthopnea, or palpitations GI: No nausea, vomiting, or diarrhea/constipation. No hematochezia/melena. No heartburn or reflux symptoms. : No history of dysuria, frequency or incontinence MUSCULOSKELETAL: Negative for joint pain or swelling. SKIN: Negative for lesions, rash, and itching ENDOCRINE: Negative for cold or heat intolerance, polyuria, polydipsia and goiter NEURO: + Tingling Sensation MOOD: Negative for depression, anxiety, or suicidal ideation. EXAM: BP 120/88 Pulse 82 Temp 36.7 C (98.1 F) (Left Tympanic) Resp 16 Wt 69.4 kg (153 lb) LMP 12/09/2014 SpO2 96% BMI 27.54 kg/m PHYSICAL EXAM: General Appearance: Well appearing, alert, in no acute distress, well-hydrated, well nourished. Skin: Skin color, texture, turgor normal, no suspicious rashes or lesions. Head: Normocephalic, no masses, lesions, tenderness or abnormalities. Eyes: Anicteric sclera. Extraocular movements are intact. Lungs: Lungs clear to auscultation. No wheezing, rhonchi, rales. Heart: RRR without murmur, gallop, or rubs. No ectopy. Extremities: No deformities, edema, skin discoloration, clubbing or cyanosis. Good capillary refill. Musculoskeletal: No joint swelling, deformity, or tenderness. Peripheral Pulses: Normal, Capillary refill <2secs, strong peripheral pulses, Pulses palpable. Neurologic: Gait normal. Reflexes normal and symmetric. Sensation grossly intact., Negative findings: speech normal, mental status intact, cranial nerves 2-12 intact, muscle tone normal, muscle strength normal, sensation to light touch and pinprick normal, reflexes normal and symmetric. ASSESSMENT/PLAN: 1. Numbness and tingling - ICD9: 782.0, ICD10: R20.0, R20.2 - Exam WNL - Instructed to stop taking new supplement, concerns that this could be causing her symptoms. - Get the following labs completed for further evaluation. - VITAMIN D 25 HYDROXY - VITAMIN B12 BLOOD - CBC + DIFF - COMP METABOLIC PANEL - HGB A1C - FOLATE SERUM - TSH BLD - MAGNESIUM BLD Follow-up pending test results or sooner as needed. Discussed treatment plan and patient voices understanding. Patient's questions answered appropriately. Medications and potential side effects were discussed and patient voices understanding. Jazmyne Pineda APRN.CHADWICK This note was partially generated using Parac[employer]m voice recognition system. Note was reviewed for accuracy. There may be minor misspellings or grammar miscues with Parac[employer]m voice recognition. documented in this encounterOhiohealth [facility] Hospital02-13-2023 Miscellaneous Notes* Telephone Encounter - Paola Hagan Ma - 06/01/2022 5:12 PM EST Last office visit: 04/27/22 F/u scheduled: none Paola Hagan Ma * Telephone Encounter - Mayra Jimenez - 06/01/2022 4:00 PM EST Patient has been identified by name and date of : Yes Requested Prescriptions Pending Prescriptions Disp Refills omeprazole (PRILOSEC) 20 mg capsule 90 capsule 1 Sig: TAKE 1 CAPSULE DAILY BEFOREBREAKFAST; 1/2 HOUR BEFORE A MEAL RX INSTRUCTIONS: Patient aware RX escripted to mail away pharmacy. No need to notify patient. Mayra Peterson Pss documented in this encounterOhiohealth [facility] Hospital01-10-2023 Miscellaneous Notes* Telephone Encounter - Angelic Nickerson RN - 04/28/2022 8:19 AM EST Pt notified. Angelic Nickerson RN * Telephone Encounter - Cynthia Rubio APRN.CNP - 04/28/2022 7:49 AM EST Please call patient and let her know her COVID-19 and influenza testing are negative. Cynthia Rubio APRN.CNP documented in this encounterOhiohealth [facility]01-09-2023 History of Present illness Narrative* Cynthia Rubio APRN.CNP - 04/27/2022 3:12 PM EST 04/27/2022 Patient presents with: URI: Sore throat, cough, nasal congestion & feeling winded after walking x3 days Nail Fungus: Black and yellow fungus to both big toes on feet SUBJECTIVE: This is a 56 year old that is here today for Above Complaints.. For the last three days has had cough, sore throat and nasal congestion [place] winded after walking to mailbox. Also admits to chills and rhinorrhea. Father in law had influenza A but that was about one week ago. Taking Nyquil or dayquil with mild symptom relief. Denies fevers, muscle aches, headaches, wheezing, chest pain, nausea, vomiting or diarrhea NAILS: reports a year ago right big toenail developed fungus. Two or three months ago started with it on her left big toe. Has not treated with anything. Denies nail trauma PAST MEDICAL HISTORY Diagnosis Date Arthritis of left hip 08/20/2015 Cervical high risk HPV (human papillomavirus) test positive 2018,2019,2020 Degenerative lumbar disc 08/20/2015 Esophageal reflux resolved Hyperlipidemia LDL goal <130 11/20/2004 Lumbago Better Lumbosacral radiculopathy at S1 12/26/2015 Other and unspecified hyperlipidemia Palpitations resolved Piriformis syndrome of left side 08/20/2015 Snoring ALLERGIES Doxycycline, Erythromycin, Macrobid [Nitrofurantoin Monohyd/M-Cryst], and Ultram [Tramadol Hcl] MEDICATIONS Current Outpatient Medications Medication Sig omeprazole (PRILOSEC) 20 mg capsule TAKE 1 CAPSULE DAILY BEFOREBREAKFAST; 1/2 HOUR BEFORE A MEAL MULTI-VITAMIN TAB .QD No current facility-administered medications for this visit. Medications and allergies reviewed by this provider. SOCIAL HISTORY Social History Tobacco Use Smoking status: Never Smokeless tobacco: Never Vaping Use Vaping Use: Never used Substance Use Topics Alcohol use: Yes Comment: Occasionally Drug use: No REVIEW OF SYSTEMS All other reviewed and negative other than HPI. OBJECTIVE: BP 126/68 Pulse 81 Temp 36.6 C (97.8 F) Resp 20 Wt 70.2 kg (154 lb 12.8 oz) LMP 04/13/2015 (Exact Date) SpO2 99% BMI 27.86 kg/m . Vital signs reviewed by this provider. APPEARANCE Well appearing, alert, in no acute distress, well-hydrated, well nourished. EYES conjunctiva and sclera normal. EARS External ears normal, canals clear THROAT normal, no erythema NECK Supple, no adenopathy; thyroid symmetric, normal size, no bruits HEART RRR with normal S1 and S2, no murmurs, no gallops, no JVD appreciated LUNG clear to auscultation. No wheezes, rhonchi or rales. Moist cough noted. Able to speak in full sentences without difficulty SKIN Skin color, texture, turgor normal, no suspicious rashes or lesions to exposed skin FEET: bilateral toenails with black streaking under big toe nails HEPATITIS B(1 of 3 - 3-dose series) Never done COVID-19 VACCINE(1) Never done HEPATITIS C SCREENING Never done HIV SCREENING Never done SHINGRIX VACCINE(1 of 2) Never done DEPRESSION ASSESSMENT Never done MAMMOGRAM due on 03/05/2023 DIABETES SCREEN due on 04/14/2024 LIPID SCREEN due on 04/14/2026 PAP TESTING due on 03/03/2027 HPV TESTING due on 03/03/2027 COLORECTAL CANCER SCREENING due on 07/17/2027 DTAP,TDAP,TD(2 - Td or Tdap) due on 09/28/2027 INFLUENZA Completed ASSESSMENT/PLAN: 1. Upper respiratory infection, acute - ICD9: 465.9, ICD10: J06.9 (primary diagnosis) - Discussed viral etiology and rationale for treatment. - Symptomatic treatment with prn analgesia - Supportive care with fluids and rest - The patient may also use OTC decongestants prn, warm salt water gargles, throat lozenges and/or OTC throat spray as needed, and nasal saline gtts and suction prn. - Follow up in 3-5 days if symptoms persist or sooner if worsening of symptoms - COVID WITH FLUA+B, ROUTINE - 2019 CORONAVIRUS - isolate pending results 2. 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 Patient advised if symptoms do not improve or if symptoms worsen sooner, to contact their primary care physician. Potential red flag symptoms discussed with the patient. Reviewed appropriate action plan to take if red flag symptoms occur. Patient agreeable to treatment plan. I spent a total of 25 minutes on the date of the service which included preparing to see the patient, [id number] patient care, completing clinical documentation, obtaining and/or reviewing separately obtained history, performing a medically appropriate examination, counseling and educating the pat ient/family/caregiver, and ordering medications, tests, or procedures. documented in this encounterOhiohealth [facility] Hospital01-09-2023 Miscellaneous Notes* Telephone Encounter - Cynthia Rubio APRN.CNP - 04/27/2022 11:22 AM EST Reviewed. Cynthia Rubio APRN.CNP * Telephone Encounter - Betty Castro RN - 04/27/2022 10:45 AM EST Patient calls to report cough with sore throat and mild SOB. Nurse triage completed. Protocol recommends see provider within 4 hours. Transferred to schedule appointment. Reason for Disposition [1] MILD difficulty breathing (e.g., minimal/no SOB at rest, SOB with walking, pulse <100) AND [2] still present when not coughing Answer Assessment - Initial Assessment Questions 1. ONSET: Two days ago 2. SEVERITY: Bothersome 3. SPUTUM: clear to yellow 4. HEMOPTYSIS: No 5. DIFFICULTY BREATHING: - MILD: No SOB at rest, mild SOB with walking, speaks normally in sentences, can lie down, no retractions, pulse < 100. 6. FEVER: No 7. CARDIAC HISTORY: No history of heart attack or congestive heart failure. 8. LUNG HISTORY: No history of lung disease, pulmonary embolus, asthma, or emphysema. 9. PE RISK FACTORS: No recent major surgery, prolonged travel, and not bedridden. 10. OTHER SYMPTOMS: Sore throat. No runny nose, wheezing, or chest pain. Protocols used: Cough - Acute [id number] documented in this encounterOhiohealth Marion [facility] Hospital12-05-2022 Instructions* Patient Instructions* Jaxson Argueta Tn - 03/23/2022 3:06 PM EST YOUR RECOVERY It may take a few weeks for your cervix to heal. While your cervix heals, you may have: - Vaginal bleeding (less than a normal menstrual period) - Mild cramping - A brown-black vaginal discharge (similar to coffee grounds) which is a result of the paste used to help stop bleeding from the procedure Do NOT put anything in the vagina for 1 week after your colposcopy if your doctor does a biopsy of your cervix. This includes sex, tampons, and douches. If you have any discomfort, you may take an over the counter pain medication (motrin, advil, ibuprofen, tylenol, etc). If this does not relieve your discomfort, contact your doctor's office for a prescription strength pain medication. It is okay to wear a sanitary pad until the discharge and spotting stops. RISKS Although problems seldom occur with colposcopy, there can be some complications. You may feel faintduring and shortly after the procedure as well as have some bleeding and vaginal discharge after the procedure. There is also a risk of infection after the procedure. These complications are rare andcan be easily treated. You should contact you doctor is you have any of the following: - Heavy bleeding (more than your normal period) - Bleeding with clots - Severe abdominal pain - Fever (more than 100.4F) - Foul smelling vaginal discharge RESULTS If a biopsy was taken, we will have the results of your biopsy in 1-2 weeks. If you do not hear theresults of your biopsy after 2 weeks, please contact your physicians office for the results. Depending on the biopsy results, your doctor will determine your follow up plan which may include further testing or treatments. STAYING HEALTHY After the procedure, you will need to see your doctor for follow up visits during the year. At these visits your doctor will check the health of your cervix with a pap smear. After three normal pap smears, your doctor will allow you to return to having exams once a year. If you have another abnormal pap smear, you may need closer follow up for longer or you may need additional treatment. By making a few lifestyle changes after the procedure, you can help protect the health of your cervix: - Have regular pelvic exams and pap smears as ordered by your doctor. - Stop smoking as smoking increases your risk of developing a cancer of the cervix - If you have more than one sexual partner, limit your number of partners and use condoms to reduceyour risks of STDs. If you have any additional questions, please contact your doctor's office. documented in this encounterOhiohealth Marion [facility] Hospital12-05-2022 History of Present illness Narrative* Miky Urbano MD - 03/23/2022 3:04 PM EST Carlene is a 56 year old who presents today for a colposcopy. The patient's last pap smear was ASCUS with positive HPV non 16/18 type from February 2022. Patient has a history of abnormal pap: Yes. Thepatient has had prior treatment: none. test: n/a UNIVERSAL PROTOCOL / SAFETY CHECKLIST Procedure to be Performed: colposcopy w/ possible biopsy Sign In: A Moment of CARE was completed. Personnel directly involved with the procedure wore the appropriate PPE (Personal Protective Equipment). Patient/Surrogate Stated/Verified: PATIENT VERIFIED(optional for EMERGENT procedures): Patient name, Date of , Relevant allergies, and The intended procedure Time Out Communication: Intended patient and procedure match the source documents. Consent documented and matches the intended procedure. No implant(s) inserted. Sign Out: SIGN OUT (optional for EMERGENT procedures): All specimen containers correctly labeled. All instruments, equipment, possible retained foreign bodies accounted for. Post-procedure follow-up management communicated and Plan of Care Visit completed when applicable. Miky Urbano M.D. PROCEDURE: EXTERNAL GENITALIA: Normal in appearance without lesions VAGINA: Normal in appearance without lesions CERVIX: Speculum placed in vagina and excellent visualization of cervix achieved. Cervix swabbed x 3 with 3% acetic acid solution. Cervix grossly normal. Squamocolumnar junction visualized. No acetowhite changes, punctations, mosaicism or atypical vasculature noted. BIOPSY: Done at 4:00 ECC: done HEMOSTASIS: Obtained with silver nitrate Procedure Summary: Patient tolerated procedure well and colposcopy was adequate. ASSESSMENT: HPV effect PLAN: Specimens labeled and sent to Pathology. Will notify patient of results in 1-2 weeks. Post-procedure instructions reviewed and written material given to the patient. Miky Urbano MD documented in this encounterOhiohealth Marion [facility] Hospital11-17-2022 Miscellaneous Notes* Letter - Mammography Coordinator - 03/05/2022 10:59 AM EST March 05, 2022 PID: [id number] Carlene Baltazar [phone] [place] [address] Dear Ms. Baltazar, We are pleased to inform you that the results of your recent breast imaging exam on 03/05/2022 are normal. Your mammogram demonstrates that you have dense breast tissue, which could hide abnormalities. Dense breast tissue, in and of itself, is a relatively common condition. Therefore, this information is not provided to cause undue concern; rather, it is to raise your awareness and promote discussion with your health care provider regarding the presence of dense breast tissue in addition to other riskfactors. Early detection of cancer is very important. We also understand recommendations regarding breast cancer screening are controversial. Please discuss with your primary care provider which strategy is best for you and whether a mammogram is right for you. Your imaging studies and report will be kept on file at [facility] as part of your permanent medical record and are available for your continuing care. Thank you for allowing us to help in meeting your health care needs. Sincerely, Dr. Roach Interpreting Radiologist [facility] (Normal over 40) documented in this encounterOhiohealth Marion General Hospital11-17-2022 History of Present illness Narrative* Sita Espana RT(R) - 03/05/2022 7:50 AM EST Radiology Service Progress Note PATIENT NAME: Carlene Baltazar DATE OF SERVICE: March 05, 2022 TIME: 7:55 AM PATIENT IDENTITY VERIFICATION COMPLETED USING TWO (2) IDENTIFIERS: Name and Date of confirmedby patient verbally. FALL SCREENING: Has the patient had 2 falls in the last year or 1 fall with injury or currently using an Ambulatory Assistive Device (Walker, Cane, Wheelchair, Crutches, etc.)? No PATIENT GENDER DATA: Female. status: : No status: NO. PATIENT RELEVANT IMPLANT DATA REVIEWED: Not Applicable RADIOLOGY DEPARTMENT: Mammography PERIPHERAL IV DATA: Not applicable SIGNED BY: RT Roxanna(R) March 05, 2022 7:55 AM documented in this encounterOhiohealth Marion [facility] Hospital11-15-2022 Miscellaneous Notes* Addendum Note - aJxson Argueta Ma - 03/03/2022 2:50 PM ESTAddended by: JAXSON ARGUETA MA on: 03/03/2022 02:50 PM Modules accepted: Orders * Addendum Note - Jaxson Argueta Ma - 03/03/2022 2:49 PM ESTAddended by: JAXSON ARGUETA MA on: 03/03/2022 02:49 PM Modules accepted: Orders documented in this encounterOhiohealth Marion [facility] Hospital11-15-2022 History of Present illness Narrative* Miky Urbano MD - 03/03/2022 1:53 PM EST Carlene is a 56 year old who presents for an annual gynecologic exam without obstetrics gyn physician c/o. 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 She indicates this has gotten worse in the past 1-2 months. She has goneback to the reverse unit operator and told her family doctor about this but was told it was not related to the removal of her skin lesion and she did not get any answers. It has persisted and she wants to know if there is anything to do for it. Postmenopausal: yes HRT use: No. 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 History Comments: Sexual Activity: Yes; Male; ESSURE procedure Contraception: Surgical PAST MEDICAL HISTORY Diagnosis Date Arthritis of left hip 08/20/2015 Cervical high risk HPV (human papillomavirus) test positive 2018,2019,2020 Degenerative lumbar disc 08/20/2015 Esophageal reflux resolved Hyperlipidemia LDL goal <130 11/20/2004 Lumbago Better Lumbosacral radiculopathy at S1 12/26/2015 Other and unspecified hyperlipidemia Palpitations resolved Piriformis syndrome of left side 08/20/2015 Snoring PAST SURGICAL HISTORY Procedure Laterality Date COLONOSCOPY FLX DX W/COLLJ SPEC WHEN PFRMD 07/16/2017 Colonoscopy - normal-10 year follow-up ESOPHAGOGASTRODUODENOSCOPY TRANSORAL DIAGNOSTIC 11/05/2017 EGD ESSURE Approx 2004 LAPAROSCOPY SURG CHOLECYSTECTOMY 12/01/2017 Cholecystectomy, lap RETROGRADE URETHROGRAM FAMILY HISTORY Problem Relation Age of Onset Thyroid Mother Osteoporosis Mother other (gerd) Mother Alcohol/Drug Father CIRRHOSIS Cancer Maternal Uncle Diabetes Paternal Grandmother Hypertension Paternal Grandmother Stroke Paternal Grandmother Diabetes Paternal Grandfather of [place] Diabetes Brother Alcohol/Drug Brother SOCIAL HISTORY Social History Tobacco Use Smoking status: Never Smokeless tobacco: Never Vaping Use Vaping Use: Never used Substance Use Topics Alcohol use: Yes Comment: Occasionally Drug use: No REVIEW OF SYSTEMS Abdomen: No abdominal pain, nausea, vomiting, diarrhea, or constipation. No bloating, early satiety, indigestion, or increased flatulence. Bladder: No dysuria, gross hematuria, urinary frequency, urinary urgency, or incontinence Breast: No breast lumps, nipple d/c, overlying skin changes, redness or skin retraction Allergies and current medication updated:Yes EXAM: BP 116/78 Ht 5' 2.5 (1.59m) Wt 151 lb (68.5kg) LMP 04/13/2015 BMI 27.16 kg/(m^2). GENERAL: pleasant, female in no apparent distress HEENT: Normocephalic, atraumatic, mucus membranes moist, and no lesions NECK: Supple, full range of motion, no adenopathy, and thyroid normal DERMATOLOGY: Normal, without lesions, non-icteric, and non-hirsute- scar right shoulder w/ o erythema or noducle BREAST: soft, non-tender, symmetric, no dominant mass, normal nipple-areolar complex, no lymphadenopathy, and no nipple discharge CHEST: Normal inspiratory effort ABDOMEN: soft, non-tender, and no masses PELVIC: external genitalia normal, normal Bartholin's glands, urethra, [place]'s glands, no vulvar lesions, no cervical lesions, good vaginal support, physiologic discharge present, normal appearing perineal body and perianal region BIMANUAL: uterus normal size, shape and consistency, no adnexal masses, and non-tender RECTOVAGINAL: deferred. NEURO: alert and oriented x3,exam grossly non-focal EXTREMITIES: normal ASSESSMENT/PLAN: 1) Health maintenance: Pap/HPV up to date. Mammogram ordered Colon cancer screening: colonoscopy ordered pain in scar c/w nerve pain. Trial neurontin cream 2) Follow up one year or sooner as needed Miky Urbano MD documented in this encounterOhiohealth Marion [facility] Hospital10-26-2022 History of Present illness Narrative* Cynthia Rubio APRN.[facility] - 02/11/2022 2:45 PM EDT 02/11/2022 Patient presents with: Acute Visit: Pain to left arm pit that comes and goes since getting biopsy to left arm in July SUBJECTIVE: This is a 56 year old that is here today for Above Complaints.. ONSET: after skin cancer biopsy LOCATION: left upper medial arm DURATION: intermittent CHARACTERISTICS: burning and other times hurts almost into the axilla AGGRAVATING FEATURES: nothing ALLEVIATING FEATURES: has not used anything Denies hx of injury to area, shoulder/neck, breast/ chest pain, swelling, redness, warmth to area, arm weakness, axillary mass or swelling, breat mass ,numbness, or tingling PAST MEDICAL HISTORY Diagnosis Date Arthritis of left hip 08/20/2015 Cervical high risk HPV (human papillomavirus) test positive 2018,2019,2020 Degenerative lumbar disc 08/20/2015 Esophageal reflux resolved Hyperlipidemia LDL goal <130 11/20/2004 Lumbago Better Lumbosacral radiculopathy at S1 12/26/2015 Other and unspecified hyperlipidemia Palpitations resolved Piriformis syndrome of left side 08/20/2015 Snoring ALLERGIES Doxycycline, Erythromycin, Macrobid [Nitrofurantoin Monohyd/M-Cryst], and Ultram [Tramadol Hcl] MEDICATIONS Current Outpatient Medications Medication Sig omeprazole (PRILOSEC) 20 mg capsule Take 1 capsule by mouth daily before breakfast. 1/2 hr before meal. MULTI-VITAMIN TAB .QD No current facility-administered medications for this visit. Medications and allergies reviewed by this provider. SOCIAL HISTORY Social History Tobacco Use Smoking status: Never Smokeless tobacco: Never Vaping Use Vaping Use: Never used Substance Use Topics Alcohol use: Yes Comment: Occasionally Drug use: No REVIEW OF SYSTEMS All other reviewed and negative other than HPI. OBJECTIVE: BP 122/84 Pulse 69 Resp 16 Wt 69.3 kg (152 lb 12.8 oz) LMP 04/13/2015 (Exact Date) SpO2 96% BMI 27.50 kg/m . Vital signs reviewed by this provider. APPEARANCE Well appearing, alert, in no acute distress, well-hydrated, well nourished. EYES PERRLA, conjunctiva and sclera normal. NECK Supple, no adenopathy. FROM without pain. No TTP SKIN approximately 1.5 inch healed incision to left medal upper arm. No TTP, surrounding erythema, or swelling. LEFT ARM/AXILLA/SHOULDER: no oblivious deformity, erythema, swelling, muscle wasting. No TTP. FROM without pain or difficulty. DTR 2+. Hand grasps equal and strong. 2+ radial pulse HEPATITIS B(1 of 3 - 3-dose series) Never done COVID-19 VACCINE(1) Never done SHINGRIX VACCINE(1 of 2) Never done DEPRESSION ASSESSMENT Never done INFLUENZA(1) due on 12/18/2021 MAMMOGRAM due on 02/19/2022 HEPATITIS C SCREENING due on 03/19/2022 HIV SCREENING due on 03/19/2022 DIABETES SCREEN due on 04/14/2024 PAP TESTING due on 03/07/2026 HPV TESTING due on 03/07/2026 LIPID SCREEN due on 04/14/2026 COLORECTAL CANCER SCREENING due on 07/17/2027 DTAP,TDAP,TD(2 - Td or Tdap) due on 09/28/2027 ASSESSMENT/PLAN: 1. Pain of left upper arm - ICD9: 729.5, ICD10: M79.622 - consider branchial plexus vs unknown - discussed EMG testing- patient declines at this time and opts for conservative treatment with OTCibuprofen - patient will be completing mammogram next month - no red flag symptoms or exam findings - red flag symptoms discussed, verbalizes understanding - follow-up if symptoms fail to improve to ER with red flag symptoms - recommend EMG testing if persists Cynthia Rubio APRN.CNP Prescription instructions reviewed with patient as applicable. Patient advised if symptoms do not improve or if symptoms worsen sooner, to contact their primary care physician. Potential red flag symptoms discussed with the patient. Reviewed appropriate action plan to take if red flag symptoms occur. Patient agreeable to treatment plan. I spent a total of 30 minutes on the date of the service which included preparing to see the patient, [id number] patient care, completing clinical documentation, obtaining and/or reviewing separately obtained history, performing a medically appropriate examination, and counseling and educating the patient/family/caregiver. documented in this encounterOhiohealth [facility] Hospital07-01-2019 History of Past illness Narrative* Problem Noted Date Resolved Date Plantar fasciitis 10/17/2018 02/20/2020 Piriformis syndrome of left side 08/20/2015 04/17/2019 Irregular menstrual cycle 12/11/20102013 Dysmenorrhea 12/11/2010 04/05/2014 Symptomatic menopausal or female climacteric sta john 12/11/2010 02/20/2020 Hyperlipidemia LDL goal <130 11/20/2004 Palpitations 11/20/2004 04/17/2019 documented as of this encounter (statuses as of 02/11/2022) [facility] of Past illness Narrative* Problem Noted Date Resolved Date Plantar fasciitis 10/17/2018 02/20/2020 Piriformis syndrome of left side 08/20/2015 04/17/2019 Irregular menstrual cycle 12/11/20102013 Dysmenorrhea 12/11/2010 04/05/2014 Symptomatic menopausal or female climacteric sta john 12/11/2010 02/20/2020 Hyperlipidemia LDL goal <130 11/20/2004 Palpitations 11/20/2004 04/17/2019 documented as of this encounter (statuses as of 03/03/2022) [facility] of [facility] illness Narrative* Problem Noted Date Resolved Date Plantar fasciitis 10/17/2018 02/20/2020 Piriformis syndrome of left side 08/20/2015 04/17/2019 Irregular menstrual cycle 12/11/20102013 Dysmenorrhea 12/11/2010 04/05/2014 Symptomatic menopausal or female climacteric sta john 12/11/2010 02/20/2020 Hyperlipidemia LDL goal <130 11/20/2004 Palpitations 11/20/2004 04/17/2019 documented as of this encounter (statuses as of 03/07/2022) [facility] of [facility] illness Narrative* Problem Noted Date Resolved Date Plantar fasciitis 10/17/2018 02/20/2020 Piriformis syndrome of left side 08/20/2015 04/17/2019 Irregular menstrual cycle 12/11/20102013 Dysmenorrhea 12/11/2010 04/05/2014 Symptomatic menopausal or female climacteric sta john 12/11/2010 02/20/2020 Hyperlipidemia LDL goal <130 11/20/2004 Palpitations 11/20/2004 04/17/2019 documented as of this encounter (statuses as of 03/23/2022) [facility] of [facility] illness Narrative* Problem Noted Date Resolved Date Plantar fasciitis 10/17/2018 02/20/2020 Piriformis syndrome of left side 08/20/2015 04/17/2019 Irregular menstrual cycle 12/11/20102013 Dysmenorrhea 12/11/2010 04/05/2014 Symptomatic menopausal or female climacteric sta john 12/11/2010 02/20/2020 Hyperlipidemia LDL goal <130 11/20/2004 Palpitations 11/20/2004 04/17/2019 documented as of this encounter (statuses as of 04/27/2022) [facility] of [facility] Narrative* Problem Noted Date Resolved Date Plantar fasciitis 10/17/2018 02/20/2020 Piriformis syndrome of left side 08/20/2015 04/17/2019 Irregular menstrual cycle 12/11/20102013 Dysmenorrhea 12/11/2010 04/05/2014 Symptomatic menopausal or female climacteric sta john 12/11/2010 02/20/2020 Hyperlipidemia LDL goal <130 11/20/2004 Palpitations 11/20/2004 04/17/2019 documented as of this encounter (statuses as of 04/27/2022) [facility] of [facility] Narrative* Problem Noted Date Resolved Date Plantar fasciitis 10/17/2018 02/20/2020 Piriformis syndrome of left side 08/20/2015 04/17/2019 Irregular menstrual cycle 12/11/20102013 Dysmenorrhea 12/11/2010 04/05/2014 Symptomatic menopausal or female climacteric sta john 12/11/2010 02/20/2020 Hyperlipidemia LDL goal <130 11/20/2004 Palpitations 11/20/2004 04/17/2019 documented as of this encounter (statuses as of 04/28/2022) [facility] Narrative* Problem Noted Date Resolved Date Plantar fasciitis 10/17/2018 02/20/2020 Piriformis syndrome of left side 08/20/2015 04/17/2019 Irregular menstrual cycle 12/11/20102013 Dysmenorrhea 12/11/2010 04/05/2014 Symptomatic menopausal or female climacteric sta john 12/11/2010 02/20/2020 Hyperlipidemia LDL goal <130 11/20/2004 Palpitations 11/20/2004 04/17/2019 documented as of this encounter (statuses as of 06/02/2022) [facility] Narrative* Problem Noted Date Resolved Date Plantar fasciitis 10/17/2018 02/20/2020 Piriformis syndrome of left side 08/20/2015 04/17/2019 Irregular menstrual cycle 12/11/20102013 Dysmenorrhea 12/11/2010 04/05/2014 Symptomatic menopausal or female climacteric sta john 12/11/2010 02/20/2020 Hyperlipidemia LDL goal <130 11/20/2004 Palpitations 11/20/2004 04/17/2019 documented as of this encounter (statuses as of 06/19/2022) [facility] Narrative* Problem Noted Date Resolved Date Plantar fasciitis 10/17/2018 02/20/2020 Piriformis syndrome of left side 08/20/2015 04/17/2019 Irregular menstrual cycle 12/11/20102013 Dysmenorrhea 12/11/2010 04/05/2014 Symptomatic menopausal or female climacteric sta john 12/11/2010 02/20/2020 Hyperlipidemia LDL goal <130 11/20/2004 Palpitations 11/20/2004 04/17/2019 documented as of this encounter (statuses as of 06/26/2022) [facility] Narrative* Problem Noted Date Resolved Date Plantar fasciitis 10/17/2018 02/20/2020 Piriformis syndrome of left side 08/20/2015 04/17/2019 Irregular menstrual cycle 12/11/20102013 Dysmenorrhea 12/11/2010 04/05/2014 Symptomatic menopausal or female climacteric sta john 12/11/2010 02/20/2020 Hyperlipidemia LDL goal <130 11/20/2004 Palpitations 11/20/2004 04/17/2019 documented as of this encounter (statuses as of 09/22/2022) [facility] Narrative* Problem Noted Date Resolved Date Plantar fasciitis 10/17/2018 02/20/2020 Piriformis syndrome of left side 08/20/2015 04/17/2019 Irregular menstrual cycle 12/11/20102013 Dysmenorrhea 12/11/2010 04/05/2014 Symptomatic menopausal or female climacteric sta john 12/11/2010 02/20/2020 Hyperlipidemia LDL goal <130 11/20/2004 Palpitations 11/20/2004 04/17/2019 documented as of this encounter (statuses as of 10/02/2022) [facility] Narrative* Problem Noted Date Resolved Date Plantar fasciitis 10/17/2018 02/20/2020 Piriformis syndrome of left side 08/20/2015 04/17/2019 Irregular menstrual cycle 12/11/20102013 Dysmenorrhea 12/11/2010 04/05/2014 Symptomatic menopausal or female climacteric sta john 12/11/2010 02/20/2020 Hyperlipidemia LDL goal <130 11/20/2004 Palpitations 11/20/2004 04/17/2019 documented as of this encounter (statuses as of 10/13/2022) [facility] Narrative* Problem Noted Date Resolved Date Plantar fasciitis 10/17/2018 02/20/2020 Piriformis syndrome of left side 08/20/2015 04/17/2019 Irregular menstrual cycle 12/11/20102013 Dysmenorrhea 12/11/2010 04/05/2014 Symptomatic menopausal or female climacteric sta john 12/11/2010 02/20/2020 Hyperlipidemia LDL goal <130 11/20/2004 Palpitations 11/20/2004 04/17/2019 documented as of this encounter (statuses as of 10/13/2022) [facility] Narrative* Problem Noted Date Diagnosed Date Resolved Date Plantar fasciitis 10/17/2018 02/20/2020 Piriformis syndrome of left side 08/20/2015 04/17/2019 Irregular menstrual cycle 12/11/2010 Dysmenorrhea 12/11/2010 04/05/2014 Symptomatic menopausal or fe male climacteric states 12/11/2010 02/20/2020 Hyperlipidemia LDL goal <130 11/20/2004 04/17/2019 Palpitations 11/20/2004 04/17/2019 documented as of this encounter (statuses as of 10/30/2022) [facility]2019 History of Past illness Narrative* Problem Noted Date Diagnosed Date Resolved Date Plantar fasciitis 10/17/2018 02/20/2020 Piriformis syndrome of left side 08/20/2015 04/17/2019 Irregular menstrual cycle 12/11/2010 Dysmenorrhea 12/11/2010 04/05/2014 Symptomatic menopausal or fe male climacteric states 12/11/2010 02/20/2020 Hyperlipidemia LDL goal <130 11/20/2004 04/17/2019 Palpitations 11/20/2004 04/17/2019 documented as of this encounter (statuses as of 12/14/2022) [facility] History of Past illness Narrative* Problem Noted Date Diagnosed Date Resolved Date Plantar fasciitis 10/17/2018 02/20/2020 Piriformis syndrome of left side 08/20/2015 04/17/2019 Irregular menstrual cycle 12/11/2010 Dysmenorrhea 12/11/2010 04/05/2014 Symptomatic menopausal or fe male climacteric states 12/11/2010 02/20/2020 Hyperlipidemia LDL goal <130 11/20/2004 04/17/2019 Palpitations 11/20/2004 04/17/2019 documented as of this encounter (statuses as of 02/21/2023) [facility] History of Past illness Narrative* Problem Noted Date Diagnosed Date Resolved Date Plantar fasciitis 10/17/2018 02/20/2020 Piriformis syndrome of left side 08/20/2015 04/17/2019 Irregular menstrual cycle 12/11/2010 Dysmenorrhea 12/11/2010 04/05/2014 Symptomatic menopausal or fe male climacteric states 12/11/2010 02/20/2020 Hyperlipidemia LDL goal <130 11/20/2004 04/17/2019 Palpitations 11/20/2004 04/17/2019 documented as of this encounter (statuses as of 03/23/2023) [facility] History of Past illness Narrative* Problem Noted Date Diagnosed Date Resolved Date Plantar fasciitis 10/17/2018 02/20/2020 Piriformis syndrome of left side 08/20/2015 04/17/2019 Irregular menstrual cycle 12/11/2010 Dysmenorrhea 12/11/2010 04/05/2014 Symptomatic menopausal or fe male climacteric states 12/11/2010 02/20/2020 Hyperlipidemia LDL goal <130 11/20/2004 04/17/2019 Palpitations 11/20/2004 04/17/2019 documented as of this encounter (statuses as of 06/02/2023) [facility] Diagnosis Pain of left upper arm- Primary Pain in limb [facility] Diagnosis Breast pain, left- Primary Mastodynia Encounter for gynecological examination (general) (routine) without abnormal findings Encounter for screening mammogram for malignant neoplasm of breast Other screening mammogram Encounter for screening for malignant neoplasm of cervix Screening for malignant neoplasm of the cervix Cervical high risk HPV (human papillomavirus) test positive Cervical high risk human papillomavirus (HPV) DNA test positive [facility] Diagnosis Cervical high risk HPV (human papillomavirus) test positive- Primary Cervical high risk human papillomavirus (HPV) DNA test positive Need for influenza vaccination Need for prophylactic vaccination and inoculation against influenza [facility] Upper respiratory infection, acute- Primary Acute upper respiratory infections of unspecified site Longitudinal melanonychia Other specified disease of nail [facility] Diagnosis Gastroesophageal reflux disease without esophagitis Esophageal reflux [facility] Diagnosis Numbness and tingling- Primary Disturbance of skin sensation [facility] Diagnosis Sore throat- Primary Acute pharyngitis Viral URI with cough Acute upper respiratory infections of unspecified site [facility] Diagnosis Urinary frequency- Primary [facility] Diagnosis Dysuria- Primary Vaginal irritation Unspecified noninflammatory disorder of vagina [facility] Diagnosis Gastroesophageal reflux disease without esophagitis Esophageal reflux [facility] Diagnosis Encounter for screening mammogram for breast cancer [facility] Diagnosis Urinary frequency- Primary documented in this encounter [facility] for referral (narrative)* Diagnostic Procedure Only (Routine) - Authorized Specialty Diagnoses / Procedures Referred By Danii correa Referred To Contact [facility] Diagnoses Encounter for screening mammogram for malignant neoplasm of breast Procedures MINDI SCREENING W JEZ SCREENING DIGITAL BREAST TOMOSYNTHESIS BI SCREENING MAMMOGRAPHY BI 2-VIEW BREAST INC Miky Deleon MD [address] [place] [address] [facility] [address] [place] [address] Referral ID Status Reason Start Date Expiration Date Visits Requested Visits Authorized [id number] Authorized Auto-Generat ed Referral 04/02/2023 1 1 [facility] for referral (narrative)* Diagnostic Procedure Only (Routine) - Closed Specialty Diagnoses / Procedures Referred By Danii correa Referred To Contact [facility] Diagnoses Encounter for screening mammogram for breast cancer Procedures MINDI SCREENING W JEZ SCREENING BREAST DGTL JEZ UNI/BILAT ADD ON SCREENING MAMMOGRAPHY BI 2-VIEW BREAST INC Charley Harry APRN.CNM [address] [place] [address] [facility] [address] [place] [address] Referral ID Status Reason Start Date Expiration Date V isits Requested Visits Authorized [id number] Closed Auto-Generate d Referral 02/20/2021 03/22/2022 1 1 [facility] for visit Narrative* Diagnostic Procedure Only (Routine) - Closed Specialty Diagnoses / Procedures Referred By Danii correa Referred To Contact [facility] Diagnoses Encounter for screening mammogram for breast cancer Procedures MINDI SCREENING W JEZ SCREENING BREAST DGTL JEZ UNI/BILAT ADD ON SCREENING MAMMOGRAPHY BI 2-VIEW BREAST INC Charley Harry APRN.CNM [address] [place] [address] [facility] [address] [place] [address] Referral ID Status Reason Start Date Expiration Date V isits Requested Visits Authorized [id number] Closed Auto-Generate d Referral 02/20/2021 03/22/2022 1 1 [facility] Summary Purpose Family History No Family History Records FoundNo Family History Records FoundNo Family History Records FoundNo Family History Records Found Advance Directives No Advanced Directives Records FoundNo Advanced Directives Records FoundNo Advanced Directives Records FoundNo Advanced Directives Records Found Health Concerns Infection Onset Date Last Indicated Resolved Time COVID-19 Rule-Out 04/27/2022 04/27/2022 Infection Onset Date Last Indicated Resolved Time COVID-19 Rule-Out 04/27/2022 04/27/2022 04/28/2022 12:14 AM EST Additional Source Comments INFORMATION SOURCE (unrecogn ized section and content) DATE CREATED AUTHOR AUTHOR'S ORGANIZ ATION 02/28/2020 [facility] DATE CREATED AUTHOR AUTHOR'S ORGANIZ ATION 12/24/2021 [facility] DATE CREATED AUTHOR AUTHOR'S ORGANIZ ATION 06/06/2023 [facility] Source Comments (unrecognize d section and content) In the event this informatio n is protected by the Federal Confidentiality of Alcohol and Drug Abuse Patient Records regulations: The Federal rules restrict any use of the information to criminally investigate or prosecute any alcohol or drug abuse patient.[facility] the event this information is protected by the Federal Confidentiality of Alcohol and Drug Abuse Patient Records regulations: The Federal rules restrict any use of the information to criminally investigate or prosecute any alcohol or drug abuse patient.[facility] the event this information is protected by the Federal Confidentiality of Alcohol and Drug Abuse Patient Records regulations: The Federal rules restrict any use of the information to criminally investigate or prosecute any alcohol or drug abuse patient.[facility] the event this information is protected by the Federal Confidentiality of Alcohol and Drug Abuse Patient Records regulations: The Federal rules restrict any use of the information to criminally investigate or prosecute any alcohol or drug abuse patient.[facility] the event this information is protected by the Federal Confidentiality of Alcohol and Drug Abuse Patient Records regulations: The Federal rules restrict any use of the information to criminally investigate or prosecute any alcohol or drug abuse patient.[facility] the event this information is protected by the Federal Confidentiality of Alcohol and Drug Abuse Patient Records regulations: The Federal rules restrict any use of the information to criminally investigate or prosecute any alcohol or drug abuse patient.[facility] the event this information is protected by the Federal Confidentiality of Alcohol and Drug Abuse Patient Records regulations: The Federal rules restrict any use of the information to criminally investigate or prosecute any alcohol or drug abuse patient.[facility] the event this information is protected by the Federal Confidentiality of Alcohol and Drug Abuse Patient Records regulations: The Federal rules restrict any use of the information to criminally investigate or prosecute any alcohol or drug abuse patient.[facility] the event this information is protected by the Federal Confidentiality of Alcohol and Drug Abuse Patient Records regulations: The Federal rules restrict any use of the information to criminally investigate or prosecute any alcohol or drug abuse patient.[facility] the event this information is protected by the Federal Confidentiality of Alcohol and Drug Abuse Patient Records regulations: The Federal rules restrict any use of the information to criminally investigate or prosecute any alcohol or drug abuse patient.[facility] the event this information is protected by the Federal Confidentiality of Alcohol and Drug Abuse Patient Records regulations: The Federal rules restrict any use of the information to criminally investigate or prosecute any alcohol or drug abuse patient.[facility] Hospital[facility] the event this information is protected by the Federal Confidentiality of Alcohol and Drug Abuse Patient Records regulations: The Federal rules restrict any use of the information to criminally investigate or prosecute any alcohol or drug abuse patient.[facility] the event this information is protected by the Federal Confidentiality of Alcohol and Drug Abuse Patient Records regulations: The Federal rules restrict any use of the information to criminally investigate or prosecute any alcohol or drug abuse patient.[facility] the event this information is protected by the Federal Confidentiality of Alcohol and Drug Abuse Patient Records regulations: The Federal rules restrict any use of the information to criminally investigate or prosecute any alcohol or drug abuse patient.[facility] HospitalIn the event this information is protected by the Federal Confidentiality of Alcohol and Drug Abuse Patient Records regulations: The Federal rules restrict any use of the information to criminally investigate or prosecute any alcohol or drug abuse patient.[facility] HospitalIn the event this information is protected by the Federal Confidentiality of Alcohol and Drug Abuse Patient Records regulations: The Federal rules restrict any use of the information to criminally investigate or prosecute any alcohol or drug abuse patient.[facility] Hospital[facility] the event this information is protected by the Federal Confidentiality of Alcohol and Drug Abuse Patient Records regulations: The Federal rules restrict any use of the information to criminally investigate or prosecute any alcohol or drug abuse patient.[facility] HospitalIn the event this information is protected by the Federal Confidentiality of Alcohol and Drug Abuse Patient Records regulations: The Federal rules restrict any use of the information to criminally investigate or prosecute any alcohol or drug abuse patient.[facility] HospitalIn the event this information is protected by the Federal Confidentiality of Alcohol and Drug Abuse Patient Records regulations: The Federal rules restrict any use of the information to criminally investigate or prosecute any alcohol or drug abuse patient.[facility] Reason for Visit (unrecogniz ed section and content) Reason Comments Yearly Exam Reason Onset Date Comments Colposcopy Immunizations 03/23/2022 Flu vaccination Specialty Diagnoses / Procedures Referred By Danii correa Referred To Contact [facility] Diagnoses Cervical high risk HPV (human papillomavirus) test positive Procedures COLPOSCOPY COLPOSCOPY CERVIX BX CERVIX & ENDOCRV CURRETAGE Miky Urbano MD [address] [place] [address] [facility] [address] [place] [address] Referral ID Status Reason Start Date Expiration Date V isits Requested Visits Authorized [id number] Closed Auto-Generate d Referral 03/06/2022 03/06/2023 1 1 Reason Comments Cough Reason Comments URI Sore throat, cough, nasal congestion & feeling winded after walking x3 days Nail Fungus Black and yellow fun naveen to both big toes on feet Specialty Diagnoses / Procedures Referred By Danii correa Referred To Contact [facility] Diagnoses Consult test treat Procedures Consult [facility] treat [facility] [address] [place] [address] Referral ID Status Reason Start Date Expiration Date V isits Requested Visits Authorized [id number] Closed OON/Self Pay Override Financial Clearance Required - Self Pay Patient Cleared - True Self-Pay required payment collected 04/27/2022 10/24/2022 1 1 Reason Comments Results Reason Onset Date Comments Refill Request 06/01/2022 Reason Comments Acute Visit pins and needles all over. worst on feet Reason Comments Results Labs Reason Comments Cough sore throat and fati rocael x 1 day Specialty Diagnoses / Procedures Referred By Contac t Referred To Contact [facility] Diagnoses Sore throat Cough Lethargic sore throat, cough,legthargic Procedures OFFICE/OUTPATIENT ESTABLISHED MOD MDM 30-39 MIN EST SAME DAY Self Maggi Taveras APRN.SIMONIZER [address] [place] [address] Referral ID Status Reason Start Date Expiration Date Visits Re quested Visits Authorized [id number] Closed 09/21/2022 04/18/2023 1 1 Reason Comments Urinary Frequency With low back pain x 1 day Specialty Diagnoses / Procedures Referred By Contac t Referred To Contact [facility] Diagnoses Low back pain possible uti, low back pain and frequency Procedures OFFICE/OUTPATIENT ESTABLISHED MOD MDM 30-39 MIN EST SAME DAY Self Reji Lafleur MD [address] [place] [address] Referral ID Status Reason Start Date Expiration Date Visits Re quested Visits Authorized [id number] Closed 10/02/2022 04/18/2023 1 1 Reason Comments Patient Update Reason Comments Follow Up Patient seen in [facility] 0 10/02/22 and treated for UTI. Completed ATB and reports yeast infection. Wanting to see if UTI gone due to still having back pain. Specialty Diagnoses / Procedures Referred By Contac t Referred To Contact [facility] Diagnoses Follow-up exam Procedures OFFICE/OUTPATIENT ESTABLISHED LOW MDM 20-29 MIN OFFICE/OUTPATIENT ESTABLISHED MOD MDM 30-39 MIN Ramez Sanchez MD [address] [place] [address] [facility] [address] [place] [address] Referral ID Status Reason Start Date Expiration Date Visits Re quested Visits Authorized [id number] Closed 10/13/2022 04/18/2023 1 1 Reason Onset Date Comments Refill Request 10/29/2022 Reason Comments Physical Reason Comments Urinary Problem Frequency, painful x 3 days Care Teams (unrecognized sec tion and content) Laboratory [facility] Relationship Specialty Start Date End Date Ramez Sanchez MD [address] [facility] [place] [address] PCP - General Family Medicine 03/19/21 Laboratory [facility] Relationship Specialty Start Date End Date Ramez Sanchez MD [address] [facility] [place] [address] PCP - General Family Medicine 03/19/21 Laboratory [facility] Relationship Specialty Start Date End Date Ramez Sanchez MD [address] [facility] [place] [address] PCP - General Family Medicine 03/19/21 Laboratory [facility] Relationship Specialty Start Date End Date Ramez Sanchez MD [facility] [place] [address] PCP - General Family Medicine 03/19/21 Laboratory [facility] Relationship Specialty Start Date End Date Ramez Sanchez MD [address] [facility] [place] [address] PCP - General Family Medicine 03/19/21 Laboratory [facility] Relationship Specialty Start Date End Date Ramez Sanchez MD [address] [facility] [place] [address] PCP - General Family Medicine 03/19/21 Laboratory [facility] Relationship Specialty Start Date End Date Ramez Sanchez MD [address] [facility] [place] [address] PCP - General Family Medicine 03/19/21 Laboratory [facility] Relationship Specialty Start Date End Date Ramez Sanchez MD [address] [facility] [place] [address] PCP - General Family Medicine 03/19/21 Laboratory [facility] Relationship Specialty Start Date End Date Ramez Sanchez MD [address] [facility] [place] [address] PCP - General Family Medicine 03/19/21 Laboratory [facility] Relationship Specialty Start Date End Date Ramez Sanchez MD [address] [facility] [place] [address] PCP - General Family Medicine 03/19/21 Laboratory [facility] Relationship Specialty Start Date End Date Ramez Sanchez MD [address] [facility] [place] [address] PCP - General Family Medicine 03/19/21 Laboratory [facility] Relationship Specialty Start Date End Date Ramez Sanchez MD [address] [facility] [place] [address] PCP - General Family Medicine 03/19/21 Laboratory [facility] Relationship Specialty Start Date End Date Ramez Sanchez MD [address] [facility] [place] [address] PCP - General Family Medicine 03/19/21 Laboratory [facility] Relationship Specialty Start Date End Date Ramez Sanchez MD [address] [facility] [place] [address] PCP - General Family Medicine 03/19/21 Laboratory [facility]ure[facility] Relationship Specialty Start Date End Date Ramez Sanchez MD [address] [facility] [place] [address] PCP - General Family Medicine 03/19/21 Laboratory [facility] Relationship Specialty Start Date End Date Ramez Sanchez MD [address] [facility] [place] [address] PCP - General Family Medicine 03/19/21 FOR RECORDS PERTAINING TO PATIENTS WHO ARE OR HAVE BEEN ENROLLED IN A CHEMICAL DEPENDENCY/SUBSTANCEABUSE PROGRAM, SOME INFORMATION MAY BE OMITTED. This clinical summary was aggregated from multiple sources. Caution should be exercised in using it in the provision of clinical care. This summary normalizes information from multiple sources, and as a consequence, information in this document may materially change the coding, format and clinical context of patient data. In addition, data may be omitted in some cases. CLINICAL DECISIONS SHOULD BE BASED ON THE PRIMARY CLINICAL RECORDS. [facility]. provides no warranty or guarantee of the accuracy or completeness of information in this document.
--- NOTE | 2023-06-09 11:52 | NEURO_ITS ---
NCS and/or EMG Patient Report Ordering Doctor: Jose Raul Rosales DATE OF SERVICE: 06/09/23 Carlene presents for electrodiagnostic testing of the right upper limb. She reports stiffness and tightness in the right hand. She will occasionally drop objects. She had carpal tunnel release approximately 1-1/2 years ago. Electrodiagnostic findings: Right median motor nerve demonstrates normal distal latency, amplitude and conduction velocity. Normal right ulnar motor response, including conduction across the elbow. Normal median and ulnar F?waves. Borderline prolonged right median sensory latency at the wrist. Normal right median palmar latency. Normal ulnar radial sensory responses. Needle EMG testing was performed in the right upper limb. All muscles tested showed no evidence of denervation with normal motor unit action potentials. Electrodiagnostic impression: This is a normal electrodiagnostic study of the right upper limb. There is no electrodiagnostic evidence for peripheral neuropathy, including recurrent carpal tunnel syndrome. There is no electrodiagnostic evidence for cervical radiculopathy. Multi Select Codes Neurology Neurology Interp Codes: 62164-73 Musc test done w/n test comp (interp) and 9591 0-26 Nrv cndj test 7-8 studies (interp)
== END | disposition home or self-care (01) ==
PROVIDERS: Referring Provider Orthopaedic Surgery; Visit Provider Orthopaedic Surgery
DX: M79.641 Pain in right hand (principal)
CPT/HCPCS: 95886; 95910

== ENCOUNTER 2023-06-21 10:08 | Emergency (ER) | payer OTHER, SELFPAY ==
[2023-06-21 10:10] VITALS: BP 138/84; PULSE 66; RESP 14; TEMP 37; O2SAT 99; BMI 28.2
--- NOTE | 2023-06-21 10:46 | EKG12_ITS ---
Test Reason : Blood Pressure : / mmHG Vent. Rate : 081 BPM Atrial Rate : 081 BPM P-R Int : 156 ms QRS Dur : 090 ms QT Int : 374 ms P-R-T Axes : 052 -03 031 degrees QTc Int : 434 ms Normal sinus rhythm Normal ECG Confirmed by Jose Raul Cloud ([id number]), subeditor FARHAD THRASHER ([id number]) on 06/23/2023 9:30:07 AM Referred By: TYLOR Confirmed By:Jose Raul Cloud
[2023-06-21 11:02] LABS: Absolute Lymphocyte Count 1.53 X10^3/uL (0.83-4.51); Absolute Neutrophil Count 2.5 X10^3/uL (2.0-7.7); Basophil# 0.06 X10^3/uL; Basophil% 1.3 % (0-1); Eosinophil# 0.12 X10^3/uL; Eosinophils% 2.6 % (0-5); Hemoglobin 14.6 g/dL (12.0-15.0); Lymphocyte # 1.53 X10^3/ul (0.83-4.51); Lymphocyte % 33.5 % (19-41); Mean Corpuscular Hgb 32.1 pg (27.0-32.0); Mean Corpuscular Volume 94.5 fL (81-99); Mean Platelet Vol. 9.8 fl (6.2-12.0); Monocyte% 8.8 % (0-10); NRBC Flagged by Analyzer 0 % (0-5); Neutrophil # 2.45 X10^3/uL (2.7-7.7); Neutrophil % 53.6 % (47-70); Platelet Count 254 K/mm3 (150-450); RBC Distribution Width CV 13.1 % (11.6-14.6); RBC Distribution Width SD 45.5 fl (35.1-43.9); Red Blood Count 4.55 M/mm3 (4.2-5.4); White Blood Count 4.6 K/mm3 (4.4-11.0)
--- NOTE | 2023-06-21 11:05 | EDS_ITS ---
HPI History of Present Illness Chief Complaint: Chest Pain Detail of Chief Complaint: Chest pain, diaphoresis and not feeling normal self Informant: patient Onset/Context/Timing Onset: Days (Chest discomfort Wednesday, diaphoresis Wednesday, not feeling right today) Context: Sudden Onset Timing: Intermittent Quality: Per HPI narrative Location: Midsternal Current Severity: Gone Maximum Severity: Moderate Worsened by: Nothing Relieved by: Nothing Associated Symptoms Associated Symptoms: None and no radiation Narrative Narrative: Patient is a healthy 57-year-old woman who is quite active. She states she runs on a regular basis. She is on PPI for reflux. Wednesday she experienced chest heaviness essentially entire day. There is no radiation or associated symptoms. There is no alleviating, precipitating or exacerbating factors. She denied any heartburn or indigestion. She does recall several weeks ago she had discomfort in her chest that was moving upward. She denies black or maroon-colored stool. She denies history of VTE. She denies leg pain, swelling discoloration. She has no risk factors for VTE. Patient states Wednesday she awoke sweaty. She was not certain if this was hot flashes related to the chest discomfort. She had no chest discomfort or any other symptoms. Today she does not feel her normal self. She has not had diaphoresis since Wednesday and has not had chest discomfort since Wednesday. She denies fever. She reports some chills. She has no viral-like symptoms. She denies headache, visual, ocular auditory symptoms. She denies urologic symptoms. Prior similar symptoms: No Recent Illness/Hospitalization: No PFSH PFSH Home Medications omeprazole 20 mg capsule,delayed release 20 mg PO DAILY 03/23/16 [History Last Taken Unknown] multivitamin (Multiple Vitamins tablet) 1 ea PO DAILY 11/26/17 [History Last Taken Unknown] oxycodone-acetaminophen 5 mg-325 mg tablet 1 tab PO Q4H PRN PRN Pain 7 days #14 tabs 12/01/17 [Rx Last Taken Unknown] Allergy/AdvReac Type Severity Reaction Status Date / Time doxycycline AdvReac not sure- Verified 06/21/23 10:10 n/v erythromycin base AdvReac Nausea/Vom/ Verified 06/21/23 10:10 Diarrhea nitrofurantoin AdvReac Nausea/Vom/ Verified 06/21/23 10:10 [From Macrobid] Diarrhea tramadol [From Ultram] AdvReac Nausea/Vom/ Verified 06/21/23 10:10 Diarrhea Social History (Updated 06/21/23 @ 11:[address] Lee Phelps MD) household members: spouse Smoking Status: Never smoker ROS ROS ED Constitutional Constitutional ED: Reports chills; Denies fever(s), subjective, sweats or weight loss Eyes Eyes: Denies blurry vision, change in vision or diplopia ENT ENT ED: Denies ear pain, rhinorrhea or sore throat Cardiovascular Cardiovascular: Reports chest pain; Denies orthopnea, palpitations, paroxysmal nocturnal dyspnea or racing heartbeat Respiratory/Chest Respiratory/Chest: Denies cough, dyspnea, dyspnea on exertion, orthopnea or paroxysmal nocturnal dyspnea Gastrointestinal Gastrointestinal: Denies abdominal pain, constipation, diarrhea, melena, nausea or vomiting Genitourinary Genitourinary ED: Denies dysuria, hematuria or urinary frequency Musculoskeletal Musculoskeletal: Denies arthralgias, back pain or myalgias Integumentary Denies rash Neurologic Neurologic: Denies headache(s) or weakness Hematologic/Lymphatic Hematologic/Lymphatic: Reports systems reviewed and no addt'l complaints, except as documented EXAM Physical Exam Const Vital Signs: 06/21/23 10:10 06/21/23 10:53 06/21/23 11:16 Temperature 98.6 F Temperature Source Temporal Pulse Rate 66 81 Respiratory Rate 14 16 Respiratory Effort Normal Non-Labored Blood Pressure 138/84 H 128/77 H Blood Pressure Mean 102 94 Pulse Ox 99 100 Oxygen Delivery Method Room Air Room Air 06/21/23 11:37 06/21/23 11:58 Temperature Temperature Source Pulse Rate 76 80 Respiratory Rate 13 19 H Respiratory Effort Blood Pressure 125/77 H 129/74 H Blood Pressure Mean 93 92 Pulse Ox 96 98 Oxygen Delivery Method Room Air Room Air Positive well nourished and well developed General Appearance ED: well developed and NAD; Negative for pallor HEENT HEENT Narrative: Atraumatic and normocephalic. Ears normal. Nares patent. Eyes PERRL and EOMs intact bilaterally General Eye ED: Negative for pale conjunctiva or scleral icterus Neck no lymphadenopathy, supple and no JVD Chest Wall inspection of chest normal and palpation of chest normal Resp normal respiratory effort and clear to auscultation bilaterally Cardio regular rate, regular rhythm, S1 normal heart sound, S2 normal heart sound and no murmurs GI normal to inspection, nondistended, normoactive bowel sounds, non-tender, non- distended and no masses; Negative for hepatosplenomegaly Back/Spine no CVA tenderness Extremity normal to inspection Extremity Narrative: There is no asymmetry, swelling, discoloration, leg vein distention, palpable cords or tenderness along the distribution of the deep venous system. General Extremety ED: Negative for edema or tenderness General Extremity: Negative for edema Neuro oriented x3, CN's II-XII intact bilaterally and no sensory deficits noted Sensorium / Orientation: alert Psych mental status grossly normal Skin no rashes or lesions noted, no wounds and skin turgor normal General Skin Exam: elasticity normal; Negative for jaundice or pallor MDM MDM MDM Narrative Medical decision making narrative: Chest pain represent cardiac versus noncardiac. Noncardiac would be reflux. Doubt choledocholithiasis and she is status postcholecystectomy. Doubt pulmonary. The diaphoresis Wednesday may be due to hot flashes . There is no concern for DVT at this point. Will obtain CBC to assess white count and H&H. BMP to assess renal function and troponin. Only 1 troponin was ordered since she had hours of pain on Wednesday has not had pain since. Lab Data Attestation: I reviewed the patient's lab results. Lab results narrative: CBC is unremarkable. Basic metabolic panel is normal. Troponin is 4 which is normal and rules out cardiac etiology. Patient was informed the cause of her chest discomfort is unknown. Suspect the diaphoresis Wednesday may have been hot flashes. Labs: Laboratory Results - last 24 hr 06/21/23 10:30 WBC 4.6 RBC 4.55 Hgb 14.6 Hct 43.0 MCV 94.5 MCH 32.1 H MCHC 34.0 RDW Std Deviation 45.5 H RDW Coeff of Jeanette 13.1 Plt Count 254 MPV 9.8 Immature Gran % (Auto) 0.200 Neut % (Auto) 53.6 Lymph % (Auto) 33.5 [place] % (Auto) 8.8 Eos % (Auto) 2.6 Baso % (Auto) 1.3 H Absolute Neuts (auto) 2.5 Absolute Lymphs (auto) 1.53 Nucleated RBC % 0 Sodium 140 Potassium 3.9 Chloride 111 H Carbon Dioxide 27.0 Anion Gap 2 L BUN 11 Creatinine 0.80 Estim Creat Clear Calc 71.11 Est GFR (MDRD) Af Amer 94 Est GFR (MDRD) Non-Af 78 BUN/Creatinine Ratio 13.7 Glucose 86 Calcium 9.8 Troponin I High Sens 4 EKG Initial EKG: Attestation: I personally reviewed and interpreted this EKG as follows: Interpretation: Sinus Rhythm (Rate is 81 and normal. [place] interval 106 ms. Cures duration 90 ms. QT duration 3 and 74 ms. [place] is normal. This is essentially unchanged from December 01, 2017.) Prior: Unchanged Discharge Plan Triage Chief Complaint: Chest Pain ED Provider: Lee Phelps Dx/Rx/DC Orders Clinical Impression: Chest pressure, Hx of gastroesophageal reflux (GERD), Diaphoresis Instructions: ED Chest Pain, Noncardiac, ED Chest Pain, Uncertain Cause Prescriptions: No Action omeprazole 20 MG capsule 20 mg PO DAILY multivitamin [Multiple Vitamins] 1 EACH tablet 1 ea PO DAILY oxycodone-acetaminophen 1 TABLET tablet 1 tab PO Q4H PRN PRN (Reason: Pain) 7 Days Qty: 14 0RF Primary Care Provider: Adan Sanchez Referrals: Adan Sanchez MD [Primary Care Provider] - 1 Week if not improving Care Physician,No Primary [Non-Staff] - Disposition Disposition: Home, Self Care
[2023-06-21 11:16] VITALS: BP 128/77; PULSE 81; RESP 16; O2SAT 100
[2023-06-21 11:16] LABS: Anion Gap 2 (5-15); BUN 11 mg/dL (7-18); BUN/Creat Ratio 13.7 RATIO (10-20); Calcium,Total 9.8 mg/dL (8.5-10.1); Chloride 111 mmol/L (98-107); EST Glomerular Filtration Rate 78 mL/min (>60); Est Glom Filt Rate - Afr Amer 94 mL/min (>60); Estimated Creatinine Clearance 71.11 ml/min; Glucose 86 mg/dL (74-106); Potassium 3.9 mmol/L (3.5-5.1); Sodium Level 140 mmol/L (136-145); Troponin-I HS 4 pg/mL (3.0-54.0)
--- OUTSIDE RECORDS SUMMARY | 2023-06-21 11:29 | XMS RPT_ITS | CCD ---
Author Name Unknown Address [address] [place] [address] Organization [facility] Care Team Providers Care Tractor Operator Name Role Phone PARISH PAYNE (AWS DEVELOPER) Unavailable Unavailable JAMES, ANNIE PAC Admitting Unavailable JAMES, ANNIE PAC Attending Unavailable JAMES, ANNIE PAC Primary Care Unavailable CEBUL, ALEXANDRE III Consulting Unavailable PROVIDER, UNKNOWN Consulting Unavailable JAMES, ANNIE PAC Admitting Unavailable JAMES, ANNIE PAC Attending Unavailable JAMES, ANNIE PAC Primary Care Unavailable CEBUL, ALEXANDRE III Consulting Unavailable PROVIDER, UNKNOWN Consulting Unavailable Ramez Sanchez MD Primary Care Provider Ramez Sanchez MD Primary Care Provider MIKY URBANO Attending Unavailable MIKY URBANO Referring Unavailable RAMEZ [...] Care Unavailab RAMEZ Varela Primary Care Unavailab RAMEZ Varela Primary Care Unavailab RAMEZ Varela Primary Care Unavailab CYNTHIA Bunch Attending Unavailable RAMEZ SANCHEZ Primary Care Unavailab JAZMYNE Schneider Referring Unavailable RAMEZ SANCHEZ Primary Care Unavailab JAZMYNE Schneider Attending Unavailable RAMEZ SANCHEZ Primary Care Unavailab le RAMEZ SANCHEZ Primary Care Unavailab le Allergies Allergy Classification Reported Allergen(s) Allergy Type Date of Onset Reaction(s) Facility (20 sources) doxycycline; Translations: [DOXYCYCLINE] Drug Allergy 02-16-20 07 Rash [facility] Repository (20 sources) erythromycin; Translations: [ERYTHROMYCIN] Drug Allergy 11-21-19 05 Rash [facility] Repository (20 sources) traMADol; Translations: [TRAMADOL HCL] Drug Allergy 11-21-19 05 GI Upset [facility] Repository (20 sources) NITROFURANTOIN MONOHYD/M-CRYST; Translations: [NITROFURANTOIN MONOHYD/M-CRYST] Propensity to adverse reactions to drug (disorder) 08-18-19 10 GI Upset, Vomiting [facility] Repository Medications Current Medications Medication Drug [...] Drug Class(es) Dates Sig (Normalized) Sig (Original) cyclobenzaprine hydrochloride 10 mg oral tablet (1 source) Muscle Relaxant Start: 05-11-2023 take 1 tablet by mouth once daily at bedtime cyclobenzaprine (FLEXERIL) 10 mg tablet Take 10 mg by mouth daily at bedtime. 0 05/11/2023 Active Problems Active Problems Problem Classification Problem [...] than 30; Translations: [Overweight] 12-14-2022 Episodic Other skin disorders (1 source) Longitudinal [...] 10-17-2018 Episodic Genitourinary symptoms and ill-defined conditions (5 sources) Increased frequency of urination; Translations: [Frequency [...] Translations: [Overweight (BMI 25.0-29.9)] Onset: 08-24-2022 Episodic Other screening for suspected conditions (not mental disorders or infectious disease) (5 sources) Patient encounter status; Translations: [Encounter for screening mammogram for malignant neoplasm of breast] Onset: 03-09-2023 Episodic Residual codes; unclassified (20 sources) Family history of osteoporosis; Translations: [Family [...] Date Time Vital Sign Value Performing Clinician Laine litjes 06-17-2023 13:59-0500 Body temperature 98.2 [degF] Patel Gabriel APRN.AWS DEVELOPER Work Phone: [facility] 06-17-2023 13:59-0500 Body weight 72.12 kg Patel Gabriel APRN.AWS DEVELOPER Work Phone: [facility] 06-17-2023 13:59-0500 Diastolic blood pressure 85 mm[Hg] Patel Gabriel APRN.AWS DEVELOPER Work Phone: [facility] 06-17-2023 13:59-0500 Heart rate 92 /min Patel Gabriel APRN.AWS DEVELOPER Work Phone: [facility] 06-17-2023 13:59-0500 Respiratory rate 18 /min Patel Gabriel APRN.AWS DEVELOPER Work Phone: [facility] 06-17-2023 13:59-0500 SaO2% (BldA) [Mass fraction] 99 % Patel Gabriel APRN.AWS DEVELOPER Work Phone: [facility] 06-17-2023 13:59-0500 Systolic blood pressure 155 mm[Hg] Patel Gabriel APRN.AWS DEVELOPER Work Phone: [facility] 06-02-2023 11:37-0500 Body temperature 97.81 [degF] Nancy Bennett APRN.AWS DEVELOPER Work Phone: [facility] 06-02-2023 11:37-0500 Body weight 71.58 kg Nancy Bennett APRN.AWS DEVELOPER Work Phone: [facility] 06-02-2023 11:37-0500 Diastolic blood pressure 82 mm[Hg] Nancy Bennett DOMESTIC TECHNICIAN.AWS DEVELOPER Work Phone: [facility] 06-02-2023 11:37-0500 Heart rate 81 /min Nancy Bennett DOMESTIC TECHNICIAN.AWS DEVELOPER Work Phone: [facility] 06-02-2023 11:37-0500 Respiratory rate 19 /min Nancy Bennett DOMESTIC TECHNICIAN.AWS DEVELOPER Work Phone: [facility] 06-02-2023 11:37-0500 SaO2% (BldA) [Mass fraction] 97 % Nancy Bennett DOMESTIC TECHNICIAN.AWS DEVELOPER Work Phone: [facility] 06-02-2023 11:37-0500 Systolic blood pressure 110 mm[Hg] Nancy Bennett DOMESTIC TECHNICIAN.AWS DEVELOPER Work Phone: [facility] 12-14-2022 09:37-0400 Body weight 71.76 kg Ramez Sanchez MD Work Phone: [facility] 12-14-2022 09:37-0400 Diastolic blood pressure 76 mm[Hg] Ramez Sanchez MD Work Phone: [facility] 12-14-2022 09:37-0400 Heart rate 74 /min Ramez Sanchez MD Work Phone: [facility] 12-14-2022 09:37-0400 Respiratory rate 16 /min Ramez Sanchez MD Work Phone: [facility] 12-14-2022 09:37-0400 SaO2% (BldA) [Mass fraction] 100 % Ramez Sanchez MD Work Phone: [facility] 12-14-2022 09:37-0400 Systolic blood pressure 112 mm[Hg] Ramez Sanchez MD Work Phone: [facility] 10-13-2022 10:41-0400 Body temperature 97.59 [degF] Ramez Sanchez MD Work Phone: [facility] 10-13-2022 10:41-0400 Diastolic blood pressure 70 mm[Hg] Ramez Sanchez MD Work Phone: [facility] 10-13-2022 10:41-0400 Heart rate 66 /min Ramez Sanchez MD Work Phone: [facility] 10-13-2022 10:41-0400 Respiratory rate 16 /min Ramez Sanchez MD Work Phone: [facility] 10-13-2022 10:41-0400 SaO2% (BldA) [Mass fraction] 98 % Ramez Sanchez MD Work Phone: [facility] 10-13-2022 10:41-0400 Systolic blood pressure 110 mm[Hg] Ramez Sanchez MD Work Phone: [facility] 10-02-2022 15:28-0400 Body temperature 99.7 [degF] Reji Lafleur MD Work Phone: [facility] 10-02-2022 15:28-0400 Body weight 70.58 kg Reji Lafleur MD Work Phone: [facility] 10-02-2022 15:28-0400 Diastolic blood pressure 94 mm[Hg] Reji Lafleur MD Work Phone: [facility] 10-02-2022 15:28-0400 Heart rate 92 /min Reji Lafleur MD Work Phone: [facility] 10-02-2022 15:28-0400 Respiratory rate 18 /min Reji Lafleur MD Work Phone: [facility] 10-02-2022 15:28-0400 SaO2% (BldA) [Mass fraction] 98 % Reji Lafleur MD Work Phone: [facility] 06-16-2023 15:28-0400 Systolic blood pressure 130 mm[Hg] Reji Lafleur MD Work Phone: [facility] 09-21-2022 13:43-0400 Body temperature 96.91 [degF] Maggi Praisler-Wood DOMESTIC TECHNICIAN.AWS DEVELOPER Work Phone: [facility] 09-21-2022 13:43-0400 Body weight 71.67 kg Maggi Praisler-Wood DOMESTIC TECHNICIAN.AWS DEVELOPER Work Phone: [facility] 09-21-2022 13:43-0400 Diastolic blood pressure 72 mm[Hg] Maggi Praisler-Wood DOMESTIC TECHNICIAN.AWS DEVELOPER Work Phone: [facility] 09-21-2022 13:43-0400 Heart rate 80 /min Maggi Praisler-Wood DOMESTIC TECHNICIAN.AWS DEVELOPER Work Phone: [facility] 09-21-2022 13:43-0400 Respiratory rate 16 /min Maggi Praisler-Wood DOMESTIC TECHNICIAN.AWS DEVELOPER Work Phone: [facility] 09-21-2022 13:43-0400 SaO2% (BldA) [Mass fraction] 95 % Maggi Praisler-Wood DOMESTIC TECHNICIAN.AWS DEVELOPER Work Phone: [facility] 09-21-2022 13:43-0400 Systolic blood pressure 122 mm[Hg] Maggi Praisler-Wood DOMESTIC TECHNICIAN.AWS DEVELOPER Work Phone: [facility] 06-19-2022 11:41-0500 Body temperature 98.1 [degF] Jazmyne Tannhof DOMESTIC TECHNICIAN.AWS DEVELOPER Work Phone: [facility] 06-19-2022 11:41-0500 Body weight 69.4 kg Jazmyne Tannhof DOMESTIC TECHNICIAN.AWS DEVELOPER Work Phone: [facility] 06-19-2022 11:41-0500 Diastolic blood pressure 88 mm[Hg] Jazmyne Tannhof DOMESTIC TECHNICIAN.AWS DEVELOPER Work Phone: [facility] 06-19-2022 11:41-0500 Heart rate 82 /min Jazmyne Tannhof DOMESTIC TECHNICIAN.AWS DEVELOPER Work Phone: [facility] 06-19-2022 11:41-0500 Respiratory rate 16 /min Jazmyne Tannhof DOMESTIC TECHNICIAN.AWS DEVELOPER Work Phone: [facility] 06-19-2022 11:41-0500 SaO2% (BldA) [Mass fraction] 96 % Jazmyne Tannhof DOMESTIC TECHNICIAN.AWS DEVELOPER Work Phone: [facility] 06-19-2022 11:41-0500 Systolic blood pressure 120 mm[Hg] Jazmyne Tannhof DOMESTIC TECHNICIAN.AWS DEVELOPER Work Phone: [facility] 04-27-2022 15:06-0500 Body temperature 97.81 [degF] Cynthia Podlogar DOMESTIC TECHNICIAN.AWS DEVELOPER Work Phone: [facility] 04-27-2022 15:06-0500 Body weight 70.22 kg Cynthia Podlogar DOMESTIC TECHNICIAN.AWS DEVELOPER Work Phone: [facility] 04-27-2022 15:06-0500 Diastolic blood pressure 68 mm[Hg] Cynthia Podlogar DOMESTIC TECHNICIAN.AWS DEVELOPER Work Phone: [facility] 04-27-2022 15:06-0500 Heart rate 81 /min Cynthia Podlogar DOMESTIC TECHNICIAN.AWS DEVELOPER Work Phone: [facility] 04-27-2022 15:06-0500 Respiratory rate 20 /min Cynthia Podlogar DOMESTIC TECHNICIAN.AWS DEVELOPER Work Phone: [facility] 04-27-2022 15:06-0500 SaO2% (BldA) [Mass fraction] 99 % Cynthia Podlogar DOMESTIC TECHNICIAN.AWS DEVELOPER Work Phone: [facility] 04-27-2022 15:06-0500 Systolic blood pressure 126 mm[Hg] Cynthia Podlogar DOMESTIC TECHNICIAN.AWS DEVELOPER Work Phone: [facility] 03-23-2022 15:16-0500 Body weight 69.4 kg Miky Urbano MD Work Phone: [facility] 03-23-2022 15:16-0500 Diastolic blood pressure 82 mm[Hg] Miky Urbano MD Work Phone: [facility] 03-23-2022 15:16-0500 Systolic blood pressure 122 mm[Hg] Miky Urbano MD Work Phone: [facility] 03-03-2022 14:01-0500 Body height 158.8 cm Miky Urbano MD Work Phone: [facility] 03-03-2022 14:01-0500 Body weight 68.49 kg Miky Urbano MD Work Phone: [facility] 03-03-2022 14:01-0500 Diastolic blood pressure 78 mm[Hg] Miky Urbano MD Work Phone: [facility] 03-03-2022 14:01-0500 Systolic blood pressure 116 mm[Hg] Miky Urbano MD Work Phone: [facility] 02-11-2022 14:42-0400 Body weight 69.31 kg Cynthia Podlogar DOMESTIC TECHNICIAN.AWS DEVELOPER Work Phone: [facility] 02-11-2022 14:42-0400 Diastolic blood pressure 84 mm[Hg] Cynthia Podlogar DOMESTIC TECHNICIAN.AWS DEVELOPER Work Phone: [facility] 02-11-2022 14:42-0400 Heart rate 69 /min Cynthia Podlogar DOMESTIC TECHNICIAN.AWS DEVELOPER Work Phone: [facility] 02-11-2022 14:42-0400 Respiratory rate 16 /min Cynthia Podlogar DOMESTIC TECHNICIAN.AWS DEVELOPER Work Phone: [facility] 02-11-2022 14:42-0400 SaO2% (BldA) [Mass fraction] 96 % Cynthia Podlogar DOMESTIC TECHNICIAN.AWS DEVELOPER Work Phone: [facility] 02-11-2022 14:42-0400 Systolic blood pressure 122 mm[Hg] Cynthia Podlogar DOMESTIC TECHNICIAN.AWS DEVELOPER Work Phone: [facility] Encounters Encounter Date Encounter Type Care Provider Facility Start: 06-17-2023 End: 06-17-2023 ambulatory RAMEZ SANCHEZ Facility:[facility] Start: 06-17-2023 End: 06-17-2023 Patient encounter procedure Patel Gabriel DOMESTIC TECHNICIAN.AWS DEVELOPER Work Phone: [facility] Procedures Date Procedure Procedure Detail Performing Clinician Start: 06-17-2023 Urnls dip stick/tabl et rgnt auto w/o microscopy Nancy Bennett DOMESTIC TECHNICIAN.AWS DEVELOPER Work Phone: Start: 06-02-2023 Urnls dip stick/tabl et rgnt auto w/o microscopy Nancy Bennett DOMESTIC TECHNICIAN.AWS DEVELOPER Work Phone: Start: 12-14-2022 Lipid 1996 panel - S dilan or Plasma Screen Wstr Start: 10-13-2022 Urnls dip stick/tabl et rgnt auto w/o microscopy Ramez Sanchez MD Work Phone: Start: 10-13-2022 Urnls dip stick/tabl et rgnt auto w/o microscopy Ramez Sanchez MD Work Phone: Start: 10-02-2022 Urnls dip stick/tabl et rgnt auto w/o microscopy Nancy Bennett DOMESTIC TECHNICIAN.AWS DEVELOPER Work Phone: Start: 09-21-2022 COVID WITH FLUA+B, ROUTINE Maggi Taveras DOMESTIC TECHNICIAN.AWS DEVELOPER Work Phone: Start: 09-21-2022 STREP A MOLECULAR (POC) Jaquelin Schmid PA-C Work Phone: Start: 03-23-2022 INFLUENZA VACCINE QUADRIVALENT 6 MO - 64 YRS IM Miky Urbano MD Work Phone: Start: 03-23-2022 Urine test visual color cmprsn meths Miky Urbano MD Work Phone: Start: 03-05-2022 MINDI SCREENING W JEZ Co juanito Noble DOMESTIC TECHNICIAN.CNM Work Phone: Start: 03-05-2022 Mammography Mammograph y Coordinator Start: 02-19-2021 Mammography Cynthia dupree DOMESTIC TECHNICIAN.AWS DEVELOPER Work Phone: Start: 07-16-2017 Colonoscopy Cynthia dupree APRN.CNP Work Phone: Plan of Treatment Date Care Activity Detail Author Start: 03-09-2028 HPV Testing HPV Testing [facility] Start: 03-09-2028 Pap Testing Pap Testing [facility] Start: 03-09-2028 Screening for malign ant neoplasm of cervix [facility] Start: 12-15-2027 Lipid 1996 panel - S dilan or Plasma Lipid Screening [facility] Start: 12-15-2027 Lipid panel Lipid Screening [facility] Start: 12-15-2027 LIPID SCREEN LIPID SCREEN [facility] Start: 09-28-2027 Urine microalbumin profile [facility] Start: 07-17-2027 Colonoscopy COLONOSCOPY [facility] Start: 07-17-2027 COLORECTAL CANCER SCREENING COLORECTAL CANCER SCREENING [facility] Start: 07-17-2027 Screening for malign ant neoplasm of colon [facility] Start: 03-03-2027 HPV TESTING HPV TESTING [facility] Start: 03-03-2027 PAP TESTING PAP TESTING [facility] Start: 04-14-2026 LIPID SCREEN LIPID SCREEN [facility] Start: 03-07-2026 HPV TESTING HPV TESTING [facility] Start: 03-07-2026 PAP TESTING PAP TESTING [facility] Start: 12-14-2025 DIABETES SCREEN DIABETES SCREEN [facility] Start: 12-14-2025 Diabetes Screening Diabetes Screenin g [facility] Start: 06-19-2025 DIABETES SCREEN DIABETES SCREEN [facility] Start: 04-14-2024 DIABETES SCREEN DIABETES SCREEN [facility] Start: 03-09-2024 Mammography Mammogram Screening [facility] Start: 03-09-2024 Screening for malign ant neoplasm of breast Mammogram Screening [facility] Start: 12-15-2023 COVID-19 VACCINE (#1) COVID-19 VACCI NE (#1) [facility] Immunizations Immunization Date Immunization Notes Care Provider Dayana matos 03-23-2022 influenza, injectabl e, quadrivalent, contains preservative Miky Urbano MD Work Phone: [facility] 03-23-2022 influenza virus vacc ine, unspecified formulation Screen Wstr [facility] 03-19-2021 influenza, injectabl e, quadrivalent, contains preservative Cynthia Podlogar DOMESTIC TECHNICIAN.[facility] Work Phone: [facility] 02-18-2020 influenza, seasonal, injectable Cynthia Podlogar DOMESTIC TECHNICIAN.[facility] Work Phone: [facility] 02-17-2019 influenza, seasonal, injectable Cynthia Podlogar DOMESTIC TECHNICIAN.[facility] Work Phone: [facility] 01-26-2018 influenza, injectabl e, quadrivalent, preservative free Cynthia Podlogar DOMESTIC TECHNICIAN.[facility] Work Phone: [facility] Work Phone: 09-27-2017 tetanus toxoid, redu jasper diphtheria toxoid, and acellular pertussis vaccine, adsorbed Cynthia Podlogar DOMESTIC TECHNICIAN.[facility] Work Phone: [facility] 02-17-2011 influenza virus vacc ine, unspecified formulation Cynthia Podlogar DOMESTIC TECHNICIAN.[facility] Work Phone: [facility] 04-03-2009 novel Influenza-H1N1 -09, live virus for nasal administration Cynthia Podlogar DOMESTIC TECHNICIAN.[facility] Work Phone: [facility] Work Phone: 12-18-2002 influenza virus vacc ine, unspecified formulation Cynthia Podlogar DOMESTIC TECHNICIAN.[facility] Work Phone: [facility] 12-18-2002 influenza virus vacc ine, whole virus Cynthia Podlogar DOMESTIC TECHNICIAN.[facility] Work Phone: [facility] Work Phone: Payers Date Payer Category Payer Unknown [id number] 2022 Unknown [id number] 2011 Unknown [id number] 1965 Unknown [id number] 1965 Unknown [id number] Unknown [id number] Social History Date Type Detail Facility Start: 02-11-2022 Tobacco smoking stat us NHIS Never smoked tobacco [facility] Start: 02-11-2022 Tobacco use and exposure Smoke less tobacco non-user [facility] Start: 02-11-2022 End: 06-17-2023 Alcohol intake Current drinker of alcohol (finding) [facility] Start: 02-20-2020 End: 08-23-2022 History SDOH Alcohol Frequency 3 [facility] Start: 02-20-2020 End: 08-23-2022 History SDOH Alcohol Std Drinks 1 [facility] Start: 04-05-2014 Alcohol Comment [facility] Start: 1965 Sex Assigned At Not on file [facility] Start: 02-21-2022 End: 03-03-2022 Exposure to SARS-CoV-2 (event) Not sure [facility] Start: 08-23-2022 History SDOH Alcohol Std Drinks 2 [facility] Start: 08-23-2022 History SDOH Social Connections Phone 5 [facility] Start: 08-23-2022 History SDOH Physica l Activity DPW 4 [facility] Start: 08-23-2022 History SDOH Physica l Activity MPS 6 [facility] Start: 08-23-2022 End: 12-14-2022 History of Social function [facility] Start: 08-23-2022 End: 12-14-2022 Social connection and isolation panel [facility] Do you belong to any clubs or organizations such as nondenominational groups, unions, fraternal or athletic groups, or school groups? No [facility] Attends Club or Organization Meetings Not on file [facility] Are you now , , , , never or living with a partner? [facility] How often to you hav e a drink containing alcohol? 2-4 times a month [facility] How many standard dr inks containing alcohol do you have on a typical day? 3 or 4 [facility] How often do you hav e 6 or more drinks on 1 occasion? Monthly [facility] Do you feel stress - tense, restless, nervous, or anxious, or unable to sleep at night because your mind is troubled all the time - these days [OSQ] Not at all [facility] (I/We) worried wheth er (my/our) food would run out before (I/we) got money to buy more. Never true [facility] How many standard dr inks containing alcohol do you have on a typical day? 1 or 2 [facility] How often do you hav e 6 or more drinks on 1 occasion? Never [facility] How often do you hav e 6 or more drinks on 1 occasion? Monthly [facility] Clinical Notes 10-17-2018 to 06-17-2023 Patel Gabriel APRN.AWS DEVELOPER - 06/17/2023 2:16 PM Nancy Reese APRN.CNP - 06/02/2023 11:37 AM ESTTelephone Encounter - Lizette Urban LPN - 03/23/2023 10:16 AM EST Note Date & Type Note Facility 06-17-2023 Note HNO ID: [id number] Author: PATEL GABRIEL APRN.[facility]ICK Service: ? Author Type: Nurse Practitioner Type: Progress Notes Filed: 06/17/2023 14:20 Note Text: Subjective HPI HPI Carlene Baltazar is a 57 year old female who presents today for CC of burning after urination. This started 2.5 weeks ago, seen in [facility] rx for cephalexin ordered/taken all, states s/s improved buth still here. Mid low back pain as well, relieving with ibuprofen. 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 omeprazole (PRILOSEC) 20 mg capsule TAKE 1 CAPSULE DAILY BEFOREBREAKFAST; 1/2 HOUR BEFORE A MEAL MULTI-VITAMIN TAB .QD FAMILY HISTORY Problem Relation Age of Onset Thyroid Mother Osteoporosis Mother other (gerd) Mother Alcohol/Drug Father CIRRHOSIS Cancer Maternal Uncle Diabetes Paternal Grandmother Hypertension Paternal Grandmother Stroke Paternal Grandmother Diabetes Paternal Grandfather of [place] Diabetes Brother Alcohol/Drug Brother Social History Tobacco Use Smoking status: Never Smokeless tobacco: Never Vaping Use Vaping Use: Never used Substance Use Topics Alcohol use: Yes Alcohol/week: 3.0 standard drinks of alcohol Types: 3 Glasses of wine per week Comment: Occasionally Drug use: No Review of Systems Constitutional: Negative for chills, fever and weight loss. Respiratory: Negative for cough, shortness of breath and wheezing. Cardiovascular: Negative for chest pain and palpitations. Gastrointestinal: Negative for abdominal pain, blood in stool, constipation, diarrhea, heartburn, melena, nausea and vomiting. Genitourinary: Positive for dysuria. Negative for flank pain, frequency, hematuria and urgency. Musculoskeletal: Negative for myalgias. Objective Blood pressure 155/85, pulse 92, temperature 36.8 ?C (98.2 ?F), resp. rate 18, weight 72.1 kg (159 lb), last menstrual period 12/09/2014, SpO2 99%. Bp recheck 120/86 manual by provider. Physical Exam Constitutional: General: She is not in acute distress. Appearance: Normal appearance. She is not toxic-appearing. Cardiovascular: Rate and Rhythm: Normal rate and regular rhythm. Heart sounds: Normal heart sounds. Pulmonary: Effort: Pulmonary effort is normal. Breath sounds: Normal breath sounds. Abdominal: General: Bowel sounds are normal. Palpations: Abdomen is soft. There is no hepatomegaly or splenomegaly. Tenderness: There is no abdominal tenderness. Musculoskeletal: Arms: Skin: General: Skin is warm and dry. ASSESSMENT/PLAN: 1. Pain with urination - ICD9: 788.1, ICD10: R30.9 acute - UA negative - Send urine for culture -no treatment today, treat per culture If culture negative see music promoter. - UA DIP, URINE (POC) - URINE CULTURE Patel Gabriel APRN.[facility] 06-17-2023 History of Presen t illness Narrative Images from the original note were not included. Subjective HPI HPI Carlene Baltazar is a 57 year old female who presents today for CC of burning after urination. This started 2.5 weeks ago, seen in [facility] rx for cephalexin ordered/taken all, states s/s improved buth still here. Mid low back pain as well, relieving with ibuprofen. 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 omeprazole (PRILOSEC) 20 mg capsule TAKE 1 CAPSULE DAILY BEFOREBREAKFAST; 1/2 HOUR BEFORE A MEAL MULTI-VITAMIN TAB .QD FAMILY HISTORY Problem Relation Age of Onset Thyroid Mother Osteoporosis Mother other (gerd) Mother Alcohol/Drug Father CIRRHOSIS Cancer Maternal Uncle Diabetes Paternal Grandmother Hypertension Paternal Grandmother Stroke Paternal Grandmother Diabetes Paternal Grandfather of [place] Diabetes Brother Alcohol/Drug Brother Social History Tobacco Use Smoking status: Never Smokeless tobacco: Never Vaping Use Vaping Use: Never used Substance Use Topics Alcohol use: Yes Alcohol/week: 3.0 standard drinks of alcohol Types: 3 Glasses of wine per week Comment: Occasionally Drug use: No Review of Systems Constitutional: Negative for chills, fever and weight loss. Respiratory: Negative for cough, shortness of breath and wheezing. Cardiovascular: Negative for chest pain and palpitations. Gastrointestinal: Negative for abdominal pain, blood in stool, constipation, diarrhea, heartburn, melena, nausea and vomiting. Genitourinary: Positive for dysuria. Negative for flank pain, frequency, hematuria and urgency. Musculoskeletal: Negative for myalgias. Objective Blood pressure 155/85, pulse 92, temperature 36.8 C (98.2 F), resp. rate 18, weight 72.1 kg (159 lb), last menstrual period 12/09/2014, SpO2 99%. Bp recheck 120/86 manual by provider. Physical Exam Constitutional: General: She is not in acute distress. Appearance: Normal appearance. She is not toxic-appearing. Cardiovascular: Rate and Rhythm: Normal rate and regular rhythm. Heart sounds: Normal heart sounds. Pulmonary: Effort: Pulmonary effort is normal. Breath sounds: Normal breath sounds. Abdominal: General: Bowel sounds are normal. Palpations: Abdomen is soft. There is no hepatomegaly or splenomegaly. Tenderness: There is no abdominal tenderness. Musculoskeletal: Arms: Skin: General: Skin is warm and dry. ASSESSMENT/PLAN: 1. Pain with urination - ICD9: 788.1, ICD10: R30.9 acute - UA negative - Send urine for culture -no treatment today, treat per culture If culture negative see music promoter. - UA DIP, URINE (POC) - URINE CULTURE Patel Gabriel APRN.AWS DEVELOPER documented in this encounter [facility] 06-02-2023 Note HNO ID: [id number] Author: NANCY BENNETT APRN.AWS DEVELOPER Service: ? 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 Nancy Bennett APRN.[facility] 06-02-2023 History of Presen t illness Narrative [...] reviewed and updated as able. PHYSICAL EXAM: [facility] 12/09/2014 General: Well appearing and alert CV: Regular rate and rhythm without obvious murmur Lungs: clear to auscultation bilaterally Back: straight and symmetric Abdomen: soft, nontender, nondistended PAST MEDICAL HISTORY Diagnosis Date Arthritis of left hip 08/20/2015 Basosquamous carcinoma of skin Removed 08/2021-[facility] [place] [facility] Carpal tunnel syndrome Right Cervical high [...] Stroke Paternal Grandmother Diabetes Paternal Grandfather of [place] Diabetes Brother Alcohol/Drug Brother Social History Tobacco [...] Nancy Bennett APRN.CHADWICK documented in this encounter [facility] 03-31-2023 Note HNO ID: [id number] Author: Miky Urbano MD Service: ? Author Type: Physician Type: Progress Notes Filed: 03/31/2023 4:17 PM Note Text: Picker/Puller offered: Patient accepts, visit chaperoned by Elisa [...] as lesion is small. Miky Urbano MD [facility] 03-23-2023 Miscellaneous Notes Pt notified and appointment scheduled. Lizette Urban LPN ----- Message from Miky Urbano MD sent at 03/23/2023 10:03 AM EST ----- Please schedule colp. w/ me. Mychart message sent. documented in this encounter [facility] 03-09-2023 Note HNO ID: [id number] Author: Miky Urbano MD Service: ? Author [...] L3 SAB0 IAB0 Ectopic0 Multiple0 Live Births0 Template Cutter History LMP: 12/09/2014, Postmenopausal Age at Menarche: Age at First : Age at Menopause: Template Cutter History Comments: Sexual Activity: Yes; Male; ESSURE procedure Contraception: Surgical PAST MEDICAL HISTORY Diagnosis Date Arthritis of left hip 08/20/2015 Basosquamous carcinoma of skin Removed 08/2021-[facility] [place] [facility] Carpal tunnel syndrome Right Cervical high [...] Stroke Paternal Grandmother Diabetes Paternal Grandfather of [place] Diabetes Brother Alcohol/Drug Brother SOCIAL HISTORY Social [...] external genitalia normal, normal Bartholin's glands, urethra, Midland's glands, no vulvar lesions, no cervical lesions, [...] or sooner as needed Miky Urbano MD [facility] 03-09-2023 Note HNO ID: [id number] Author: Joe Vizcaino Mammo Tech Service: ? [...] PERIPHERAL IV DATA: Not applicable SIGNED BY: Joe Vizcaino [employer] March 09, 2023 1:26 PM [facility] documented in this encounter [facility]08-28-2023 NoteHNO ID: [id number] Author: Ramez Sanhcez MD Service: ? 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 Peripheral Pulses: Pulses: radial=4/4,dorsalis pedis=4/4, [...] DIFFERENTIATION Ramez Sanchez MD [facility] Miscellaneous Notes* Telephone Encounter - Van Tony Rebekah - 10/29/2022 8:40 AM EDT Patient has been identified by name and date of : Yes Requested Prescriptions Pending Prescriptions Disp Refills omeprazole (PRILOSEC) 20 mg capsule 90 capsule 1 Sig: TAKE 1 CAPSULE DAILY BEFOREBREAKFAST; 1/2 HOUR BEFORE A MEAL AR[facility]-10/13/22 Labs-06/19/22 NOV-12/14/22 RX INSTRUCTIONS: Patient aware RX will be sent to pharmacy. No need to notify patient. Rebekah Van Pss documented [facility]06-[facility]-2023 NoteHNO ID: [id number] Author: Ramez Sanchez MD Service: ? Author [...] Stroke Paternal Grandmother Diabetes Paternal Grandfather of [place] Diabetes Brother Alcohol/Drug Brother Patient Allergies ALLERGIES [...] Resolved with abx. Repea (more content not included)...[facility]06-27-2023 History of Present illness Narrative* Ramez [...] Stroke Paternal Grandmother Diabetes Paternal Grandfather of [place] Diabetes Brother Alcohol/Drug Brother Patient Allergies ALLERGIES [...] symptoms. Ramez Sanchez MD documented [facility] encounter[facility]06-[facility]-2023 Miscellaneous Notes* Telephone Encounter - Ziggy [...] Please advise. Thank you. documented in this encounterOhio [facility]06-16-2023 NoteHNO ID: [id number] Author: Reji Lafleur MD Service: ? Author [...] viral URI also. Continue allergy medication. Reji Lafleur, [facility]06-16-2023 History of Present illness Narrative* Reji Lafleur [...] medication. Reji Lafleur MD documented in this encounterOhio [facility]06-05-2023 NoteHNO ID: [id number] Author: Maggi Taveras APRN.AWS DEVELOPER Service: ? Author Type: Nurse Practitioner Type: Progress Notes Filed: 09/21/2022 2:42 PM Note Text: Subjective Cough Associated symptoms include sore throat. Pertinent negatives include no chills, no ear pain, no headaches and no myalgias. Carlene Baltazar is a 57 year old female who presents with a cough, sore throat and fatigue since yesterday. She returned from a trip to [place] yesterday and was on planes and in [...] Stroke Paternal Grandmother Diabetes Paternal Grandfather of [place] Diabetes Brother Alcohol/Drug Brother Social History Tobacco [...] Discussed expected course of illness Maggi Taveras APRN.[facility]PM[facility]06[facility]23 Instructions* Patient Instructions* Maggi Taveras APRN.AWS DEVELOPER - 09/21/2022 2:07 PM EDT ASSESSMENT/PLAN: 1. [...] Discussed expected course of illness Maggi Taveras APRN.AWS DEVELOPER Treatment for Viral Upper Respiratory Tract Infections [...] fluids help open respiratory and sinus passages [place] [facility] [place] may offer relief of nasal and head [...] worse rather than better documented in this encounterOhio [facility]06-[facility]23 History of Present illness Narrative* Maggi Taveras APRN.CHADWICK - 09/21/2022 2:06 PM EDT Subjective Cough Associated symptoms include sore throat. Pertinent negatives include no chills, no ear pain, no headaches and no myalgias. Carlene Baltazar is a 57 year old female who presents with a cough, sore throat and fatigue since yesterday. She returned from a trip to [place] yesterday and [place]. She has not had any known [...] Wt 71.7 kg (158 lb) LMP 12/09/2014 [id number]% BMI 28.44 kg/m PAST MEDICAL HISTORY Diagnosis [...] Stroke Paternal Grandmother Diabetes Paternal Grandfather of [place] Diabetes Brother Alcohol/Drug Brother Social History Tobacco [...] Discussed expected course of illness Maggi Taveras APRN.AWS DEVELOPER documented in this encounterOhio [facility]05-08-2023 NoteHNO ID: [id number] Author: Cynthia Rubio APRN.AWS DEVELOPER Service: ? Author Type: Nurse Practitioner Type: [...] % EYE DROPS - would recommend seeing associate professor of library science if not improving 2. Overweight (BMI 25.0-29.9) [...] as well. - follow-up as needed Cynthia DavenportlogYADI moscoso Prescription instructions reviewed with patient as applicable. [...] which included preparing to see the patient, [id number] patient care, completing clinical documentation, obtaining and/or reviewing separately obtained history, performing a medically appropriate examination, counseling and educating the patient/family/caregiver, and ordering medications, tests, or procedures. .[facility]03-10-2023 Miscellaneous Notes* Telephone Encounter - Paola Hagan Ma - 06/26/2022 2:39 PM EST Provider message sent to pt via tvCompass. Paola Hagan Ma * Telephone Encounter - Mellisa Buck Ma - 06/22/2022 9:19 AM EST [employer] message sent to pt notifying her of [...] you. Jazmyne Pineda APRN.CNP documented in this encounterOhio [facility]03-03-2023 NoteHNO ID: [id number] Author: Jazmyne Pineda APRN.CNP Service: ? Author [...] over. worst on feet Patient of Dr. Sancehz here in the office for pins and [...] Stroke Paternal Grandmother Diabetes Paternal Grandfather of [place] Diabetes Brother Alcohol/Drug Brother Social History Tobacco [...] or sooner as needed. (more content not included)...[facility]03-03-2023 Instructions * Patient Instructions* Jazmyne Pineda APRN.CNP - 06/19/2022 11:59 AM EST Get labs completed today. Stop taking new supplement today. Rest from exercise over the weekend. Stay well hydrated. Follow up pending test results or sooner as needed. documented in this encounterOhio Valley Hospital03-03-2023 History of Present illness Narrative* Jazmyne [...] Stroke Paternal Grandmother Diabetes Paternal Grandfather of [place] Diabetes Brother Alcohol/Drug Brother Social History Tobacco [...] APRN.CHADWICK This note was partially generated using [employer] recognition system. Note was reviewed for accuracy. There may be minor misspellings or grammar miscues with [employer] voice recognition. documented in this encounterOhio Valley Hospital02-13-2023 Miscellaneous Notes* Telephone Encounter - Paola Hagan Ma - 06/01/2022 5:12 PM EST Last office visit: 04/27/22 F/u scheduled: none Paola Hagan Ma * Telephone Encounter - Mayra Peterson Pss - 06/01/2022 4:00 PM EST Patient has been identified by name and date of : Yes Requested Prescriptions Pending Prescriptions Disp Refills omeprazole (PRILOSEC) 20 mg capsule 90 capsule 1 Sig: TAKE 1 CAPSULE DAILY BEFOREBREAKFAST; 1/2 HOUR BEFORE A MEAL RX INSTRUCTIONS: Patient aware RX escripted to mail away pharmacy. No need to notify patient. Mayra Peterson Pss documented in this encounterOhio [facility] Hospital01-10-2023 Miscellaneous Notes* Telephone Encounter - Angelic Nickerson RN - 04/28/2022 8:19 AM EST Pt notified. Angelic Nickerson RN * Telephone Encounter - Cynthia Rubio APRN.CNP - 04/28/2022 7:49 AM EST Please call patient and let her know her COVID-19 and influenza testing are negative. Cynthia Rubio APRN.CNP documented in this encounterOhio [facility] Hospital01-09-2023 History of Present illness Narrative* Cynthia [...] had cough, sore throat and nasal congestion [place] winded after walking to mailbox. Also admits [...] patient she sees dermatology at [facility] Cynthia Podlogar, DOMESTIC TECHNICIAN.AWS DEVELOPER Prescription instructions reviewed with patient as applicable. [...] which included preparing to see the patient, [id number] patient care, completing clinical documentation, obtaining and/or reviewing separately obtained history, performing a medically appropriate examination, counseling and educating the pat ient/family/caregiver, and ordering medications, tests, or procedures. documented in this encounterOhio Valley Hospital01-09-2023 Miscellaneous Notes* Telephone Encounter - Cynthia [...] chest pain. Protocols used: Cough - Acute [id number]-DQ documented in this encounterOhio Valley Hospital12-05-2022 Instructions* Patient Instructions* Jaxson Argueta Ma - 03/23/2022 3:06 PM EST YOUR RECOVERY [...] contact your doctor's office. documented in this encounterOhio Valley Hospital12-05-2022 History of Present illness Narrative* Miky [...] patient. Miky Urbano MD documented in this encounterOhio Valley Hospital11-17-2022 Miscellaneous Notes* Letter - Mammography Coordinator - 03/05/2022 10:59 AM EST March 05, 2022 PID: [id number] Carlene Baltazar [phone] [place] [address] Dear Ms. Baltazar, We are pleased to [...] report will be [facility] as part of your permanent medical record and are available for your continuing care. Thank you for allowing us to help in meeting your health care needs. Sincerely, Dr. Roach Interpreting Radiologist [facility] (Normal over 40) documented in this encounterOhio Valley Hospital11-17-2022 History of Present illness Narrative* Sita [...] 05, 2022 7:55 AM documented in this encounterOhio Valley Hospital11-15-2022 Miscellaneous Notes* Addendum Note - Jaxson Argueta Ma - 03/03/2022 2:50 PM ESTAddended by: JAXSON ARGUETA MA on: 03/03/2022 02:50 PM Modules accepted: Orders * Addendum Note - Jaxson Argueta Ma - 03/03/2022 2:49 PM ESTAddended by: JAXSON ARGUETA MA on: 03/03/2022 02:49 PM Modules accepted: Orders documented in this encounterOhio Valley Hospital11-15-2022 History of Present illness Narrative* Miky Urbano MD - 03/03/2022 1:53 PM EST Carlene is a 56 year old who presents for an annual gynecologic exam without steel grinder c/o. Pt reports burning/aching pain for 6 months since removal of a skin cancer to her left anterior shoulder by her human projectile. She indicates this has gotten worse in the past 1-2 months. She has goneback to the human projectile and told her family doctor about this [...] L3 SAB0 IAB0 Ectopic0 Multiple0 Live Births0 Template Cutter History LMP: 04/13/2015 (Exact Date), Postmenopausal Age at Menarche: Age at First : Age at Menopause: Template Cutter History Comments: Sexual Activity: Yes; Male; ESSURE [...] Stroke Paternal Grandmother Diabetes Paternal Grandfather of [place] Diabetes Brother Alcohol/Drug Brother SOCIAL HISTORY Social [...] external genitalia normal, normal Bartholin's glands, urethra, Midland's glands, no vulvar lesions, no cervical lesions, [...] needed Miky Urbano MD documented in this encounterOhio Valley Hospital10-26-2022 History of Present illness Narrative* Cynthia Rubio, DOMESTIC TECHNICIAN.AWS DEVELOPER - 02/11/2022 2:45 PM EDT 02/11/2022 Patient [...] which included preparing to see the patient, [id number] patient care, completing clinical documentation, obtaining and/or reviewing separately obtained history, performing a medically appropriate examination, and counseling and educating the patient/family/caregiver. documented in this encounterOhio Valley Hospital07-01-2019 History of Past illness Narrative* Problem Noted Date Resolved Date Plantar fasciitis 10/17/2018 02/20/2020 Piriformis syndrome of left side 08/20/2015 04/17/2019 Irregular menstrual cycle 12/11/20102013 Dysmenorrhea 12/11/2010 04/05/2014 Symptomatic menopausal or female climacteric sta john 12/11/2010 02/20/2020 Hyperlipidemia LDL goal <130 11/20/2004 Palpitations 11/20/2004 04/17/2019 documented as of this encounter (statuses as of 02/11/2022) [facility] Narrative* Problem Noted Date Resolved Date Plantar fasciitis 10/17/2018 02/20/2020 Piriformis syndrome of left side 08/20/2015 04/17/2019 Irregular menstrual cycle 12/11/20102013 Dysmenorrhea 12/11/2010 04/05/2014 Symptomatic menopausal or female climacteric sta john 12/11/2010 02/20/2020 Hyperlipidemia LDL goal <130 11/20/2004 Palpitations 11/20/2004 04/17/2019 documented as of this encounter (statuses as of 03/03/2022) [facility] Narrative* Problem Noted Date Resolved Date Plantar fasciitis 10/17/2018 02/20/2020 Piriformis syndrome of left side 08/20/2015 04/17/2019 Irregular menstrual cycle 12/11/20102013 Dysmenorrhea 12/11/2010 04/05/2014 Symptomatic menopausal or female climacteric sta john 12/11/2010 02/20/2020 Hyperlipidemia LDL goal <130 11/20/2004 Palpitations 11/20/2004 04/17/2019 documented as of this encounter (statuses as of 03/07/2022) [facility] Narrative* Problem Noted Date Resolved Date Plantar fasciitis 10/17/2018 02/20/2020 Piriformis syndrome of left side 08/20/2015 04/17/2019 Irregular menstrual cycle 12/11/20102013 Dysmenorrhea 12/11/2010 04/05/2014 Symptomatic menopausal or female climacteric sta john 12/11/2010 02/20/2020 Hyperlipidemia LDL goal <130 11/20/2004 Palpitations 11/20/2004 04/17/2019 documented as of this encounter (statuses as of 03/23/2022) [facility] Narrative* Problem Noted Date Resolved Date Plantar fasciitis 10/17/2018 02/20/2020 Piriformis syndrome of left side 08/20/2015 04/17/2019 Irregular menstrual cycle 12/11/20102013 Dysmenorrhea 12/11/2010 04/05/2014 Symptomatic menopausal or female climacteric sta john 12/11/2010 02/20/2020 Hyperlipidemia LDL goal <130 11/20/2004 Palpitations 11/20/2004 04/17/2019 documented as of this encounter (statuses as of 04/27/2022) [facility] N[facility]ative* Problem Noted Date Resolved Date Plantar fasciitis 10/17/2018 02/20/2020 Piriformis syndrome of left side 08/20/2015 04/17/2019 Irregular menstrual cycle 12/11/20102013 Dysmenorrhea 12/11/2010 04/05/2014 Symptomatic menopausal or female climacteric sta john 12/11/2010 02/20/2020 Hyperlipidemia LDL goal <130 11/20/2004 Palpitations 11/20/2004 04/17/2019 documented as of this encounter (statuses as of 04/27/2022) [facility]ative* Problem Noted Date Resolved Date Plantar fasciitis 10/17/2018 02/20/2020 Piriformis syndrome of left side 08/20/2015 04/17/2019 Irregular menstrual cycle 12/11/20102013 Dysmenorrhea 12/11/2010 04/05/2014 Symptomatic menopausal or female climacteric sta john 12/11/2010 02/20/2020 Hyperlipidemia LDL goal <130 11/20/2004 Palpitations 11/20/2004 04/17/2019 documented as of this encounter (statuses as of 04/28/2022) [facility]* Problem Noted Date Resolved Date Plantar fasciitis 10/17/2018 02/20/2020 Piriformis syndrome of left side 08/20/2015 04/17/2019 Irregular menstrual cycle 12/11/20102013 Dysmenorrhea 12/11/2010 04/05/2014 Symptomatic menopausal or female climacteric sta john 12/11/2010 02/20/2020 Hyperlipidemia LDL goal <130 11/20/2004 Palpitations 11/20/2004 04/17/2019 documented as of this encounter (statuses as of 06/02/2022) [facility]* Problem Noted Date Resolved Date Plantar fasciitis 10/17/2018 02/20/2020 Piriformis syndrome of left side 08/20/2015 04/17/2019 Irregular menstrual cycle 12/11/20102013 Dysmenorrhea 12/11/2010 04/05/2014 Symptomatic menopausal or female climacteric sta john 12/11/2010 02/20/2020 Hyperlipidemia LDL goal <130 11/20/2004 Palpitations 11/20/2004 04/17/2019 documented as of this encounter (statuses as of 06/19/2022) [facility]* Problem Noted Date Resolved Date Plantar fasciitis 10/17/2018 02/20/2020 Piriformis syndrome of left side 08/20/2015 04/17/2019 Irregular menstrual cycle 12/11/20102013 Dysmenorrhea 12/11/2010 04/05/2014 Symptomatic menopausal or female climacteric sta john 12/11/2010 02/20/2020 Hyperlipidemia LDL goal <130 11/20/2004 Palpitations 11/20/2004 04/17/2019 documented as of this encounter (statuses as of 06/26/2022) [facility]* Problem Noted Date Resolved Date Plantar fasciitis 10/17/2018 02/20/2020 Piriformis syndrome of left side 08/20/2015 04/17/2019 Irregular menstrual cycle 12/11/20102013 Dysmenorrhea 12/11/2010 04/05/2014 Symptomatic menopausal or female climacteric sta john 12/11/2010 02/20/2020 Hyperlipidemia LDL goal <130 11/20/2004 Palpitations 11/20/2004 04/17/2019 documented as of this encounter (statuses as of 09/22/2022) [facility]* Problem Noted Date Resolved Date Plantar fasciitis 10/17/2018 02/20/2020 Piriformis syndrome of left side 08/20/2015 04/17/2019 Irregular menstrual cycle 12/11/20102013 Dysmenorrhea 12/11/2010 04/05/2014 Symptomatic menopausal or female climacteric sta john 12/11/2010 02/20/2020 Hyperlipidemia LDL goal <130 11/20/2004 Palpitations 11/20/2004 04/17/2019 documented as of this encounter (statuses as of 10/02/2022) [facility]* Problem Noted Date Resolved Date Plantar fasciitis 10/17/2018 02/20/2020 Piriformis syndrome of left side 08/20/2015 04/17/2019 Irregular menstrual cycle 12/11/20102013 Dysmenorrhea 12/11/2010 04/05/2014 Symptomatic menopausal or female climacteric sta john 12/11/2010 02/20/2020 Hyperlipidemia LDL goal <130 11/20/2004 Palpitations 11/20/2004 04/17/2019 documented as of this encounter (statuses as of 10/13/2022) [facility]* Problem Noted Date Resolved Date Plantar fasciitis 10/17/2018 02/20/2020 Piriformis syndrome of left side 08/20/2015 04/17/2019 Irregular menstrual cycle 12/11/20102013 Dysmenorrhea 12/11/2010 04/05/2014 Symptomatic menopausal or female climacteric sta john 12/11/2010 02/20/2020 Hyperlipidemia LDL goal <130 11/20/2004 Palpitations 11/20/2004 04/17/2019 documented as of this encounter (statuses as of 10/13/2022) [facility]* Problem Noted Date Diagnosed Date Resolved Date Plantar fasciitis 10/17/2018 02/20/2020 Piriformis syndrome of left side 08/20/2015 04/17/2019 Irregular menstrual cycle 12/11/2010 Dysmenorrhea 12/11/2010 04/05/2014 Symptomatic menopausal or fe male climacteric states 12/11/2010 02/20/2020 Hyperlipidemia LDL goal <130 11/20/2004 04/17/2019 Palpitations 11/20/2004 04/17/2019 documented as of this encounter (statuses as of 10/30/2022) [facility]* Problem Noted Date Diagnosed Date Resolved Date Plantar fasciitis 10/17/2018 02/20/2020 Piriformis syndrome of left side 08/20/2015 04/17/2019 Irregular menstrual cycle 12/11/2010 Dysmenorrhea 12/11/2010 04/05/2014 Symptomatic menopausal or fe male climacteric states 12/11/2010 02/20/2020 Hyperlipidemia LDL goal <130 11/20/2004 04/17/2019 Palpitations 11/20/2004 04/17/2019 documented as of this encounter (statuses as of 12/14/2022) [facility]* Problem Noted Date Diagnosed Date Resolved Date Plantar fasciitis 10/17/2018 02/20/2020 Piriformis syndrome of left side 08/20/2015 04/17/2019 Irregular menstrual cycle 12/11/2010 Dysmenorrhea 12/11/2010 04/05/2014 Symptomatic menopausal or fe male climacteric states 12/11/2010 02/20/2020 Hyperlipidemia LDL goal <130 11/20/2004 04/17/2019 Palpitations 11/20/2004 04/17/2019 documented as of this encounter (statuses as of 02/21/2023) [facility]* Problem Noted Date Diagnosed Date Resolved Date Plantar fasciitis 10/17/2018 02/20/2020 Piriformis syndrome of left side 08/20/2015 04/17/2019 Irregular menstrual cycle 12/11/2010 Dysmenorrhea 12/11/2010 04/05/2014 Symptomatic menopausal or fe male climacteric states 12/11/2010 02/20/2020 Hyperlipidemia LDL goal <130 11/20/2004 04/17/2019 Palpitations 11/20/2004 04/17/2019 documented as of this encounter (statuses as of 03/23/2023) [facility] History of Past illness Narrative* Problem Noted Date Diagnosed Date Resolved Date Plantar fasciitis 10/17/2018 02/20/2020 Piriformis syndrome of left side 08/20/2015 04/17/2019 Irregular menstrual cycle 12/11/2010 Dysmenorrhea 12/11/2010 04/05/2014 Symptomatic menopausal or fe male climacteric states 12/11/2010 02/20/2020 Hyperlipidemia LDL goal <130 11/20/2004 04/17/2019 Palpitations 11/20/2004 04/17/2019 documented as of this encounter (statuses as of 06/02/2023) [facility] History of Past illness Narrative* Problem Noted Date Diagnosed Date Resolved Date Plantar fasciitis 10/17/2018 02/20/2020 Piriformis syndrome of left side 08/20/2015 04/17/2019 Irregular menstrual cycle 12/11/2010 Dysmenorrhea 12/11/2010 04/05/2014 Symptomatic menopausal or fe male climacteric states 12/11/2010 02/20/2020 Hyperlipidemia LDL goal <130 11/20/2004 04/17/2019 Palpitations 11/20/2004 04/17/2019 documented as of this encounter (statuses as of 06/18/2023) [facility] Pain of left upper arm- Primary [facility] Breast pain, left- Primary Mastodynia [...] DNA test positive documented in this encounter [facility] note* Diagnosis Cervical high risk HPV (human papillomavirus) test positive- Primary Cervical high risk human papillomavirus (HPV) DNA test positive Need for influenza vaccination Need for prophylactic vaccination and inoculation against influenza documented in this encounter [facility] note* Diagnosis Upper respiratory infection, acute- Primary Acute upper respiratory infections of unspecified site Longitudinal melanonychia Other specified disease of nail [facility] Diagnosis Gastroesophageal reflux disease without esophagitis Esophageal reflux [facility]* Diagnosis Numbness and tingling- Primary Disturbance of skin sensation documented in this encounter [facility] note* Diagnosis Sore throat- Primary Acute pharyngitis Viral URI with cough Acute upper respiratory infections of unspecified site [facility] [place] [facility]* Diagnosis Urinary frequency- Primary documented in this encounter [facility] note* Diagnosis Dysuria- Primary Vaginal irritation Unspecified noninflammatory disorder of vagina documented in this encounter [facility] note* Diagnosis Gastroesophageal reflux disease without esophagitis Esophageal reflux [facility] [place] [facility]* Diagnosis Encounter for screening mammogram for breast cancer documented in this encounter [facility] note* Diagnosis Urinary frequency- Primary documented in this encounter [facility] note* Diagnosis Pain with urination- Primary Renal colic documented in this encounter [facility] for referral (narrative)* Diagnostic Procedure Only (Routine) - Authorized Specialty Diagnoses / Procedures Referred By Danii correa Referred To Contact [facility] Diagnoses Encounter for screening mammogram for malignant neoplasm of breast Procedures MINDI SCREENING W JEZ SCREENING DIGITAL BREAST TOMOSYNTHESIS BI SCREENING MAMMOGRAPHY BI 2-VIEW BREAST INC Miky Deleon MD [address] [place] [address] [facility] [address] [place] [address] Referral ID Status Reason Start Date Expiration Date Visits Requested Visits Authorized [id number] Authorized Auto-Generat ed Referral 2 04/02/2023 1 1 [facility] for referral (narrative)* Diagnostic Procedure Only (Routine) - Closed Specialty Diagnoses / Procedures Referred By Danii correa Referred To Contact [facility] Diagnoses Encounter for screening mammogram for breast cancer Procedures MINDI SCREENING W JEZ SCREENING BREAST DGTL JEZ UNI/BILAT ADD ON SCREENING MAMMOGRAPHY BI 2-VIEW BREAST INC Charley Harry APRN.RYLEE [address] [place] [place] [address] [facility] [address] [place] [address] Referral ID Status Reason Start Date Expiration Date V isits Requested Visits Authorized Closed Auto-Generate d Referral 02/20/2021 03/22/2022 1 1 [facility] for visit Narrative* Diagnostic Procedure Only (Routine) - Closed Specialty Diagnoses / Procedures Referred By Danii correa Referred To Contact [facility] Diagnoses Encounter for screening mammogram for breast cancer Procedures MINDI SCREENING W JEZ SCREENING BREAST DGTL JEZ UNI/BILAT ADD ON SCREENING MAMMOGRAPHY BI 2-VIEW BREAST INC Charley Harry APRN.CNM [address] [place] [address] [facility] [address] [place] [address] Referral ID Status Reason Start Date Expiration Date V isits Requested Visits Authorized Closed Auto-Generate d Referral 02/20/2021 03/22/2022 1 1 [facility] Summary Purpose Family History No Family [...] section and content) DATE CREATED AUTHOR AUTHOR'S ORGANJAK ATION 02/28/2020 [facility] DATE CREATED AUTHOR AUTHOR'S ORGANIZ ATION 12/24/2021 [facility] DATE CREATED AUTHOR AUTHOR'S ORGANIZ ATION 06/20/2023 [facility] Source Comments (unrecognize d section and content) In the event this informatio n is protected by the Federal Confidentiality of Alcohol and Drug Abuse Patient Records regulations: The Federal rules restrict any use of the information to criminally investigate or prosecute any alcohol or drug abuse patient.[facility] the event this information is protected by the Federal Confidentiality of Alcohol and Drug Abuse Patient Records regulations: The Federal rules restrict any use of the information to criminally investigate or prosecute any alcohol or drug abuse patient.[facility] the event this information is protected by the Federal Confidentiality of Alcohol and Drug Abuse Patient Records regulations: The Federal rules restrict any use of the information to criminally investigate or prosecute any alcohol or drug abuse patient.[facility] the event this information is protected by the Federal Confidentiality of Alcohol and Drug Abuse Patient Records regulations: The Federal rules restrict any use of the information to criminally investigate or prosecute any alcohol or drug abuse patient.[facility] the event this information is protected by the Federal Confidentiality of Alcohol and Drug Abuse Patient Records regulations: The Federal rules restrict any use of the information to criminally investigate or prosecute any alcohol or drug abuse patient.[facility] the event this information is protected by the Federal Confidentiality of Alcohol and Drug Abuse Patient Records regulations: The Federal rules restrict any use of the information to criminally investigate or prosecute any alcohol or drug abuse patient.[facility] the event this information is protected by the Federal Confidentiality of Alcohol and Drug Abuse Patient Records regulations: The Federal rules restrict any use of the information to criminally investigate or prosecute any alcohol or drug abuse patient.[facility] the event this information is protected by the Federal Confidentiality of Alcohol and Drug Abuse Patient Records regulations: The Federal rules restrict any use of the information to criminally investigate or prosecute any alcohol or drug abuse patient.[facility] the event this information is protected by the Federal Confidentiality of Alcohol and Drug Abuse Patient Records regulations: The Federal rules restrict any use of the information to criminally investigate or prosecute any alcohol or drug abuse patient.[facility] the event this information is protected by the Federal Confidentiality of Alcohol and Drug Abuse Patient Records regulations: The Federal rules restrict any use of the information to criminally investigate or prosecute any alcohol or drug abuse patient.[facility] the event this information is protected by the Federal Confidentiality of Alcohol and Drug Abuse Patient Records regulations: The Federal rules restrict any use of the information to criminally investigate or prosecute any alcohol or drug abuse patient.[facility] the event this information is protected by the Federal Confidentiality of Alcohol and Drug Abuse Patient Records regulations: The Federal rules restrict any use of the information to criminally investigate or prosecute any alcohol or drug abuse patient.[facility] the event this information is protected by the Federal Confidentiality of Alcohol and Drug Abuse Patient Records regulations: The Federal rules restrict any use of the information to criminally investigate or prosecute any alcohol or drug abuse patient.[facility] the event this information is protected by the Federal Confidentiality of Alcohol and Drug Abuse Patient Records regulations: The Federal rules restrict any use of the information to criminally investigate or prosecute any alcohol or drug abuse patient.[facility] the event this information is protected by the Federal Confidentiality of Alcohol and Drug Abuse Patient Records regulations: The Federal rules restrict any use of the information to criminally investigate or prosecute any alcohol or drug abuse patient.[facility] the event this information is protected by the Federal Confidentiality of Alcohol and Drug Abuse Patient Records regulations: The Federal rules restrict any use of the information to criminally investigate or prosecute any alcohol or drug abuse patient.[facility] the event this information is protected by the Federal Confidentiality of Alcohol and Drug Abuse Patient Records regulations: The Federal rules restrict any use of the information to criminally investigate or prosecute any alcohol or drug abuse patient.[facility] the event this information is protected by the Federal Confidentiality of Alcohol and Drug Abuse Patient Records regulations: The Federal rules restrict any use of the information to criminally investigate or prosecute any alcohol or drug abuse patient.[facility] Hospital[facility] the event this information is protected by the Federal Confidentiality of Alcohol and Drug Abuse Patient Records regulations: The Federal rules restrict any use of the information to criminally investigate or prosecute any alcohol or drug abuse patient.[facility] Hospital[facility] the event this information is protected by the Federal Confidentiality of Alcohol and Drug Abuse Patient Records regulations: The Federal rules restrict any use of the information to criminally investigate or prosecute any alcohol or drug abuse patient.[facility] Reason for Visit (unrecogniz ed section and content) Reason Comments Yearly Exam Reason Onset Date Comments Colposcopy Immunizations 03/23/2022 Flu vaccination Specialty Diagnoses / Procedures Referred By Contac t Referred To Contact [facility] Diagnoses Cervical high risk HPV (human papillomavirus) test positive Procedures COLPOSCOPY COLPOSCOPY CERVIX BX CERVIX & ENDOCRV CURRETAGE Miky Urbano MD [address] [place] [address] [facility] [address] [place] [address] Referral ID Status Reason Start Date Expiration Date V isits Requested Visits Authorized [id number] Closed Auto-Generate d Referral 03/06/2022 03/06/2023 1 1 Reason Comments Cough Reason Comments URI Sore throat, cough, nasal congestion & feeling winded after walking x3 days Nail Fungus Black and yellow fun naveen to both big toes on feet Specialty Diagnoses / Procedures Referred By Contac t Referred To Contact [facility] Diagnoses Consult test treat Procedures Consult test treat Self [facility] [address] [place] [address] Referral ID Status Reason Start Date Expiration Date V isits Requested Visits Authorized [id number] Closed OON/Self Pay Override Financial Clearance Required [...] MIN EST SAME DAY Self Maggi Taveras APRN.CNP [address] [place] [id number] Referral ID Status Reason Start Date Expiration Date Visits Re quested Visits Authorized [id number] Closed 09/21/2022 04/18/2023 1 1 Reason Comments Urinary Frequency With low back pain x 1 day Specialty Diagnoses / Procedures Referred By Contac t Referred To Contact [facility] Diagnoses Low back pain possible uti, low back pain and frequency Procedures OFFICE/OUTPATIENT ESTABLISHED MOD MDM 30-39 MIN EST SAME DAY Self Reji Lafleur MD [address] [place] [address] Referral ID Status Reason Start Date Expiration Date Visits Re quested Visits Authorized [id number] Closed 10/02/2022 04/18/2023 1 1 Reason Comments [...] MOD MDM 30-39 MIN Ramez Sanchez MD [address] [place] [address] [facility] [address] [place] [address] Referral ID Status Reason Start Date Expiration Date Visits Re quested Visits Authorized [id number] Closed 10/13/2022 04/18/2023 1 1 Reason Onset Date Comments Refill Request 10/29/2022 Reason Comments Physical Reason Comments Urinary Problem Frequency, painful x 3 days Reason Comments UTI Low back pain, pain after urination x 2.5 weeks, 06/02 for same Care Teams (unrecognized sec tion and content) 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 [place] [address] PCP - General Family Medicine 03/19/21 Tractor Operator Relationship Specialty Start Date End Date Ramez Sanchez MD [address] [place] [address], [place] [address] PCP - General Family Medicine 03/19/21 Tractor Operator Relationship Specialty Start Date End Date Ramez Sanchez MD [address] [place] [address], [place] [address] PCP - General Family Medicine 03/19/21 Tractor Operator Relationship Specialty Start Date End Date Ramez Sanchez MD [facility] [facility] [place] [place] [address] PCP - General Family Medicine 03/19/21 Tractor Operator Relationship Specialty Start Date End Date Ramez Sanchez MD [facility] [place] [place] [address] PCP - General Family Medicine 03/19/21 Tractor Operator Relationship Specialty Start Date End Date Ramez Sanchez MD [address] [place] [address], [place] [address] PCP - General Family Medicine 03/19/21 Tractor Operator Relationship Specialty Start Date End Date Ramez Sanchez MD [address] [place] [address], [place] [address] PCP - General Family Medicine 03/19/21 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 [place] [address] PCP - General Family Medicine 03/19/21 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 [place] [address] PCP - General Family Medicine 03/19/21 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 [place] [address] PCP - General Family Medicine 03/19/21 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 [place] [address] PCP - General Family Medicine 03/19/21 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 [place] [address] PCP - General Family Medicine 03/19/21 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 [place] [address] PCP - General Family Medicine 03/19/21 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 [place] [address] PCP - General Family Medicine 03/19/21 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 [address] PCP - General Family Medicine 03/19/21 FOR [...] BE BASED ON THE PRIMARY CLINICAL RECORDS. [facility]. provides no warranty or guarantee of the accuracy or completeness of information in this document.
[2023-06-21 11:37] VITALS: BP 125/77; PULSE 76; RESP 13; O2SAT 96
[2023-06-21 11:58] VITALS: BP 129/74; PULSE 80; RESP 19; O2SAT 98
[2023-06-21 12:36] VITALS: BP 112/87; PULSE 72; RESP 16; TEMP 36.4; O2SAT 98
== END 2023-06-21 12:36 | disposition home or self-care (01) ==
PROVIDERS: Emergency Provider Emergency Medicine; PCP Family Medicine; Visit Provider Emergency Medicine
DX: R07.89 Other chest pain (principal); R61 Generalized hyperhidrosis; K21.9 Gastro-esophageal reflux disease without esophagitis; Z79.899 Other long term (current) drug therapy
CPT/HCPCS: 80048; 84484; 85025; 93005; 99284; A4216

== ENCOUNTER → 2023-08-19 | Outpatient (CLI) | payer OTHER, SELFPAY ==
--- NOTE | 2023-08-19 14:43 | CT_ITS ---
STUDY: CTA HEAD AND NECK WITH CONTRAST REASON FOR EXAM: Female, 58 years old. L PULSATILE TINNITUS RADIATION DOSAGE (If Supplied By Facility): CTDIvol = ( 18.71 ) mGy, DLP = ( 739.62 ) mGycm TECHNIQUE: CT angiography was performed with a multi-detector CT scanner. Data acquisition was obtained from the skull base through the vertex following intravenous administration of 100mL Isovue-370. MIP images were reconstructed from the axial data set. Post-processing of the angiographic images was performed, with multiplanar reformation and 3D reconstruction. Individualized dose optimization techniques were used for this CT. COMPARISON: No relevant priors. FINDINGS: Normal bilateral petrous carotid arteries. Normal right cavernous carotid artery with a normal supraclinoid bifurcation. Normal left cavernous carotid artery with a normal supraclinoid bifurcation. Normal right A1 segments of the anterior cerebral artery. Normal left A1 segments of the anterior cerebral artery. Normal intact anterior communicating artery (ACOM). Normal bilateral A2 segments of the anterior cerebral arteries. Normal right M1 and M2 segments of the middle cerebral arteries, with a normal M1 bifurcation. Normal left M1 and M2 segments of the middle cerebral arteries, with a normal M1 bifurcation. Normal right posterior communicating artery (PCOM). Normal left posterior communicating artery (PCOM). Normal bilateral vertebral arteries. Normal basilar artery with a normal basilar bifurcation. The visualized bilateral superior cerebellar (SCA) arteries are normal. Normal bilateral P1, P2 and visualized P3 segments of the posterior cerebral arteries. There is no demonstrated aneurysm of the [place]. There is no demonstrated abnormality of the visualized brain. AORTIC ARCH: Normal visualized aortic arch. 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 RIGHT CAROTID ARTERIES: Normal right common carotid artery (CCA). Normal right common carotid bulb. Normal origin of the right internal carotid (ICA) artery without a hemodynamically significant stenosis. Normal visualized cervical portion of the right internal carotid artery. Normal origin of the right external carotid artery (ECA). LEFT CAROTID ARTERIES: Normal left common carotid artery (CCA). There is mild atherosclerotic plaque formation with minimal narrowing of the left carotid bulb. Normal origin of the left internal carotid (ICA) artery without a hemodynamically significant stenosis. Normal visualized cervical portion of the left internal carotid artery. Normal origin of the left external carotid artery (ECA). VERTEBRAL ARTERIES: Normal bilateral vertebral arteries. CT/CTA Head AND Neck W/ Contrast IMPRESSION: Normal CTA Head. No aneurysm or large vessel occlusion. Mild plaque of the left carotid bifurcation. No internal carotid artery stenosis. Electronically Signed: Chaka Ballesteros MD at 11:26 EDT ,
== END | disposition home or self-care (01) ==
LOC: CT 14:41
PROVIDERS: PCP Family Medicine; Referring Provider Otolaryngology; Visit Provider Otolaryngology
DX: H93.A2 Pulsatile tinnitus, left ear (principal)
CPT/HCPCS: 70496; 70498; Q9967